=== PATIENT | female | born 1950 | race Caucasian/White ===

== ENCOUNTER → 2022-12-24 | Outpatient (CLI) | payer MEDICARE, SELFPAY | END | disposition home or self-care (01) | PROVIDERS: Visit Provider Nurse Practitioner | DX: J34.89 Other specified disorders of nose and nasal sinuses (principal) | CPT/HCPCS: 87070; 87077; 87186; 87205; 87252; 87255 ==

== ENCOUNTER → 2025-08-27 | Outpatient (CLI) | payer MEDICARE, SELFPAY ==
--- OUTSIDE RECORDS SUMMARY | 2025-08-27 23:26 | XMS RPT_ITS | CCD ---
Author Organization [facility] Care Team Providers Care Dog Boarder Name Role Phone Javier Ny Primary Care Provider [phone] Nola Velasquez MD, Grant Sterling [facility] Provi sharif Nola Velasquez MD, Grant Sterling [facility] Provi sharif KRISTY MCKNIGHT Attending Unavailable KRISTY MCKNIGHT Referring Unavailable GRANT VACA JR Primary Care Unavail able KRISTY MCKNIGHT Attending Unavailable GRANT VACA JR Referring Unavail able GRANT VACA JR [facility] Unavail able Javier Ny Primary Care Provider [phone] Rich DO, Rex E Unavailable [phone] Chary Gamez MD Unavailable Kristy Mcknight MD Unavailable Nola Velasquez MD, Grant Sterling [facility] Care Provi sharif Delbert Gibson Attending Unavailable Tano Kelly Attending Unavailable Delbert Gibson Attending Unavailable Javier Ny MD Primary Care Provider [phone] LUIS A VICTOR Referring Unavailable GRANT VACA JR Primary Care Unavail able LUIS A VICTOR Referring Unavailable GRANT VACA JR Primary Care Unavail able Rich DO, Rex E Unavailable Chary Gamez MD Unavailable [phone] Unavailable Primary Care Provider Unavailabl e CHARY GAMEZ Attending Unavailable JAVIER [place] Primary Care Unavailable CHARY GAMEZ Attending Unavailable JAVIER [place] Primary Care Unavailable REX VILLANUEVA Attending Unavailable JAVIER [place] Primary Care Unavailable Zara Key MD Primary Care Provider [phone] Elvis Pacheco MD Unavailable Kerwin Tejada Unavailable Zara Key MD Unavailable ZARA KEY Referring Unavailable ZARA KEY Primary Care Unavailable ASHOK LUNDBERG Referring Unavailable KERWIN TEJADA Primary Care Unavailable ZARA KEY Attending Unavailable SHAHID, ZARA Primary Care Unavailable BLAS TRINIDAD Attending Unavailable KERWIN TEJADA Primary Care Unavailable ZARA KEY Attending Unavailable ZARA KEY Primary Care Unavailable Allergies Allergy Classification Reported Allergen(s) Allergy Type Date of Onset Reaction(s) Facility (20 sources) Sulfamethoxazole / Trimethoprim; Translations: [SULFAMETHOXAZOLE-TR IMETHOPRIM] Drug Allergy 3 Rash [facility] (1 source) Sulfamethoxazole Drug Allergy 4 [facility] (1 source) Trimethoprim Drug Allergy 4 [facility] (1 source) sulfADIAZINE Drug Allergy 4 [facility] [place] [facility] Medications Current Medications Medication Drug Class(es) Dates Sig (Normalized) Sig (Original) acetaminophen 325 mg / HYDROcodone bitartrate 5 mg oral tablet (20 sources) Opioid Agonist Start: 08-13-2023 take 1 tablet by mouth every six hours as needed for pain HYDROcodone-acetam inophen (NORCO) 5-325 mg per tablet Indications: Strain of lumbar paraspinous muscle, initial encounter Take 1 tablet by mouth every 6 hours as needed for pain. 30 tablet 08/13/2023 Active Start: 07-15-2018 End: 07-23-2022 take 1 tablet by mouth every six hours Hydrocodone-Acetaminophen Discontinued 1 TABLET PO EVERY 6 HOURS July 15, 2018 1:00am July 23, 2022 7:05pm Comment on above: Take 1 tablet by roselyn th every 6 hours as needed for pain. anastrozole 1 mg oral tablet (1 source) Aromatase Inhibitor Start: 2 End: 3 take 1 tablet by mouth once daily anastrozole (ARIMIDEX) 1 MG tablet Indications: Ductal carcinoma in situ (DCIS) of right breast Take 1 tablet by mouth daily 90 tablet 3 01/20/2022 01/15/2023 Active b complex vitamins capsule (20 sources) take 1 capsule by mouth once daily b complex vitamins capsule Take 1 capsule by mouth daily. Active take 1 capsule by mouth once all ly b complex vitamins capsule Take 1 capsule by mouth daily. 0 Active take 1 capsule by mouth once all ly b complex vitamins capsule Take 1 capsule by mouth daily 0 Active B2/vits A,C,E/lut/zeaxanth/m in (ICAPS ORAL) (20 sources) B2/vits A,C,E/yovanny t/zeaxanth/min (ICAPS ORAL) Take by mouth. Active B2/vits A,C,E/yovanny t/zeaxanth/min (ICAPS ORAL) Take by mouth. 0 Active Comment on above: Take by mouth. bimatoprost 0.1 mg/ml ophthalmic solution (20 sources) Prostaglandin Analog Start: 8 take 0.01 drop(s) into the eye(s) once daily in the evening Bimatoprost (Lumigan) 0.01 % drops Active 1 DRP OPHTHALMIC EVERY EVENING July 15, 2018 1:00am Start: 05-07-2016 take 1 drop(s) into the eye(s) once daily at bedtime LUMIGAN 0.01 % drop ophthalmic drops Use 1 Drop in both eyes daily at bedtime. 05/07/2016 Active Start: 05-07-2016 take 1 drop(s) into the eye(s) once daily in the evening Lumigan 0.01 % ophthalmic solution instill 1 (ONE) DROP IN BOTH EYES EVERY evening 07/14/2022 Active Lumigan 0.01 % e ye drops 1 drop into both eyes every night active Annalee Su [facility] Comment on above: Use 1 Drop in both e yes daily at bedtime. calcium carbonate 1250 mg chewable tablet (1 source) Start: 8 take 1 tablet by mouth twice daily Calcium Carbonate (Calcium 500) 500 mg calcium (1,250 mg) tablet,chewable Active 500 MG PO TWICE A DAY July 15, 2018 1:00am cholecalciferol 0.025 mg oral capsule (20 sources) Vitamin D take 2 capsules by mouth once daily Cholecalciferol, Vitamin D3, 25 mcg (1,000 unit) cap Take 2 capsules by mouth once daily. Vitamin D3 Active take 1 capsule by mouth once all ly Cholecalciferol, Vitamin D3, 25 mcg (1,000 unit) cap Take 1 capsule by mouth once daily. Vitamin D3 Active take 1 tablet by mouth once malu y vitamin D3 (CHOLECALCIFEROL) 10 MCG (400 UNIT) TABS tablet Take 400 Units by mouth daily 0 Active Comment on above: Take 1 capsule by mo ut once daily. Vitamin D3 cyclobenzaprine hydrochloride 5 mg oral tablet (15 sources) Muscle Relaxant Start: 07-23-20 take 1 tablet by mouth three times daily as needed cyclobenzaprine (Flexeril) 5 MG tablet Take 5 mg by mouth 3 times daily as needed. 07/23/2022 Active famotidine 40 mg oral tablet (20 sources) Histamine-2 Receptor Antagonist take 1 tablet by mouth once daily famotidine 40 mg tablet 1 tablet by mouth once a day active Annalee Su [facility] [place] [facility] Comment on above: Take 40 mg by mouth once daily. L.acid/L.casei/B.bif/B. rudolph/FOS (PROBIOTIC BLEND ORAL) (20 sources) L.acid/L.casei/B .bif/B .rudolph/FOS (PROBIOTIC BLEND ORAL) Take by mouth. Active L.acid/L.casei/B .bif/B.rudolph/FOS (PROBIOTIC BLEND ORAL) Take by mouth. 0 Active Comment on above: Take by mouth. lecithin 1200 mg oral capsule (20 sources) Start: 07-15-2018 take 1200 mg by mouth once daily Lecithin Active 1200 MG PO DAILY July 15, 2018 1:00am take 2 capsules by mouth once da shoaib LECITHIN ORAL Take 2 capsules by mouth once daily. Active take 2 capsules by mouth once da shoaib LECITHIN ORAL Take 2 capsules by mouth once daily. 0 Active Comment on above: Take 2 capsules by m out once daily. letrozole 2.5 mg oral tablet (20 sources) Aromatase Inhibitor Start: 04-05-2022 End: 07-19-2025 take 1 tablet by mouth once daily letrozole (FEMARA) 2.5 mg tablet Take 2.5 mg by mouth once daily. 04/05/2022 Active Comment on above: Take 2.5 mg by mouth once daily. losartan potassium 100 mg oral tablet (20 sources) Angiotensin 2 Receptor Charlie Start: 07-26-2022 take 100 mg by mouth once daily Losartan Active 100 MG PO DAILY July 26, 2022 12:06pm Start: 11-13-2021 End: 06-22-2024 take 1 tablet by mouth once daily losartan (COZAAR) 100 mg tablet Indications: Essential hypertension Take 1 tablet by mouth once daily. 90 tablet 3 06/22/2024 Active Start: 09-26-2021 End: 11-13-2021 take 1.5 tablets by mouth once daily losartan (COZAAR) 50 mg tablet Indications: Essential hypertension Take 1.5 tablets by mouth once daily. 135 tablet 3 09/26/2021 11/13/2021 Discontinued Start: 09-26-2021 losartan (COZA AR) 50 MG tablet 100 mg 0 09/26/2021 Active Start: 07-15-2018 End: 07-26-2022 take 1 tablet by mouth once daily losartan (COZAAR) 50 MG tablet TAKE 1 & 1/2 (ONE AND ONE-HALF) TABLETS BY MOUTH ONCE DAILY 0 09/26/2021 Active Comment on above: Take 1 tablet by roselyn once daily. MEDICATION, NON-DATABASE (20 sources) take 2 tablets by mouth once daily MEDICATION, NON-DATABASE Take 2 tablets by mouth once daily. ambrotose AO Active take 2 tablets by mouth once all ly MEDICATION, NON-DATABASE Take 2 tablets by mouth once daily. ambrotose AO 0 Active Comment on above: Take 2 tablets by mo [facility] once daily. ambrotose AO metoprolol tartrate 25 mg oral tablet (20 sources) beta-Adrenergic Charlie Start: 11-27-2022 End: 06-22-2024 take 1 tablet by mouth twice daily metoprolol tartrate, short acting, (LOPRESSOR) 25 mg tablet Take 1 tablet by mouth two times a day. 180 tablet 3 06/22/2024 Active Comment on above: Take 1 tablet by roselyn twice daily. Milk Thistle (20 sources) Start: 07-15-2018 take 150 mg by mouth twice daily Milk Thistle Active 150 MG PO TWICE A DAY July 15, 2018 1:00am take 2 capsules by mouth once da shoaib MILK THISTLE ORAL Take 2 capsules by mouth once daily. Active take 2 capsules by mouth once da shoaib MILK THISTLE ORAL Take 2 capsules by mouth once daily. 0 Active Comment on above: Take 2 capsules by m outh once daily. Multiple Vitamin (Multi-Vitamin) tablet (8 sources) take 1 tablet by mouth in the morning Multiple Vitamin (Multi-Vitamin) tablet Take 1 tablet by mouth in the morning. Active take 1 tablet by mouth in the mo rning Multiple Vitamin (Multi-Vitamin) tablet Take 1 tablet by mouth in the morning. 0 Active Multiple Vitamin (MULTIVITAM IN ADULT PO) (20 sources) Multiple Vitamin (MULTIVITAMIN ADULT PO) Take by mouth 0 Active Multiple Vitamins-Minerals (ICAPS AREDS FORMULA PO) (8 sources) Start: 08-09-2019 Multiple Vitam ins-Minerals (ICAPS AREDS FORMULA PO) twice a day. 08/09/2019 Active Start: 08-09-2019 Multiple Vitam ins-Minerals (ICAPS AREDS FORMULA PO) twice a day. 0 08/09/2019 Active multivitamin tablet (20 sources) take 1 tablet by roselyn th once daily multivitamin tablet Take 1 tablet by mouth once daily. Active take 1 tablet by mouth once malu y multivitamin tablet Take 1 tablet by mouth once daily. 0 Active Comment on above: Take 1 tablet by roselyn th once daily. Mupirocin (2 sources) RNA Synthetase Inhibitor Antibacterial Start: 12-24-2022 Mupirocin Active 1 APPLIC TOPICAL THREE TIMES A DAY December 24, 2022 12:00am Start: 11-10-2018 End: 07-23-2022 Mupirocin Discontinued 1 CAL LIC TOPICAL DAILY November 10, 2018 1:00am July 23, 2022 7:06pm Nutritional Supplements (NUTRITIONAL SUPPLEMENT PO) (20 sources) Nutritional Supp lements (NUTRITIONAL SUPPLEMENT PO) Take by mouth Vitamin A,C, E, Zinc, Copper, 0 Active OTC NUTRITIONAL SUPPLEMENT (12 sources) take 2 tablets by mo uth once daily OTC NUTRITIONAL SUPPLEMENT Take 2 tablets by mouth once daily. Ambrotose AO Active take 1 capsule by mouth once all ly OTC NUTRITIONAL SUPPLEMENT Take 1 capsule by mouth once daily. Floragen Active perflutren lipid microspheres 1.3 mL in NaCl (PF) 0.9% 10 mL injection (DEFINITY) (11 sources) Start: 03-18-2023 End: 06-16-2024 perflutren lipid microspheres 1.3 mL in NaCl (PF) 0.9% 10 mL injection (cooala - your brands) pimecrolimus 10 mg/ml topical cream (15 sources) Calcineurin Inhibitor Immunosuppressant Start: 05-15-2021 End: 11-23-2022 pimecrolimus (Elidel) 1 % cream as needed. 05/15/2021 Active predniSONE 20 mg oral tablet (1 source) Start: 07-23-2022 take 40 mg by mouth once daily Prednisone Active 40 MG PO DAILY July 23, 2022 1:00am Probiotic Product (PROBIOTIC BLEND PO) (20 sources) take 1 capsule by mouth once daily Probiotic Product (PROBIOTIC BLEND PO) Take 1 capsule by mouth daily. Active take 1 capsule by mouth once all ly Probiotic Product (PROBIOTIC BLEND PO) Take 1 capsule by mouth daily. 0 Active Probiotic Produc t (PROBIOTIC BLEND PO) Take by mouth 0 Active Riboflavin (20 sources) take 2 capsules by m outh once daily RIBOFLAVIN PO Take 2 capsules by mouth daily. Active take 2 capsules by mouth once da shoaib RIBOFLAVIN PO Take 2 capsules by mouth daily. 0 Active Riboflavin (B-2 PO) Take by mouth 0 Active silver sulfADIAZINE 10 mg/ml topical cream (1 source) Sulfonamide Antibacterial Start: 01-12-2022 silver sulfADIAZINE (SILVADENE) 1 % cream Apply topically thin layer 2-3 times a day to skin, do not have on for radiation. 400 g 0 01/12/2022 Active 125 ml sodium chloride 9 mg/ml prefilled syringe (11 sources) Start: 03-18-2023 End: 06-16-2024 sodium chloride 0.9 % (flush) 10 mL (BD POSIFLUSH) sulfamethoxazole 800 mg / trimethoprim 160 mg oral tablet (1 source) Dihydrofolate Reductase Inhibitor Antibacterial, Sulfonamide Antimicrobial Start: 12-25-2022 take 1 tablet by mouth twice daily Sulfamethoxazole-T rimethoprim Active 1 TABLET PO TWICE A DAY December 25, 2022 12:00am triamcinolone acetonide 0.001 mg/mg topical ointment (20 sources) Corticosteroid Start: 07-16-2022 End: 06-22-2024 triamcinolone (Kenalog) 0.1 % ointment Apply topically twice a day. 07/16/2022 Active Comment on above: Apply to affected ar ea twice daily. APPLY TO AFFECTED AREA. UNABLE TO FIND (8 sources) take 2 tablets by mouth once daily UNABLE TO FIND Take 2 tablets by mouth daily. Med Name: Collatrim Active take 2 tablets by mouth once all ly UNABLE TO FIND Take 2 tablets by mouth daily. Med Name: Collatrim 0 Active Vitamin B Complex (1 source) Start: 07-15-2018 take 1 tablet by roselyn once daily Vitamin B Complex Active 1 TABLET PO DAILY July 15, 2018 1:00am vitamin b complex capsule (20 sources) take 2 capsules by mouth once daily vitamin b complex capsule Take 2 capsules by mouth once daily. Active take 2 capsules by mouth once da shoaib vitamin b complex capsule Take 2 capsules by mouth once daily. 0 Active Comment on above: Take 2 capsules by m outh once daily. Completed/Discontinued Medications Medication Drug Class(es) Dates Sig (Normalized) Sig (Original) amoxicillin 875 mg / clavulanate 125 mg oral tablet (1 source) Penicillin-class Antibacterial Start: 07-15-2018 End: 07-23-2022 take 1 tablet by mouth twice daily Amoxicillin-Pot Clavulanate Discontinued 1 TABLET PO TWICE A DAY July 15, 2018 1:00am July 23, 2022 7:05pm B Complex Vitamins (VITAMINS B COMPLEX) capsule (2 sources) take 2 capsules by mouth once daily B Complex Vitamins (VITAMINS B COMPLEX) capsule Take 2 capsules by mouth once daily. 0 Active Comment on above: Take 2 capsules by m outh once daily. esomeprazole 20 mg delayed release oral capsule (20 sources) Proton Pump Inhibitor End: 08-25-2024 take 1 capsule by mouth once daily esomeprazole magnesium 22.3 mg cpDR Take 1 capsule by mouth once daily. 08/25/2024 Discontinued End: 07-21-2023 take 20 mg by mouth once daily esomeprazole (NexIUM) 2 0 MG packet Take 20 mg by mouth daily. 0 07/21/2023 Discontinued Comment on above: Take 1 capsule by mo gah once daily. 10 ml lidocaine hydrochloride 20 mg/ml injection (1 source) Antiarrhythmic, Amide Local Anesthetic Start: 2 End: 2 SUBCUTANEOUS, NEEDED, Starting on Makenna 10/02/21 at 1539, Until Makenna 10/02/21 at 1539 lisinopril 20 mg oral tablet (1 source) Angiotensin Converting Enzyme Inhibitor Start: 8 End: 8 take 20 mg by mouth once daily Lisinopril Discontinued 20 MG PO DAILY July 15, 2018 1:00am July 15, 2018 9:33pm naproxen 375 mg oral tablet (7 sources) Nonsteroidal Anti-inflammatory Drug Start: 3 End: 4 naproxen (NAPROSYN) 375 mg tablet Indications: Strain of lumbar paraspinous muscle, initial encounter 1 - 1.5 tabs twice daily with food 75 tablet 1 08/13/2023 06/22/2024 Discontinued Comment on above: 1 - 1.5 tabs twice d aily with food 12 hr orphenadrine citrate 100 mg extended release oral tablet (1 source) Muscle Relaxant Start: 8 End: 8 take 100 mg by mouth once Orphenadrine Citrate Discontinued 100 MG PO ONCE July 15, 2018 1:00am July 15, 2018 9:34pm regadenoson 0.4 mg injection (LEXISCAN) (2 sources) Start: 4 End: 4 regadenoson 0.4 mg injection (LEXISCAN) Start: 07-03-2024 End: 07-03-2024 0.4 mg, INTRAVENOUS, ONCE, 1 dose, On 07/03/24 at 1430, Give 0.4 mg (5 mL) over ~10 seconds, followed immediately by a 5 mL saline flush. Wait 10-20 seconds, then administer the radionuclide myocardial perfusion imaging agent. valACYclovir 1000 mg oral tablet (1 source) Herpesvirus Nucleoside Analog DNA Polymerase Inhibitor, Herpes Simplex Virus Nucleoside Analog DNA Polymerase Inhibitor, Herpes Zoster Virus Nucleoside Analog DNA Polymerase Inhibitor Start: 11-10-2018 End: 11-23-2018 take 2000 mg by mouth twice daily Valacyclovir Discontinued 2000 MG PO TWICE A DAY 4 November 10, 2018 1:00am November 23, 2018 12:07am vit A/vit C/vit E/zinc/copper (ICAPS AREDS ORAL) (7 sources) Start: 08-09-2019 End: 11-23-2022 vit A/vit C/vit E/zinc/copper (ICAPS AREDS ORAL) twice daily. 08/09/2019 11/23/2022 Discontinued (Course of therapy completed) Start: 08-09-2019 vit A/vit C/vi t E/zinc/copper (ICAPS AREDS ORAL) twice daily. 0 08/09/2019 Active Comment on above: twice daily. Problems Active Problems Problem Classification Problem Date Documented Date Episodic/Chronic Alcohol-related disorders (20 sources) Alcohol abuse; Translations: [Alcohol abuse, uncomplicated] Onset: 01-20-2019 10-29-2021 Chronic Bacterial infection; unspecified site (1 source) Infection due to Staphylococcus aureus; Translations: [Methicillin susceptible Staphylococcus aureus infection, unspecified site] 12-25-2022 Episodic Cancer of breast (20 sources) Intraductal carcinoma in situ of right breast; Translations: [Intraductal carcinoma in situ of right breast] Onset: 10-09-2021 10-29-2021 Chronic Esophageal disorders (20 sources) Reed's esophagus; Translations: [Reed's esophagus without dysplasia] Onset: 08-18-2016 10-29-2021 Chronic Essential hypertension (20 sources) Hypertensive disorder; Translations: [Essential (primary) hypertension] Onset: 01-30-2014 10-29-2021 Chronic Glaucoma (20 sources) Glaucoma; Translations: [Unspecified glaucoma] Onset: 06-17-2017 10-29-2021 Chronic Heart valve disorders (20 sources) Tricuspid incompetence, non-rheumatic ; Translations: [Nonrheumatic tricuspid (valve) insufficiency] Onset: 03-18-2023 03-18-2023 Chronic Open wounds of extremities (1 source) Open wound of foot except toes with complication; Translations: [Puncture wound without foreign body, unspecified foot, initial encounter] 07-15-2018 Episodic Other aftercare (2 sources) Long-term current use of aromatase inhibitor; Translations: [longterm (current) use of aromatase inhibitors] 07-19-2024 Episodic Other ear and sense organ disorders (20 sources) Bilateral hearing loss; Translations: [Unspecified hearing loss, bilateral] Onset: 01-26-2020 10-29-2021 Chronic Other hereditary and degenerative nervous system conditions (1 source) 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; Translations: [Myelopathy in diseases classified elsewhere] Onset: 06-29-2024 06-29-2024 Chronic Other inflammatory condition of skin (20 sources) Discoid lupus erythematosus; Translations: [Discoid lupus erythematosus] Onset: 08-18-2016 10-29-2021 Chronic Other lower respiratory disease (2 sources) Other forms of dyspnea; Translations: [Other forms of dyspnea] Onset: 06-22-2024 Episodic Other nervous system disorders (1 source) Disease of spinal cord, unspecified; Translations: [Disease of spinal cord, unspecified] Onset: 05-19-2024 Chronic Other nervous system disorders (1 source) Other cord compression Onset: 06-29-2024 06-29-2024 Chronic Other nervous system disorders (1 source) Anosmia; Translations: [Anosmia] Onset: 07-17-2025 Episodic Other non-traumatic joint disorders (1 source) Hip pain; Translations: [Pain in left hip] 07-23-2022 Episodic Other screening for suspected conditions (not mental disorders or infectious disease) (5 sources) Patient encounter status; Translations: [Encounter for screening mammogram for malignant neoplasm of breast] Episodic Other upper respiratory disease (1 source) Congestion of nasal sinus; Translations: [Nasal congestion] 11-10-2018 Episodic Other upper respiratory disease (1 source) Lesion of nose; Translations: [Other specified disorders of nose and nasal sinuses] 12-24-2022 Episodic Retinal detachments; defects; vascular occlusion; and retinopathy (20 sources) 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; Translations: [Unspecified macular degeneration] Onset: 06-18-2021 10-29-2021 Chronic Skin and subcutaneous tissue infections (1 source) Cellulitis of foot; Translations: [Cellulitis of unspecified part of limb] 07-15-2018 Episodic Superficial injury; contusion (1 source) Foreign body of foot; Translations: [Superficial foreign body, unspecified foot, initial encounter] 07-15-2018 Episodic Unclassified (1 source) Low back pain, unspecified; Translations: [Low back pain, unspecified] Onset: 03-17-2024 Viral infection (1 source) Herpes simplex; Translations: [Herpesviral infection, unspecified] 11-10-2018 Episodic Past or Other Problems Problem Classification Problem Date Documented Da te Episodic/Chronic Cancer of breast (20 sources) History of malignant neoplasm of breast; Translations: [Personal history of malignant neoplasm of breast] Onset: 2 Episodic Cardiac dysrhythmias (20 sources) Tachycardia; Translations: [Tachycardia, unspecified] Onset: 4 03-18-2023 Episodic Mood disorders (4 sources) Mood disorders Onset: 4 07-17-2024 Other acquired deformities (1 source) Spondylolysis; Translations: [Spondylolisthesis, site unspecified] Onset: 4 01-03-2024 Episodic Other aftercare (3 sources) longterm (current) use of aromatase inhibitors; Translations: [longterm (current) use of aromatase inhibitors] Onset: 4 Episodic Other gastrointestinal disorders (20 sources) H/O: gastrointestinal disease; Translations: [Personal history of other diseases of the digestive system] Onset: 9 01-20-2019 Episodic Other lower respiratory disease (20 sources) Multiple nodules of lung; Translations: [Other nonspecific abnormal finding of lung field] Onset: 8 10-29-2021 Episodic Other lower respiratory disease (20 sources) Dyspnea on exertion; Translations: [Other forms of dyspnea] Onset: 4 06-22-2024 Episodic Pulmonary heart disease (20 sources) Pulmonary hypertension, unspecified; Translations: [Other chronic pulmonary heart diseases] Onset: 3 Resolved: 3 03-18-2023 Chronic Residual codes; unclassified (20 sources) Electronic cigarette user; Translations: [Other specified health status] Onset: 7 06-17-2017 Episodic Residual codes; unclassified (1 source) Other problems related to lifestyle; Translations: [Current every day vaping] Onset: 4 Episodic Screening and history of mental health and substance abuse codes (2 sources) Encounter for screening for depression; Translations: [Encounter for screening examination for other mental health and behavioral disorders] Onset: 4 Episodic Spondylosis; intervertebral disc disorders; other back problems (7 sources) Low back pain; Translations: [Low back pain] Onset: 4 07-23-2022 Episodic Substance-related disorders (20 sources) Tobacco user; Translations: [Nicotine dependence, unspecified, uncomplicated] Onset: 6 Resolved: 0 06-04-2020 Chronic Results Test Name Value Interpretation Reference Range Facility [facility] 06-13-2025 [facility] Office Visit (CARDAGHWW) RAHEL RALPH ([id number]) 1950 F Date Time Provider Department 06/13/25 10:00 AM BLAS TRINIDAD CARDAGHWW During your visit today, we recorded the following information about you: Pulse Respiration Blood pressure Weight 68/minute 18/minute 132/84 75.7 kg Height 1.676 m Violetta Xavier LPN 06/13/2025 11:13 AM Signed Patient c/o elevated BP for the past 3 months. States she has also had nose bleeds off and on for the past couple months. Patient states she lost her sense of taste and smell 5 months ago. Blas Trinidad APRN.[facility] 06/13/2025 11:13 AM Signed PRIMARY CARE PHYSICIAN: Zara Key [address] [place] [address] Chief Complaint Cardiac Follow Up HISTORY OF PRESENT ILLNESS: Mrs. Ralph is a 74 year old female who has a past medical history of hypertension comes into the office for routine cardiac follow up. Patient is known to Dr. Victor, who first saw the patient 06/01/2019. Patient was initially referred in 2019 for hypertension and regurgitation. She was told in the past that she had pulmonary hypertension. She was ordered to have a repeat echocardiogram done along with an EKG. Her repeat echo showed an EF of 63% with trace regurgitation. Echocardiograms were then recommended to be performed every 2-3 years if she is having symptoms such as chest pain or shortness of breath. She had another echo done in 2022 that resulted the same as the one in 2020. At her 2023 follow up, she was expressing some dyspnea on exertion and was ordered to undergo a nuclear stress test. Her stress test was low risk as there was no evidence for inducible ischemia. She comes in today for her routine follow up. Today she feels well but has reported that she has been having frequent nose bleeds over the past few days. She also reports that her blood pressure has been elevated during these episodes in the 170's. We discussed with her to change her scheduled metoprolol to carvedilol for better blood pressure control. She also explains that she drinks at least 5 glasses of hard liquor every day. She was educated on the risks of bleeding with increased alcohol consumption and recommended that she try to limit drinks to 1-2 per day or no drinks per day. Patient was agreeable to both changing medication and trying to limit alcohol consumption. Pt denies chest pain, leg swelling, shortness of breath, heart palpitations, orthopnea, cough, fever, dizziness, near syncope or syncope, nausea, vomiting, diaphoresis, or falls. Reviewed medications, recent blood work, and testing. Reviewed with patient and adjusted as needed : PMH, PSH, Fam hx, Social hx, Allergies. Medications: Current Outpatient Medications Medication Sig Dispense Refill vit A/vit C/vit E/zinc/copper (ICAPS AREDS PO) OTC NUTRITIONAL SUPPLEMENT Take 2 tablets by mouth once daily. Ambrotose AO OTC NUTRITIONAL SUPPLEMENT Take 1 capsule by mouth once daily. Floragen cyclobenzaprine (FLEXERIL) 5 mg tablet Take 5 mg by mouth three times a day as needed for muscle spasm. losartan (COZAAR) 100 mg tablet Take 1 tablet by mouth once daily. 90 tablet 3 metoprolol tartrate, short acting, (LOPRESSOR) 25 mg tablet Take 1 tablet by mouth two times a day. 180 tablet 3 HYDROcodone-acetaminop hen (NORCO) 5-325 mg per tablet Take 1 tablet by mouth every 6 hours as needed for pain. 30 tablet 0 famotidine (PEPCID) 40 mg tablet Take 40 mg by mouth once daily. letrozole (FEMARA) 2.5 mg tablet Take 2.5 mg by mouth once daily. B2/vits A,C,E/lut/zeaxanth/min (ICAPS ORAL) Take by mouth. Cholecalciferol, Vitamin D3, 25 mcg (1,000 unit) cap Take 2 capsules by mouth once daily. Vitamin D3 L.acid/L.casei/B.bif/B .rudolph/FOS (PROBIOTIC BLEND ORAL) Take by mouth. multivitamin tablet Take 1 tablet by mouth once daily. MEDICATION, NON-DATABASE Take 2 tablets by mouth once daily. ambrotose AO LUMIGAN 0.01 % drop ophthalmic drops Use 1 Drop in both eyes daily at bedtime. vitamin b complex capsule Take 2 capsules by mouth once daily. LECITHIN ORAL Take 2 capsules by mouth once daily. MILK THISTLE ORAL Take 2 capsules by mouth once daily. No current facility-administered medications for this visit. Review of Systems Constitutional: Negative for activity change, appetite change, chills, diaphoresis, fatigue, fever and unexpected weight change. HENT: Negative for facial swelling and trouble swallowing. Eyes: Negative for visual disturbance. Respiratory: Negative for apnea, cough, chest tightness, shortness of breath, wheezing and stridor. Cardiovascular: Negative for chest pain, palpitations and leg swelling. Gastrointestinal: Negative for abdominal distention, abdominal pain, blood in stool, nausea and vomiting. Genitourinary: Negative for hematuria. Musculoskeletal: Negative for arthralgias (more content not included)... Normal [facility] Velma 06-13-2025 FARA Telephone (AGCARDPOB ) RAHEL RALPH ([id number]) 1950 F Date Time Provider Department 06/13/25 BLAS TRINIDAD During your visit today, we recorded the following information about you: Eugenie North LPN 06/13/2025 12:21 PM Signed Patient called [facility] to report she is having an endoscopy/colonoscopy on Wednesday and wants to wait until after procedure to begin carvedilol 6.25 mg BID. Patient seen 06/13/2025, medication changes made at that visit. Eugenie North LPN Allergies As of Date: 06/13/2025 Noted Allergy Reaction SULFAMETHOXAZOLE-TRIME THOPRIM 03/18/2023 2 - Rash Date Reviewed: 06/13/2025 Reviewed by: Blas Trinidad APRN.RESTORATIVE CARE TECHNICIAN - Fully Assessed Reason for Visit: Patient Update [1234] Prescriptions as of 06/13/2025 - carvedilol (COREG) 6.25 mg tablet Take 1 tablet by mouth two times a day with meals. - vit A/vit C/vit E/zinc/copper (ICAPS AREDS PO) - OTC NUTRITIONAL SUPPLEMENT Take 2 tablets by mouth once daily. Ambrotose AO - OTC NUTRITIONAL SUPPLEMENT Take 1 capsule by mouth once daily. Floragen - cyclobenzaprine (FLEXERIL) 5 mg tablet Take 5 mg by mouth three times a day as needed for muscle spasm. - losartan (COZAAR) 100 mg tablet Take 1 tablet by mouth once daily. - HYDROcodone-acetaminop hen (NORCO) 5-325 mg per tablet Take 1 tablet by mouth every 6 hours as needed for pain. - famotidine (PEPCID) 40 mg tablet Take 40 mg by mouth once daily. - letrozole (FEMARA) 2.5 mg tablet Take 2.5 mg by mouth once daily. - B2/vits A,C,E/lut/zeaxanth/min (ICAPS ORAL) Take by mouth. - Cholecalciferol, Vitamin D3, 25 mcg (1,000 unit) cap Take 2 capsules by mouth once daily. Vitamin D3 - L.acid/L.casei/B.bif/B .rudolph/FOS (PROBIOTIC BLEND ORAL) Take by mouth. - multivitamin tablet Take 1 tablet by mouth once daily. - MEDICATION, NON-DATABASE Take 2 tablets by mouth once daily. ambrotose AO - LUMIGAN 0.01 % drop ophthalmic drops Use 1 Drop in both eyes daily at bedtime. - vitamin b complex capsule Take 2 capsules by mouth once daily. - LECITHIN ORAL Take 2 capsules by mouth once daily. - MILK THISTLE ORAL Take 2 capsules by mouth once daily. 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*10/09/2021 Mild pulmonary hypertension (HCC) [I27.20] 03/18/2023 08/11/2023 Tricuspid valve regurgitation, nonrheumatic [I3*03/18/2023 LOPEZ (dyspnea on exertion) [R06.09] 06/22/2024 Tachycardia [R00.0] 06/22/2024 Bronchitis [J40] 06/07/2025 Cellulitis of foot [L03.119] 06/07/2025 Foreign body in foot [S90.859A] 06/07/2025 Congestion of paranasal sinus [R09.81] 06/07/2025 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 Herpes simplex virus (HSV) infection [B00.9] 06/07/2025 Infection due to Staphylococcus aureus [A49.01] 06/07/2025 Lesion of nose [J34.89] 06/07/2025 Low back pain [M54.50] 03/17/2024 Malignant neoplasm of breast (HCC) [C50.919] 08/19/2022 Maxillary sinusitis [J32.0] 06/07/2025 Otitis media [H66.90] 06/07/2025 Encounter Status:Closed by EUGENIE NORTH on 06/13/25 [facility] Relevant diagnostic tests/la boratory data Narrativeon 06-05-2025 Fall risk assessment no [employer] Work Phone: MEDS REVIEW Documentation of current medications (procedure) [employer] Work Phone: MEDS REVIEWD Medications reviewed without changes [employer] Work Phone: CNPLaine 08-29-2024 [facility]AGSAM[facility] JANUARYRAHEL ([id number]) 1950 F Date Time Provider Department 08/29/24 ZARA KEY During your visit today, we recorded the following information about you: Cara Bobo MA 08/29/2024 11:27 AM Signed ----- Message from Lion Garcia sent at 08/25/2024 3:23 PM EST ----- [facility]/ MED[facility]/Zara Key MD / Urgent Matter surgical clearance form needs to be signed Subject Line Format: Medicine / Zara Key MD / [Issue] Select Department Name For [employer] Routing Assistance: MEDEM => [facility]/[employer] APPT [facility] [[id number]] = Patient: Rahel Da Silva January Date of : 1950 Primary Care Provider: Zara Key MD The reason I am contacting the office is: Call Back - Patient is requesting a call back from Dr Key about Tylor from [facility] had called several and left message, the surgical clearance form that was filled out this morning the patient has not been signed and the pat is scheduled for surgery on Wednesday at 0700 this need an urgent matter please contact Tylor. Person calling if other than patient: Ivan garcia [facility] [phone] Best contact number: [phone] Thank you, Lion Trinidad August 25, 2024 3:23 PM Cara Bobo MA 08/29/2024 11:27 AM Signed Forms where faxed spoke to office on Saturday 08/25 Allergies As of Date: 08/29/2024 Noted Allergy Reaction SULFAMETHOXAZOLE-TRIME THOPRIM 03/18/2023 2 - Rash Date Reviewed: 08/25/2024 Reviewed by: Zara Key MD - Fully Assessed Reason for Visit: Patient Question [8637] Prescriptions as of 08/29/2024 - OTC NUTRITIONAL SUPPLEMENT Take 2 tablets by mouth once daily. Ambrotose AO - OTC NUTRITIONAL SUPPLEMENT Take 1 capsule by mouth once daily. Floragen - cyclobenzaprine (FLEXERIL) 5 mg tablet Take 5 mg by mouth three times a day as needed for muscle spasm. - losartan (COZAAR) 100 mg tablet Take 1 tablet by mouth once daily. - metoprolol tartrate, short acting, (LOPRESSOR) 25 mg tablet Take 1 tablet by mouth two times a day. - HYDROcodone-acetaminop hen (NORCO) 5-325 mg per tablet Take 1 tablet by mouth every 6 hours as needed for pain. - famotidine (PEPCID) 40 mg tablet Take 40 mg by mouth once daily. - letrozole (FEMARA) 2.5 mg tablet Take 2.5 mg by mouth once daily. - B2/vits A,C,E/lut/zeaxanth/min (ICAPS ORAL) Take by mouth. - Cholecalciferol, Vitamin D3, 25 mcg (1,000 unit) cap Take 2 capsules by mouth once daily. Vitamin D3 - L.acid/L.casei/B.bif/B .rudolph/FOS (PROBIOTIC BLEND ORAL) Take by mouth. - multivitamin tablet Take 1 tablet by mouth once daily. - MEDICATION, NON-DATABASE Take 2 tablets by mouth once daily. ambrotose AO - LUMIGAN 0.01 % drop ophthalmic drops Use 1 Drop in both eyes daily at bedtime. - vitamin b complex capsule Take 2 capsules by mouth once daily. - LECITHIN ORAL Take 2 capsules by mouth once daily. - MILK THISTLE ORAL Take 2 capsules by mouth once daily. Problem List As Of Date 08/29/2024 Noted Resolved Hypertension [I10] 01/30/2014 Reed's esophagus [K22.70] 08/18/2016 Discoid lupus erythematosus [L93.0] 08/18/2016 Glaucoma [H40.9] 06/17/2017 Electronic cigarette use [Z78.9] 06/17/2017 Tobacco use disorder [F17.200] 03/26/2016 06/04/2020 Pulmonary nodules [R91.8] 01/18/2018 History of gastric polyp [Z87.19] 01/20/2019 Alcohol abuse [F10.10] 01/20/2019 Bilateral hearing loss [H91.93] 01/26/2020 H/O cataract removal with insertion of prosthet*11/07/2019 Macular degeneration of right eye [H35.30] 06/18/2021 History of ductal carcinoma in situ (DCIS) of b*10/09/2021 Mild pulmonary hypertension (HCC) [I27.20] 03/18/2023 08/11/2023 Tricuspid valve regurgitation, nonrheumatic [I3*03/18/2023 LOPEZ (dyspnea on exertion) [R06.09] 06/22/2024 Tachycardia [R00.0] 06/22/2024 Encounter Status:Closed by CARA BOBO on 08/29/24 [facility] CNPN Telephone (AGSAM) RAHEL RALPH Rekha ([id number]) 1950 F Date Time Provider Department 08/29/24 ZARA KEY During your visit today, we recorded the following information about you: Cara Bobo MA 08/29/2024 8:13 AM Signed ----- Message from Zara Key MD sent at 08/26/2024 3:52 PM EST ----- Please update patent that chest x-ray looks fine. Already sent completed clearance form to surgeon so should be good to go for surgery MD Jeramie Lerner Amanda, MA 08/29/2024 8:13 AM Signed RESULTS SENT TO PT Allergies As of Date: 08/29/2024 Noted Allergy Reaction SULFAMETHOXAZOLE-TRIME THOPRIM 03/18/2023 2 - Rash Date Reviewed: 08/25/2024 Reviewed by: Zara Key MD - Fully Assessed Reason for Visit: Results [95] Prescriptions as of 08/29/2024 - OTC NUTRITIONAL SUPPLEMENT Take 2 tablets by mouth once daily. Ambrotose AO - OTC NUTRITIONAL SUPPLEMENT Take 1 capsule by mouth once daily. Floragen - cyclobenzaprine (FLEXERIL) 5 mg tablet Take 5 mg by mouth three times a day as needed for muscle spasm. - losartan (COZAAR) 100 mg tablet Take 1 tablet by mouth once daily. - metoprolol tartrate, short acting, (LOPRESSOR) 25 mg tablet Take 1 tablet by mouth two times a day. - HYDROcodone-acetaminop hen (NORCO) 5-325 mg per tablet Take 1 tablet by mouth every 6 hours as needed for pain. - famotidine (PEPCID) 40 mg tablet Take 40 mg by mouth once daily. - letrozole (FEMARA) 2.5 mg tablet Take 2.5 mg by mouth once daily. - B2/vits A,C,E/lut/zeaxanth/min (ICAPS ORAL) Take by mouth. - Cholecalciferol, Vitamin D3, 25 mcg (1,000 unit) cap Take 2 capsules by mouth once daily. Vitamin D3 - L.acid/L.casei/B.bif/B .rudolph/FOS (PROBIOTIC BLEND ORAL) Take by mouth. - multivitamin tablet Take 1 tablet by mouth once daily. - MEDICATION, NON-DATABASE Take 2 tablets by mouth once daily. ambrotose AO - LUMIGAN 0.01 % drop ophthalmic drops Use 1 Drop in both eyes daily at bedtime. - vitamin b complex capsule Take 2 capsules by mouth once daily. - LECITHIN ORAL Take 2 capsules by mouth once daily. - MILK THISTLE ORAL Take 2 capsules by mouth once daily. Problem List As Of Date 08/29/2024 Noted Resolved Hypertension [I10] 01/30/2014 Reed's esophagus [K22.70] 08/18/2016 Discoid lupus erythematosus [L93.0] 08/18/2016 Glaucoma [H40.9] 06/17/2017 Electronic cigarette use [Z78.9] 06/17/2017 Tobacco use disorder [F17.200] 03/26/2016 06/04/2020 Pulmonary nodules [R91.8] 01/18/2018 History of gastric polyp [Z87.19] 01/20/2019 Alcohol abuse [F10.10] 01/20/2019 Bilateral hearing loss [H91.93] 01/26/2020 H/O cataract removal with insertion of prosthet*11/07/2019 Macular degeneration of right eye [H35.30] 06/18/2021 History of ductal carcinoma in situ (DCIS) of b*10/09/2021 Mild pulmonary hypertension (HCC) [I27.20] 03/18/2023 08/11/2023 Tricuspid valve regurgitation, nonrheumatic [I3*03/18/2023 LOPEZ (dyspnea on exertion) [R06.09] 06/22/2024 Tachycardia [R00.0] 06/22/2024 Encounter Status:Closed by CARA BOBO on 08/29/24 [facility] CNOVon 08-25-2024 CNOV Office Visit (AGSAM) RAHEL RALPH ([id number]) 1950 F Date Time Provider Department 08/25/24 10:40 AM ZARA KEY AGSAM During your visit today, we recorded the following information about you: Pulse Respiration Blood pressure Weight 95/minute 12/minute 128/76 76.6 kg Height 1.702 m Zara Key MD 08/25/2024 12:48 PM Addendum [facility] [address] [place] [address] Date of Evaluation: 08/25/2024 Patient Name: Rahel Ralph : 1950 Chief Complaint: Patient presents with: Establish Care Subjective Ms. Ralph is a 73 year old female with PMH significant for HTN, hx of R breast cancer s/p lumpectomy and radiation therapy, glaucoma, dry macular degeneration, osteoporosis, discoid lupus who presents for preoperative evaluation as well as establishing care with me. She sees GI (Dr Contreras) regularly and will see them every 5 years for colonoscopy and EGD. She sees Dr. Caal (ophthalmology) every 4 months. She sees radiation oncologist and oncology annually. She is on femara and will be on it for 5 years. She drinks alcohol daily and never had DT's when stopping alcohol. She usually drinks vodka and seltzer and will have 4-5 drinks a day. She has been drinking daily for last 20 years. She notes that surgeon is aware. HPI Referring surgeon: Dr. Sagar Valladares Date of surgery: 08/28/2024 Planned surgery/procedure: C6-C7 anterior cervical discectomy fusion Indication for planned surgery/procedure: neck pain Anticoagulant use: No Any heart related conditions: Yes, HTN Any history of arrhythmias: No Any lung conditions: No Diagnosis: Any history of DVT/PE: No Diabetes: No Any kidney disease or anemia: No Smoker: vaping, Do you get short of breath when you lie flat? No Are you currently on oxygen? No Any complications with previous surgeries? No If yes, what complication: Any previous adverse reactions to anesthesia? No Do you see any specialists? Cardiology, GI, ophthalmology, living coach (wears hearing aids) Any chest pain, shortness of breath, syncope, near syncope within the last 4 weeks? No Any shortness of breath or chest pain with light activity? No Is patient able to walk 4 blocks or 2 flight of stairs without significant chest pain, shortness of breath, or fatigue? Yes Any other recent surgeries: Yes Presurgical testing was completed on: 08/15/2024 Patient is able to perform the following physical activity: Walk indoors, such as around the house (1.75 METs) Do light work around the house, such as dusting or washing dishes (2.70 METs) Take care of self; that is eating, dressing, bathing, using the toilet (2.75 METs) Walk a block or two on level ground (2.75 METs) Do moderate work around the house such as vacuuming, sweeping floors, or carrying in groceries (3.50 METs) Do yardwork, such as raking leaves, weeding,or pushing a power mower (4.50 METs) Climb a flight of stairs or walk up a hill (5.50 METs) Significant anesthesia considerations: None. Review of Systems Constitutional: Negative for appetite change and unexpected weight change. HENT: Positive for hearing loss (has hearing aids). Negative for trouble swallowing. Eyes: Positive for visual disturbance (glaucoma, macular degeneration). Respiratory: Negative for shortness of breath and wheezing. Cardiovascular: Negative for chest pain and leg swelling. Gastrointestinal: Negative for abdominal pain, constipation and diarrhea. Genitourinary: Negative for difficulty urinating and dysuria. Musculoskeletal: Positive for arthralgias and neck pain. Skin: Negative for rash. Neurological: Negative for dizziness, syncope, weakness and light-headedness. Hematological: Does not bruise/bleed easily. Psychiatric/Behavioral : Negative for confusion and hallucinations. 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 pressure is elevated Hypertension Macular degeneration Osteoporosis Plaque psoriasis PAST SURGICAL HISTORY Procedure Laterality Date APPENDECTOMY BREAST LUMPECTOMY HX Right 10/09/2021 BUNIONECTOMY, LAPIDUS-TYPE Bilateral 1970 BX OF BREAST; INCISIONAL Right 09/23/2021 CATARACT EXTRACTION HX Right 11/07/2019 COLONOSCOPY FLX DX W/COLLJ SPEC WHEN PFRMD 2012 Colonoscopy COLONOSCOPY SCREENING 11/01/2020 DERM PATH BIOPSY PC 2017 chest TONSILLECTOMY PRIMARY/SECONDARY Tonsillectomy TUBAL LIGATION, 1968 FAMILY HISTORY Problem Relation Age of Onset Lung Cancer Mother Ischemic Heart Disease Father 60 Diabetes Father other (Gallbladder CA) Father other (Liver) Father cholangiocarcinoma Heart Attack Father 60 Cancer Brother Agent orange, (more content not included)... Normal [facility] XR CHEST 2V FRONTAL/LATon XR CHEST 2V FRONTAL/LAT * * *Final Report* * * DATE OF EXAM: Aug 25 2024 12:20PM LDX 5291 - XR CHEST 2V FRONTAL/LAT / PROCEDURE REASON: multiple diagnoses * * * * Physician Interpretation * * * * EXAMINATION: CHEST RADIOGRAPH (2 VIEW FRONTAL and LATERAL) CLINICAL HISTORY: Current every day vaping Pre-op evaluation MQ: [id number] EXAM DATE/TIME: 08/25/2024 12:20 PM COMPARISON: No relevant prior studies available. RESULT: Lines, tubes, and devices: None. Lungs and pleura: There is a small linear band of fibrosis/atelectasis in the right lung base. No consolidation. No lung mass. No pleural effusion. No pneumothorax. Cardiomediastinal silhouette: Unremarkable cardiomediastinal silhouette. Bones and soft tissues: Unremarkable. IMPRESSION: Unremarkable exam with no evidence of acute disease. 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 Postmenopausal. RISK FACTORS FOR OSTEOPOROSIS AND ASSOCIATED FRACTURES REPORTED BY THIS PATIENT: Please refer to Bone Health Questionnaire in the EMR CURRENT THERAPY: Please refer to Bone Health Questionnaire in the EMR TECHNICAL LIMITATIONS: Degenerative disease of the spine RESULTS: Lumbar spine (L2, L3, L4): 2.308 g/cm2, T-score 9.2, Z-score 10.6 Lumbar spine: 2021: 2.252 g/cm2 Statistically significant increase Right Femoral Neck: 1.271 g/cm2, T-score 1.7, Z-score 3.3 Right Total Hip: 1.299 g/cm2, T-score 2.3, Z-score 3.7 Right Total Hip: 2021: 1.292 g/cm2 No statistically significant change Left Femoral Neck: 1.280 g/cm2, T-score 1.7, Z-score 3.4 Left Total Hip: 1.266 g/cm2, T-score 2.1, Z-score 3.4 Left Total Hip: 2021: 1.294 g/cm2 No statistically significant change CHANGE IS STATISTICALLY SIGNIFICANT IN THE SPINE OR HIP IF GREATER THAN OR EQUAL TO 0.04 g/cm2 VERTEBRAL FRACTURE ASSESSMENT Not performed. TRABECULAR BONE ASSESSMENT TBS not performed: not ordered IMPRESSION: THE LOWEST T-SCORE IS 1.7 IN THE RIGHT AND LEFT HIPS 1) DIAGNOSIS (based on BMD alone): NORMAL BONE DENSITY - Caution: Medical conditions other than osteoporosis may cause low bone density, such as osteomalacia or renal osteodystrophy. Clinical correlation is necessary. 2) FRACTURE RISK (based on BMD alone) - NOT INCREASED - Caution: Fracture risk may be increased independent of BMD in patients with corticosteroid use, age greater than 65 years, or a history of prior fragility fracture. - FRAX was not calculated: normal bone density RECOMMENDATIONS: Follow-up in 2 years or as clinically indicated. Patients that are taking corticosteroids, are transplant recipients or have hyperparathyroidism should have annual follow-up. Follow-up scans should always be done on the same machine for accurate comparison. FOR MORE INFORMATION ABOUT DIAGNOSIS AND TREATMENT: [facility]:? www.ccf.org/arthritis/ osteo National Osteoporosis Foundation:? www.nof.org International Society of Clinical Densitometry www.iscd.org Freight Breaker: FORREST Transcribe Date/Time: Aug 27 2024 10:22P Dictated by : CHARLI AGOSTO MD This examination was interpreted and the report reviewed and electronically signed by: CHARLI AGOSTO MD on Aug 27 2024 10:24PM EST [id number] 1.7 Normal [facility] KITA SCREENING W TOMOon 08-23 KITA SCREENING W BARTOLO * * *Final Report* * * DATE OF EXAM: Aug 23 2024 4:40PM LDW 0582 - KITA SCREENING W BARTOLO / PROCEDURE REASON: D05.11 Ductal carcinoma in situ (DCIS) of right breast * * * * Physician Interpretation * * * * [address] [address] #[id number] - KITA SCREENING W BARTOLO HISTORY: Patient is 73 years old and is seen for screening. No current complaints. The patient has a history of right breast cancer at age 71. COMPARISON STUDIES: The present examination has been compared to prior imaging studies dated 07/24/2020 (mammogram), 07/29/2021 (mammogram), 09/16/2021 (mammogram), 09/23/2021 (mammogram), 10/02/2021 (mammogram), 08/03/2022 (mammogram) and 08/19/2023 (mammogram). MAMMOGRAM TECHNIQUE: The study was acquired using full field digital technology and interpreted from soft copy. Digital Breast Tomosynthesis (DBT) images were obtained and used to assist in the interpretation of this examination. Computer-aided detection was utilized by the radiologist in the interpretation of this examination. MAMMOGRAM FINDINGS: The breasts are heterogeneously dense, which may obscure small masses. There are post-operative changes in the right breast. No suspicious masses, calcifications or other abnormalities are seen in either breast. IMPRESSION: There is no mammographic evidence of malignancy. Routine screening mammogram is recommended. Annual mammogram will be due in 1 year. BI-RADS Category 2: Benign Interpreting Radiologist: Lindasy Mtz M.D. Electronically signed on: 08/24/2024 Freight Breaker: GILMA Transcribe Date/Time: Aug 23 2024 3:58P Dictated by : LINDSAY MTZ MD This examination was interpreted and the report reviewed and electronically signed by: LINDSAY MTZ MD on Aug 24 2024 3:05PM EST [id number] Normal [facility] 29on 08-22-2024 29 Encounter addended b y: Nadira Lindsey RN on: 08/22/2024 2:34 PM Actions taken: Charge Capture section accepted Normal [facility] Hospital Encounteron 024 Hospital Encounter [id number] January,Jose Da Silva 1950 F Date Provider Department Center 08/22/2024 [id number] RAD ON None Family History Problem Relation Age of Onset Cancer Mother Comments: Lung cancer Other Father Heart failure Father Diabetes Father Liver cancer Father Cancer Father Bladder Cancer Brother Cancer Brother Other Maternal Grandmother Diabetes Maternal Grandmother Diabetes Paternal Grandmother Cancer Paternal Grandmother Family Status - Relation Status Age at Mother Father Brother Alive Maternal Grandmother Paternal Grandmother Level of Service:64797 PA OFFICE/OUTPATIENT ESTABLISHED LOW MDM 20 MIN Reason for Visit and Comments: Follow-up [[id number]] [facility] Nursing Noteon 08-22-2024 Nursing Note Patient here today f or a follow up, she presents alone. She denies any pain currently. Patient reports skin at the breast is without issue or concern. Patient reports a good appetite and decreased energy level. Patient states she is going to have neck surgery this coming Wednesday and reports some inactivity due to the condition. Patient also reports some stress related to upcoming surgery. Patient still follows with Dr. Villanueva, Patient reports she is getting mammogram and DEXA scan on 08.23.24. Patient is still taking Letrozole. [facility] Progress Noteon 08-22-2024 Progress Note RADIATION ONCOLOGY FOLLOW UP PATIENT: Rahel Ralph DATE OF SERVICE: 08/22/2024 : 1950 AGE: 73 y.o. 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 STAGE: cTis N0 M0, 0; pTis(DCIS) NX M0, 0 HISTORY OF PRESENT ILLNESS: Ms. Ralph is a 73-year-old female who was noted to have an abnormal screening mammogram on 07/29/21. Biopsy was recommended. Biopsy on 09/25/21 noted at least DCIS, grade 2 with papillary architecture. They noted findings were concerning for an encapsulated papillary carcinoma or a papillary type of 005. It was ER positive at greater than 95%. On 10/09/21 at [facility], Ms. Ralph underwent a right breast lumpectomy with AILEEN meat trimmer. She presented for postoperative radiation which completed 01/16/2022. She started Arimidex on 01/20/2022. This was changed to letrozole in March 2022 due to side effects. INTERVAL SINCE RADIATION: 2 1/2 years ? 12/10/21 - 01/16/22: 50.40/50.40 Gy to the R Breast in 28 fractions of 1.80 Gy using the 3D/Daily IGRT technique with 6 &10 MV over 37 days. INTERVAL HISTORY: Patient presents for follow-up today. From the breast standpoint, she is doing well. No new concerns. She is scheduled for her mammogram along with a bone density test tomorrow in [place]. She continues to use a moisturizing soap in the region. She is dealing with disc issues in her back. She is scheduled to have C-spine surgery next week at [facility]. She notes that later next year she will have a lower back surgery. She had to retire this year due to the symptoms. No respiratory or cardiac complaints. No swelling in extremities. No bladder issues. She notes some constipation but she is not as active as what she used to be which she feels contributes. She continues on the letrozole daily. She continues to follow with her other physicians. PAST MEDICAL HISTORY: Past Medical History: Diagnosis Date Reed esophagus Breast cancer (HCC) Discoid lupus Glaucoma Hypertension Macular degeneration PAST SURGICAL HISTORY: Past Surgical History: Procedure Laterality Date APPENDECTOMY N/A 1969 BREAST LUMPECTOMY Right BUNIONECTOMY Bilateral 09/23/2021 COLONOSCOPY 2012 INTRACAPSULAR CATARACT EXTRACTION Right 11/07/2019 TONSILLECTOMY (HISTORICAL) 1956 TUBAL LIGATION 1967 ALLERGIES: Allergies as of 08/22/2024 - Reviewed 08/22/2024 Allergen Reaction Noted Bactrim [sulfamethoxazole-trim ethoprim] Rash 09/03/2023 MEDICATIONS: Current Outpatient Medications Medication Sig Dispense Refill b complex vitamins capsule Take 1 capsule by mouth daily. cholecalciferol (Vitamin D-3) 25 MCG (1000 UT) capsule Take 1 capsule by mouth in the morning. cyclobenzaprine (Flexeril) 5 MG tablet Take 5 mg by mouth 3 times daily as needed. famotidine (Pepcid) 40 MG tablet Take 40 mg by mouth in the morning. letrozole (Femara) 2.5 MG tablet Take 1 tablet (2.5 mg total) by mouth daily. Take with or without food. 90 tablet 3 losartan (Cozaar) 100 MG tablet Take 100 mg by mouth in the morning. Lumigan 0.01 % ophthalmic solution instill 1 (ONE) DROP IN BOTH EYES EVERY evening metoprolol tartrate (Lopressor) 25 MG tablet Take 25 mg by mouth 2 times daily. Multiple Vitamin (Multi-Vitamin) tablet Take 1 tablet by mouth in the morning. Multiple Vitamins-Minerals (ICAPS AREDS FORMULA PO) twice a day. pimecrolimus (Elidel) 1 % cream as needed. Probiotic Product (PROBIOTIC BLEND PO) Take 1 capsule by mouth daily. RIBOFLAVIN PO Take 2 capsules by mouth daily. triamcinolone (Kenalog) 0.1 % ointment Apply topically twice a day. UNABLE TO FIND Take 2 tablets by mouth daily. Med Name: Collatrim No current facility-administered medications for this encounter. REVIEW OF SYSTEMS: As above. Pain score- 0. KPS: 90 SUMMARY OF SIGNIFICANT X-RAY/LABORATORY FINDINGS: Mammogram on 08/19/2023 noted treatment changes on the right. Annual followup recommended. BMP on 06/24/2024 was within normal limits except for a sodium low at 134, chloride low at 93. Anion gap was borderline high at 16. eGFR was normal at 64. PHYSICAL EXAM: BP (!) 158/97 Pulse 84 Temp 98 ?F (36.7 ?C) Resp 20 Ht 5' 7 (1.702 m) Wt 168 lb 9.6 oz (76.5 kg) SpO2 98% BMI 26.41 kg/m? /Pain Score: 0 - No pain /Fatigue Assessment: Able to perform daily activities with rest periods GENERAL: Awake, alert, oriented x3, no anxiety, dressed appropriately, appears of stated age. Ambulates without assistance. Speech pattern fluent. NECK: Symmetric. NODES: No supraclavicular, infraclavicular, or axillary adenopathy bilaterally. BREAST: Asymmetric. Right breast with the postsurgery changes. No suspicious mass in either breast. No nipple discharge. Mild hyperpigmented changes are noted in the treatment region. Otherwise the area is in very good condition. LUNGS: Clear to auscultation bila (more content not included)... Normal [facility] Office Visiton 07-19-2024 Follow-up visit [id number] JanuaryJose 1950 F Date Provider Department Center 07/19/2024 [id number] VILLANUEVA ONC None Family History Problem Relation Age of Onset Cancer Mother Comments: Lung cancer Other Father Heart failure Father Diabetes Father Liver cancer Father Bladder Cancer Brother Other Maternal Grandmother Diabetes Maternal Grandmother Diabetes Paternal Grandmother Family Status - Relation Status Age at Mother Father Brother Alive Maternal Grandmother Paternal Grandmother Level of Service:94612 PA OFFICE/OUTPATIENT ESTABLISHED MOD [facility] 30 MIN Reason for Visit and Comments: Breast Cancer [302] - Patient thinks she's due for a Bone Density exam. States that she will be getting neck surgery within the coming weeks. Sees Surgeon tomorrow regarding this. Needs medication refill. Normal [facility] Progress Noteon 07-19-2024 Progress Note Hematology/Oncology Follow up Visit Diagnosis/Treatment Summary: 1) right breast DCIS grade II with an encapsulated papillary carcinoma (without definite invasion) s/p right lumpectomy on 10/09/21 at [facility]. DCIS spanning 18mm. [place] nodes were omitted. Margins negative. pTis cN0. ER+ >95% - post lumpectomy radiation therapy completed 01/16/22 - AI for 5 years recommended. Arimidex started 01/20/22 but changed to Letrozole in March 2022, which she is tolerating better. Interval History: Rahel Ralph is a 73 y.o. female who comes in today for routine follow up. She has no new breast concerns today and is tolerating Letrozole well, however reports that she is having neck surgery performed at [facility] in the near future. She is due for her mammogram and DEXA scans soon. She has no other complaints today and denies any fatigue, fevers, chills, recent infections, bleeding, blood in stools, headaches, vision changes, chest pain, shortness of breath, nausea, vomiting, diarrhea, constipation, abdominal pain, bone pain, weight loss, weakness, numbness, or tingling or changes in coordination or gait. Review of Systems Constitutional: Negative for appetite change, chills, diaphoresis, fatigue, fever and unexpected weight change. HENT: Negative for dental problem, mouth sores, nosebleeds, sneezing, sore throat, tinnitus, trouble swallowing and voice change. Eyes: Negative for photophobia, pain and visual disturbance. Respiratory: Negative for cough, shortness of breath and wheezing. Cardiovascular: Negative for chest pain, palpitations and leg swelling. Gastrointestinal: Negative for abdominal distention, abdominal pain, blood in stool, constipation, diarrhea, nausea and vomiting. Endocrine: Negative for cold intolerance and heat intolerance. Genitourinary: Negative for difficulty urinating, frequency, hematuria and urgency. Musculoskeletal: Positive for arthralgias and neck pain. Negative for back pain, gait problem and myalgias. Skin: Negative for pallor and rash. Allergic/Immunologic: Negative for immunocompromised state. Neurological: Negative for dizziness, syncope, weakness, light-headedness, numbness and headaches. Hematological: Negative for adenopathy. Does not bruise/bleed easily. Psychiatric/Behavioral : Negative for confusion and sleep disturbance. The patient is not nervous/anxious. All other systems reviewed and are negative. 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 Family History Problem Relation Name Age of Onset Cancer Mother Lung cancer Other ([id number]) Father Heart failure Father Diabetes Father Liver cancer Father Bladder Cancer Brother Other ([id number]) Maternal Grandmother Diabetes Maternal Grandmother Diabetes Paternal Grandmother Social History Tobacco Use Smoking status: Former Current packs/day: 0.00 Types: Cigarettes Quit date: 09/06/2011 Years since quittin.8 Smokeless tobacco: Never Substance Use Topics Alcohol use: Yes Alcohol/week: 14.0 standard drinks of alcohol Types: 14 Shots of liquor per week Allergies Allergen Reactions Bactrim [Sulfamethoxazole-Trim ethoprim] Rash Current Outpatient Medications Medication Sig Dispense Refill b complex vitamins capsule Take 1 capsule by mouth daily. cholecalciferol (Vitamin D-3) 25 MCG (1000 UT) capsule Take 1 capsule by mouth in the morning. cyclobenzaprine (Flexeril) 5 MG tablet Take 5 mg by mouth 3 times daily as needed. famotidine (Pepcid) 40 MG tablet Take 40 mg by mouth in the morning. letrozole (Femara) 2.5 MG tablet Take 1 tablet (2.5 mg total) by mouth daily. Take with or without food. 90 tablet 3 losartan (Cozaar) 100 MG tablet Take 100 mg by mouth in the morning. Lumigan 0.01 % ophthalmic solution instill 1 (ONE) DROP IN BOTH EYES EVERY evening metoprolol tartrate (Lopressor) 25 MG tablet Take 25 mg by mouth 2 times daily. Multiple Vitamin (Multi-Vitamin) tablet Take 1 tablet by mouth in the morning. Multiple Vitamins-Minerals (ICAPS AREDS FORMULA PO) twice a day. pimecrolimus (Elidel) 1 % cream as needed. Probiotic Product (PROBIOTIC BLEND PO) Take 1 capsule by mouth daily. RIBOFLAVIN PO Take 2 capsules by mouth daily. triamcinolone (Kenalog) 0.1 % ointment Apply topically twice a day. UNABLE TO FIND Take 2 tablets by mouth daily. Med Name: DataEmail Group No current facility-administered medications for this visit. Blood pressure (!) 142/91, pulse 85, temperature (more content not included)... Normal [facility] NM CARDIAC PERF STRESS/PHARM on 07-03-2024 NM CARDIAC PERF STRESS/PHARM * * *Final Report* * * DATE OF EXAM: Jul 03 2024 3:13PM SAMY 0006 - NM CARDIAC PERF STRESS/PHARM / PROCEDURE REASON: R06.09-LOPEZ (dyspnea on exertion) * * * * Physician Interpretation * * * * PATIENT: Name: MRS. RAHEL RALPH Age: 73 years Gender: F CONCLUSIONS: 1. SPECT Perfusion Study: Normal. 2. There is no scintigraphic evidence for inducible ischemia. 3. No evidence of scarred myocardium. 4. Left ventricle is normal in size. The left ventricle systolic function is normal. 5. Right ventricle is normal in size. 6. This is a low risk scan. Gated Stress IR:3D LVEF % 73 Prior Study Comparison No prior nuclear cardiology exam available for comparison. Nuclear Med Report:1-Day Gated SPECT Myocardial Perfusion with Regadenoson Stress: Myocardial perfusion imaging was performed at rest 30 minutes following the IV injection of the radiotracer. The patient received 0.4 mg of regadenoson, via rapid IV push, immediately followed by radiotracer IV. Gated post stress tomographic imaging was performed 30 to 60 minutes later. See administered radiotracer and doses below. [facility] Date of service: 07/03/2024 1:24:16 PM Ordering Physician: LUIS A VICTOR. Requesting Physician: Indication: Dyspnea Interpreting physician: Juarez Aleman MD Height: 23.37 cm BSA: 0.29 m? Weight: 13.06 kg BMI: 239.2 kg/m? CT Dose Reduction Employed: No. Exam Type: Rest Stress Radiopharm: Tc-99m Tetrofosmin Tc-99m Tetrofosmin Dosage(mCi): 9.2 28.8 Atten Correction: not performed not performed Stress Agent: Regadenoson 0.4mg Supply provided from [facility] Resting Blood Press: 168/98 mmHg Image Quality The overall study imaging quality was deemed to be good. FINDINGS: Left Ventricle Wall Motion: Stress IR:3D - All segments are normal. Rest IR:3D - Gated Stress IR:3D - Reversibility - Stress IR:3D Stress IR:3D Gated Stress IR:3D LVEF: 73 % ED Volume: 33 ml ES Volume: 9 ml TID: 1.07 Perfusion Findings Stress IR:3D - Summed Score=0 All segments demonstrate normal perfusion. Rest IR:3D - Summed Score=0 All segments demonstrate normal perfusion. Stress IR:3D Rest IR:3D Summed Score=0 Summed Score=0 LEFT VENTRICLE The left ventricle is normal in size. Left ventricular systolic function is normal. Right Ventricle The right ventricle is normal in size. Stress Test Findings: There is no scintigraphic evidence for inducible ischemia. There is no evidence of scarring. * * * Final * * * ------ Stress ECG Report: [facility] Date of service: 07/03/2024 1:24:16 PM Ordering physician: LUIS A VICTOR framing specialist: Ira Doll Security Compliance Specialist: Pooja Bell Interpreting physician: Jeevan San MD Patient name: MRS. RAHEL RALPH Age: 73 years Gender: F Height: 23.37 cm BSA: 0.29 m? Weight: 13.06 kg BMI: 239.2 kg/m? Indication: Dyspnea on exertion Stress ECG Conclusion: Conclusion: Normal Stress ECG Summary: The patient's resting heart rate was 107 bpm and blood pressure was 168/98 mmHg. The test was terminated due to end of protocol. Other symptoms during the test included SOB. The maximum heart rate was 126 bpm, which is 86% of the predicted heart rate for age. Peak blood pressure was 180/104 mmHg. The double product achieved was [address]. Medications: Last Used COZAAR METOPROLOL PEPCID Resting ECG: Sinus Tachycardia Symptoms at rest: No symptoms Pharamcologic Protocol: Regadenoson Stress Exercise Table: +-----+---+---+---+ Stage HR SYS WILFRED +-----+---+---+---+ 1 125 180 104 +-----+---+---+---+ 2 126 165 88 +-----+---+---+---+ 3 121 166 98 +-----+---+---+---+ 4 117 148 101 +-----+---+---+---+ 5 120 155 93 +-----+---+---+---+ 6 115 160 93 +-----+---+---+---+ +-----+---+---+---+ HR SYS WILFRED +-----+---+---+---+ Final 126 180 104 +-----+---+---+---+ Stress Observations: Resting HR: 107 bpm Peak HR: 126 bpm (86% MPHR) Resting BP: 168 / 98 mmHg Peak BP: 180 / 104 mmHg Rate Pressure Product (RPP): 51191 Stress Exercise Observations: Reason for test termination: end of protocol, Symptoms during test: Other symptoms during the test included SOB, ST segment and T wave changes: No ST changes and Arrhythmias: No arrhythmias Metabolic Exercise Data Variable: Observed value [Expected Range] HGI: 0.3 [>1.06 bpm/mmHg] * * * Final * * * ------ Stress Senior Commercial Loan Officer Report: [facility] Date of service: 07/03/2024 1:24:16 PM Supervising physician: Jeevan San MD PATIENT: N (more content not included)... Normal [facility] Heart Perfusion W stress and W radionuclide Tori 07-03-2024 * * *Final Report* * * DATE OF EXAM: Jul 03 2024 3:13PM [facility]Y 0006 - NM CARDIAC PERF STRESS/PHARM / PROCEDURE REASON: R06.09-LOPEZ (dyspnea on exertion) * * * * Physician Interpretation * * * * PATIENT: Name: MRS. RAHEL RALPH Age: 73 years Gender: F CONCLUSIONS: 1. SPECT Perfusion Study: Normal. 2. There is no scintigraphic evidence for inducible ischemia. 3. No evidence of scarred myocardium. 4. Left ventricle is normal in size. The left ventricle systolic function is normal. 5. Right ventricle is normal in size. 6. This is a low risk scan. Gated Stress IR:3D LVEF % 73 Prior Study Comparison No prior nuclear cardiology exam available for comparison. Nuclear Med Report:1-Day Gated SPECT Myocardial Perfusion with Regadenoson Stress: Myocardial perfusion imaging was performed at rest 30 minutes following the IV injection of the radiotracer. The patient received 0.4 mg of regadenoson, via rapid IV push, immediately followed by radiotracer IV. Gated post stress tomographic imaging was performed 30 to 60 minutes later. See administered radiotracer and doses below. [facility] Date of service: 07/03/2024 1:24:16 PM Ordering Physician: LUIS A VICTOR. Requesting Physician: Indication: Dyspnea Interpreting physician: Juarez Aleman MD Height: 23.37 cm BSA: 0.29 m Weight: 13.06 kg BMI: 239.2 kg/m CT Dose Reduction Employed: No. Exam Type: Rest Stress Radiopharm: Tc-99m Tetrofosmin Tc-99m Tetrofosmin Dosage(mCi): 9.2 28.8 Atten Correction: not performed not performed Stress Agent: Regadenoson 0.4mg Supply provided from [facility] Resting Blood Press: 168/98 mmHg Image Quality The overall study imaging quality was deemed to be good. FINDINGS: Left Ventricle Wall Motion: Stress IR:3D - All segments are normal. Rest IR:3D - Gated Stress IR:3D - Reversibility - Stress IR:3D Stress IR:3D Gated Stress IR:3D LVEF: 73 % ED Volume: 33 ml ES Volume: 9 ml TID: 1.07 Perfusion Findings Stress IR:3D - Summed Score=0 All segments demonstrate normal perfusion. Rest IR:3D - Summed Score=0 All segments demonstrate normal perfusion. Stress IR:3D Rest IR:3D Summed Score=0 Summed Score=0 LEFT VENTRICLE The left ventricle is normal in size. Left ventricular systolic function is normal. Right Ventricle The right ventricle is normal in size. Stress Test Findings: There is no scintigraphic evidence for inducible ischemia. There is no evidence of scarring. * * * Final * * * ------ Stress ECG Report: [facility] Date of service: 07/03/2024 1:24:16 PM Ordering physician: LUIS A VICTOR framing specialist: Ira Doll Security Compliance Specialist: Pooja Bell Interpreting physician: Jeevan San MD Patient name: MRS. RAHEL RALPH Age: 73 years Gender: F Height: 23.37 cm BSA: 0.29 m Weight: 13.06 kg BMI: 239.2 kg/m Indication: Dyspnea on exertion Stress ECG Conclusion: Conclusion: Normal Stress ECG Summary: The patient's resting heart rate was 107 bpm and blood pressure was 168/98 mmHg. The test was terminated due to end of protocol. Other symptoms during the test included SOB. The maximum heart rate was 126 bpm, which is 86% of the predicted heart rate for age. Peak blood pressure was 180/104 mmHg. The double product achieved was [id number]. Medications: Last Used COZAAR METOPROLOL PEPCID Resting ECG: Sinus Tachycardia Symptoms at rest: No symptoms Pharamcologic Protocol: Regadenoson Stress Exercise Table: +-----+---+---+---+ Stage HR SYS WILFRED +-----+---+---+---+ 1 125 180 104 +-----+---+---+---+ 2 126 165 88 +-----+---+---+---+ 3 121 166 98 +-----+---+---+---+ 4 117 148 101 +-----+---+---+---+ 5 120 155 93 +-----+---+---+---+ 6 115 160 93 +-----+---+---+---+ +-----+---+---+---+ HR SYS WILFRED +-----+---+---+---+ Final 126 180 104 +-----+---+---+---+ Stress Observations: Resting HR: 107 bpm Peak HR: 126 bpm (86% MPHR) Resting BP: 168 / 98 mmHg Peak BP: 180 / 104 mmHg Rate Pressure Product (RPP): 62828 Stress Exercise Observations: Reason for test termination: end of protocol, Symptoms during test: Other symptoms during the test included SOB, ST segment and T wave changes: No ST changes and Arrhythmias: No (more content not included)... [facility] Provider, [facility] - 07/03/2024 * * *Final Report* * * DATE OF EXAM: Jul 03 2024 3:13PM [facility]Y 0006 - NM CARDIAC PERF STRESS/PHARM / PROCEDURE REASON: R06.09-LOPEZ (dyspnea on exertion) * * * * Physician Interpretation * * * * PATIENT: Name: MRS. RAHEL RALPH Age: 73 years Gender: F CONCLUSIONS: 1. SPECT Perfusion Study: Normal. 2. There is no scintigraphic evidence for inducible ischemia. 3. No evidence of scarred myocardium. 4. Left ventricle is normal in size. The left ventricle systolic function is normal. 5. Right ventricle is normal in size. 6. This is a low risk scan. Gated Stress IR:3D LVEF % 73 Prior Study Comparison No prior nuclear cardiology exam available for comparison. Nuclear Med Report:1-Day Gated SPECT Myocardial Perfusion with Regadenoson Stress: Myocardial perfusion imaging was performed at rest 30 minutes following the IV injection of the radiotracer. The patient received 0.4 mg of regadenoson, via rapid IV push, immediately followed by radiotracer IV. Gated post stress tomographic imaging was performed 30 to 60 minutes later. See administered radiotracer and doses below. [facility] Date of service: 07/03/2024 1:24:16 PM Ordering Physician: LUIS A VICTOR. Requesting Physician: Indication: Dyspnea Interpreting physician: Juarez Aleman MD Height: 23.37 cm BSA: 0.29 m Weight: 13.06 kg BMI: 239.2 kg/m CT Dose Reduction Employed: No. Exam Type: Rest Stress Radiopharm: Tc-99m Tetrofosmin Tc-99m Tetrofosmin Dosage(mCi): 9.2 28.8 Atten Correction: not performed not performed Stress Agent: Regadenoson 0.4mg Supply provided from [facility] Resting Blood Press: 168/98 mmHg Image Quality The overall study imaging quality was deemed to be good. FINDINGS: Left Ventricle Wall Motion: Stress IR:3D - All segments are normal. Rest IR:3D - Gated Stress IR:3D - Reversibility - Stress IR:3D Stress IR:3D Gated Stress IR:3D LVEF: 73 % ED Volume: 33 ml ES Volume: 9 ml TID: 1.07 Perfusion Findings Stress IR:3D - Summed Score=0 All segments demonstrate normal perfusion. Rest IR:3D - Summed Score=0 All segments demonstrate normal perfusion. Stress IR:3D Rest IR:3D Summed Score=0 Summed Score=0 LEFT VENTRICLE The left ventricle is normal in size. Left ventricular systolic function is normal. Right Ventricle The right ventricle is normal in size. Stress Test Findings: There is no scintigraphic evidence for inducible ischemia. There is no evidence of scarring. * * * Final * * * ------ Stress ECG Report: [facility] Date of service: 07/03/2024 1:24:16 PM Ordering physician: LUIS A VICTOR framing specialist: Ira Doll Security Compliance Specialist: Pooja Bell Interpreting physician: Jeevan San MD Patient name: MRS. RAHEL RALPH Age: 73 years Gender: F Height: 23.37 cm BSA: 0.29 m Weight: 13.06 kg BMI: 239.2 kg/m Indication: Dyspnea on exertion Stress ECG Conclusion: Conclusion: Normal Stress ECG Summary: The patient's resting heart rate was 107 bpm and blood pressure was 168/98 mmHg. The test was terminated due to end of protocol. Other symptoms during the test included SOB. The maximum heart rate was 126 bpm, which is 86% of the predicted heart rate for age. Peak blood pressure was 180/104 mmHg. The double product achieved was 83[address]. Medications: Last Used COZAAR METOPROLOL PEPCID Resting ECG: Sinus Tachycardia Symptoms at rest: No symptoms Pharamcologic Protocol: Regadenoson Stress Exercise Table: +-----+---+---+---+ Stage HR SYS WILFRED +-----+---+---+---+ 1 125 180 104 +-----+---+---+---+ 2 126 165 88 +-----+---+---+---+ 3 121 166 98 +-----+---+---+---+ 4 117 148 101 +-----+---+---+---+ 5 120 155 93 +-----+---+---+---+ 6 115 160 93 +-----+---+---+---+ +-----+---+---+---+ HR SYS WILFRED +-----+---+---+---+ Final 126 180 104 +-----+---+---+---+ Stress Observations: Resting HR: 107 bpm Peak HR: 126 bpm (86% MPHR) Resting BP: 168 / 98 mmHg Peak BP: 180 / 104 mmHg Rate Pressure Product (RPP): 53478 Stress Exercise Observations: Reason for test termination: end of protocol, Symptoms during test: Other symptoms during the test included SOB, ST segment and T wave changes: No ST changes and Arrhythmias: No arrhythmias Metabolic Exercise Data Variable: Observed value [Expected Range] HGI: 0.3 [>1.06 bpm/mmHg] * * * Final * * * ------ (more content not included)... [facility] Radiology Study observation (narrative) [facility] NM Heart Perfusion W stress and W radionuclide IVOrdered By: [facility] Provider on 07-03-2024 [facility] Velma 06-30-2024 VAN Telephone (CDLBME) RAHEL RALPH ([id number]) 1950 F Date Time Provider Department 06/30/24 POOJA BELL During your visit today, we recorded the following information about you: Pooja Bell RN 06/30/2024 12:52 PM Signed Left message regarding reminder and instructions for stress test on Wednesday. This included where to check in, length of test and no caffeine for 12 hours prior to test. Allergies As of Date: 06/30/2024 Noted Allergy Reaction SULFAMETHOXAZOLE-TRIME THOPRIM 03/18/2023 2 - Rash Date Reviewed: 06/22/2024 Reviewed by: Kelly Rodriguez MA - Fully Assessed Reason for Visit: Reminder Call [[id number]] Prescriptions as of 06/30/2024 - losartan (COZAAR) 100 mg tablet Take 1 tablet by mouth once daily. - metoprolol tartrate, short acting, (LOPRESSOR) 25 mg tablet Take 1 tablet by mouth two times a day. - HYDROcodone-acetaminop hen (NORCO) 5-325 mg per tablet Take 1 tablet by mouth every 6 hours as needed for pain. - famotidine (PEPCID) 40 mg tablet Take 40 mg by mouth once daily. - letrozole (FEMARA) 2.5 mg tablet Take 2.5 mg by mouth once daily. - B2/vits A,C,E/lut/zeaxanth/min (ICAPS ORAL) Take by mouth. - Cholecalciferol, Vitamin D3, 25 mcg (1,000 unit) cap Take 1 capsule by mouth once daily. Vitamin D3 - L.acid/L.casei/B.bif/B .rudolph/FOS (PROBIOTIC BLEND ORAL) Take by mouth. - multivitamin tablet Take 1 tablet by mouth once daily. - MEDICATION, NON-DATABASE Take 2 tablets by mouth once daily. ambrotose AO - LUMIGAN 0.01 % drop ophthalmic drops Use 1 Drop in both eyes daily at bedtime. - vitamin b complex capsule Take 2 capsules by mouth once daily. - esomeprazole magnesium 22.3 mg cpDR Take 1 capsule by mouth once daily. - LECITHIN ORAL Take 2 capsules by mouth once daily. - MILK THISTLE ORAL Take 2 capsules by mouth once daily. 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 No acute osseous abnormality of cervical spine. 2. Multilevel degenerative changes, with up to severe canal stenosis at C6-C7. Moderate canal stenosis at C4-C5, C5-C6, mild canal stenosis at C3-C4, unchanged. Multilevel neural foraminal stenosis as detailed above unchanged. Anatomic Variant: None. Assume 7 cervical vertebrae with counting from the craniocervical junction. Freight Breaker: PSCB Transcribe Date/Time: Jun 08 2024 4:50P Dictated by : ERASTO LUCERO MD This examination was interpreted and the report reviewed and electronically signed by: ERASTO LUCERO MD on Jun 08 2024 4:54PM [facility] RADIOLOGY SYNGO * * *Final Report* * * DATE OF EXAM: Jun 07 2024 4:48PM [facility] 0297 - MRI CERVICAL SPINE WO IVCON / PROCEDURE REASON: G95.9 Disease of spinal cord, unspecified * * * * Physician Interpretation * * * * EXAMINATION: MRI CERVICAL SPINE WO IVCON CLINICAL HISTORY: Spinal canal stenosis. TECHNIQUE: Routine cervical spine MR protocol without gadolinium. MQ: [id number] COMPARISON: CT cervical spine dated 10/10/22 RESULT: Counting reference: Craniocervical junction. Anatomic Variants: None. Localizer images: No additional findings. Alignment: Straightening of cervical lordosis could be positional or due to muscle spasm. Craniocervical junction: Craniocervical junction is normal. Cord: The visualized cord is within normal limits of signal intensity and morphology. Bone marrow signal/fracture: No evidence of pathologic marrow infiltration. No evidence of prior fracture. Moderate to severe multilevel disc height loss. Cervical soft tissues: The paraspinal soft tissues are within normal limits. C2-C3: Small disc osteophyte complex, no canal or neural foraminal stenosis. Moderate RIGHT, mild LEFT facet arthropathy, unchanged. C3-C4: Small disc osteophyte complex, mild canal stenosis. Uncovertebral and facet arthropathy with severe RIGHT, moderate LEFT neural foraminal stenosis, unchanged. C4-C5: Small disc osteophyte complex, ligamentum flavum thickening, moderate canal stenosis, unchanged. Uncovertebral and facet arthropathy with severe RIGHT, moderate to severe LEFT neural foraminal stenosis, unchanged. C5-C6: Small disc osteophyte complex, ligamentum flavum thickening, mild to moderate canal stenosis, unchanged. Uncovertebral and facet arthropathy with moderate RIGHT, severe LEFT neural foraminal stenosis, unchanged. C6-C7: Disc osteophyte complex, severe canal stenosis. Uncovertebral and facet arthropathy with severe bilateral neural foraminal stenosis. C7-T1: Disc osteophyte complex, no canal stenosis, no neural foraminal stenosis. [facility] RADIOLOGY SYNGO Provider, [facility] - 06/08/2024 * * *Final Report* * * DATE OF EXAM: Jun 07 2024 4:48PM [facility] 0297 - MRI CERVICAL SPINE WO IVCON / PROCEDURE REASON: G95.9 Disease of spinal cord, unspecified * * * * Physician Interpretation * * * * EXAMINATION: MRI CERVICAL SPINE WO IVCON CLINICAL HISTORY: Spinal canal stenosis. TECHNIQUE: Routine cervical spine MR protocol without gadolinium. MQ: [id number] COMPARISON: CT cervical spine dated 10/10/22 RESULT: Counting reference: Craniocervical junction. Anatomic Variants: None. Localizer images: No additional findings. Alignment: Straightening of cervical lordosis could be positional or due to muscle spasm. Craniocervical junction: Craniocervical junction is normal. Cord: The visualized cord is within normal limits of signal intensity and morphology. Bone marrow signal/fracture: No evidence of pathologic marrow infiltration. No evidence of prior fracture. Moderate to severe multilevel disc height loss. Cervical soft tissues: The paraspinal soft tissues are within normal limits. C2-C3: Small disc osteophyte complex, no canal or neural foraminal stenosis. Moderate RIGHT, mild LEFT facet arthropathy, unchanged. C3-C4: Small disc osteophyte complex, mild canal stenosis. Uncovertebral and facet arthropathy with severe RIGHT, moderate LEFT neural foraminal stenosis, unchanged. C4-C5: Small disc osteophyte complex, ligamentum flavum thickening, moderate canal stenosis, unchanged. Uncovertebral and facet arthropathy with severe RIGHT, moderate to severe LEFT neural foraminal stenosis, unchanged. C5-C6: Small disc osteophyte complex, ligamentum flavum thickening, mild to moderate canal stenosis, unchanged. Uncovertebral and facet arthropathy with moderate RIGHT, severe LEFT neural foraminal stenosis, unchanged. C6-C7: Disc osteophyte complex, severe canal stenosis. Uncovertebral and facet arthropathy with severe bilateral neural foraminal stenosis. C7-T1: Disc osteophyte complex, no canal stenosis, no neural foraminal stenosis. IMPRESSION IMPRESSION: 1. No acute osseous abnormality of cervical spine. 2. Multilevel degenerative changes, with up to severe canal stenosis at C6-C7. Moderate canal stenosis at C4-C5, C5-C6, mild canal stenosis at C3-C4, unchanged. Multilevel neural foraminal stenosis as detailed above unchanged. Anatomic Variant: None. Assume 7 cervical vertebrae with counting from the craniocervical junction. Freight Breaker: FORREST Transcribe Date/Time: Jun 08 2024 4:50P Dictated by : ERASTO LUCERO MD This examination was interpreted and the report reviewed and electronically signed by: ERASTO LUCERO MD on Jun 08 2024 4:54PM EST [facility] MR Cervical spine WO contras tOrdered By: Ccf Provider on 06-08-2024 [facility] MR Cervical spine WO contras ton 06-07-2024 Radiology Study observation (narrative) [facility] Orthopedic Visit Reporton Orthopedic Visit Report [facility] [address] [place] [id number] OFFICE VISIT Date of Service: 05/19/24 MR#: [id number] Acct: [id number] Name: LOREERAHEL K Rep #: [id number] : 1950 Provider: Dr. Delbert Gibson MD Age/Sex: 73/F Location: [facility] Status: Signed Intake Vital Signs 03/17/24 12:11 Height 5 ft 8 in Weight: 163 lb 6 oz BMI 24.8 Intake Visit Reasons: THORACIC SPINE Accompanied by: Self Is patient in pain?: No Allergies sulfamethoxazole (From Bactrim) Allergy (Severe, Verified 05/19/24 12:23) Rash trimethoprim (From Bactrim) Allergy (Severe, Verified 05/19/24 12:23) Rash Medications ???Medication ???Instructions ???Recorded ???Confirmed ???Type bimatoprost 0.01 % eye drops 1 drp ophthalmic (eye) QPM 07/15/18 05/19/24 History (Lumigan) calcium carbonate (Calcium 500) 500 mg PO BID 07/15/18 05/19/24 History lecithin 1,200 mg capsule 1,200 mg PO DAILY 07/15/18 05/19/24 History milk thistle 150 mg capsule 150 mg PO BID 07/15/18 05/19/24 History vitamin B complex 1 tab PO DAILY 07/15/18 05/19/24 History losartan 50 mg tablet 100 mg PO DAILY 07/26/22 05/19/24 History cyclobenzaprine 5 mg tablet 5 mg PO TID PRN muscle spasm #60 12/28/23 05/19/24 Rx tabs prednisone 20 mg tablet 40 mg (2 x 20 mg) PO DAILY #20 tabs 12/28/23 05/19/24 Rx tramadol 50 mg tablet 50 mg PO BID PRN pain #60 tabs 12/28/23 05/19/24 Rx mupirocin 2 % topical ointment 1 applic topical TID #15 grams 02/16/24 05/19/24 Rx famotidine 40 mg tablet 40 mg PO QDAY 03/17/24 05/19/24 History letrozole 2.5 mg tablet 2.5 mg PO QDAY 03/17/24 05/19/24 History metoprolol tartrate 25 mg tablet 25 mg PO BID 03/17/24 05/19/24 History Have you fallen in the past year?: Yes [facility] Medical History Methicillin resistant Staphylococcus aureus infection, unspecified site History of radiation therapy Lump of right breast oral gum surgery Pneumonia received the pneumovac 23 Discoid lupus Hypertension Spinal stenosis Surgical History H/O lumpectomy gum surgery S/P tubal ligation History of appendectomy History of bunionectomy Social History Smoking Status: Former smoker alcohol intake: current HPI THORACIC SPINE Details: This documentation accurately reflects the service provided and the decisions made by me, Dr. Delbert Gibson MD 05/19/24 1222. Part of today???s visit was documented by Paula LIMON , acting as scribe. RAHEL RALPH is a 73 year old F here today for 2 month follow up. Patient did start her physical therapy and yoga after her appt and says that it has been beneficial. Patient states the only issue going on is she can't walk up stairs with out a railing. Patient states her balance is getting a little bit better. Patient states the pain in her back is getting better, she hasn't had to take much ibuprofen. She has only taken 2 tramadol since December. Patient hasn't done any epidural back injections. Says that she will have some dexterity issues periodically. HPI from 03/17/24: RAHEL RALPH is a 73 year old F here today NEW patient for low back pain. 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 She was the in the [facility] where they did a CT scan. She did bring 2 disc today with an MRI of her thoracic spine and lumbar spine. She states that most of her pain is left sided. She states that she has numbness in her bilateral thighs along with pain. Patient notes that due to the pain she had to stop working which has relieved her pain some because she isn't standing all the time. She states that going up and down steps and prolonged walking increases her pain. Denies previous surgery or injury to her back. She denies injections and physical therapy. She states that at the beginning of the year her chiropractor and a physical therapist worked together with her on her back but her pain wasn't nearly as bad then as it is now. When she was seeing physical therapist they mainly work on strength. She does take Flexeril which does help some and has taken Ibuprofen too but not very often. Rahel has low back pain and also has difficulty walking distances and standing for long peers of time. She also noticed difficulty with balance which seems to be worsening over the last few months. She had a bout of weakness in lower extremities around December which improved after she retired. She feels apprehensive when she is trying to walk over certain steps to reach her garden as she feels a risk for fall. 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 Normal [facility] L/S Spine Min 4 Viewson 03-06 L/S Spine Min 4 Views [facility] Radiology [address] [place] [address] L/S Spine Min 4 Views MR#: [id number] Acct: [id number] Name: RAHEL RALPH Rep #: [id number] : 1950 F 73 From: Andrew Jiang MD PCP: Status: DEP AMB Study: L/S Spine Min 4 Views Date of Exam: 03/17/24 Exam# [id number] Ordering Dr: Delbert Gibson MD [id number] STUDY: X-RAY - LUMBAR SPINE REASON FOR EXAM: Female, 73 years old. lbp -- Please do upright AP lateral flexion-extension TECHNIQUE: 4 view(s) of the lumbar spine were obtained. COMPARISON: None FINDINGS: Normal lumbar lordosis. Mild dextroscoliosis centered at L1. 2 mm retrolisthesis of L2 on L3 and L3 on L4. 15 mm of anterolisthesis of L5 on S1 may be secondary to spondylolisthesis. There is multilevel endplate spondylosis of the lumbar vertebrae. There is multi-level degenerative disc disease with multi-level disc space narrowing. There is multilevel facet hypertrophy. The soft tissue structures are unremarkable. RAD/L/S Spine Min 4 Views IMPRESSION: 1. Suspect L5 spondylolysis with grade 2 spondylolisthesis. 2. Mild dextroscoliosis with diffuse degenerative disc disease. MRI may be useful. Electronically Signed: Andrew Jiang MD at 13:07 EDT , CC: Dr. Delbert Gibson MD Freight Breaker: Signed Normal [facility] Orthopedic Visit Reporton Orthopedic Visit Report [facility] [address] [place] [address] OFFICE VISIT Date of Service: 03/17/24 MR#: [id number] Acct: [id number] Name: RAHEL RALPH Rep #: [id number] : 1950 Provider: Dr. Delbert Gibson MD Age/Sex: 73/F Location: [facility] Status: Signed Intake Vital Signs 02/16/24 17:15 03/17/24 12:11 Height 5 ft 8 in 5 ft 8 in Weight: 163 lb 6 oz BMI 24.8 Intake Visit Reasons: THORACIC SPINE Allergies sulfamethoxazole (From Bactrim) Allergy (Severe, Verified 03/17/24 12:27) Rash trimethoprim (From Bactrim) Allergy (Severe, Verified 03/17/24 12:27) Rash Medications ???Medication ???Instructions ???Recorded ???Confirmed ???Type bimatoprost 0.01 % eye drops 1 drp ophthalmic (eye) QPM 07/15/18 03/17/24 History (Lumigan) calcium carbonate (Calcium 500) 500 mg PO BID 07/15/18 03/17/24 History lecithin 1,200 mg capsule 1,200 mg PO DAILY 07/15/18 03/17/24 History milk thistle 150 mg capsule 150 mg PO BID 07/15/18 03/17/24 History vitamin B complex 1 tab PO DAILY 07/15/18 03/17/24 History losartan 50 mg tablet 100 mg PO DAILY 07/26/22 03/17/24 History cyclobenzaprine 5 mg tablet 5 mg PO TID PRN muscle spasm #60 12/28/23 03/17/24 Rx tabs prednisone 20 mg tablet 40 mg (2 x 20 mg) PO DAILY #20 tabs 12/28/23 03/17/24 Rx tramadol 50 mg tablet 50 mg PO BID PRN pain #60 tabs 12/28/23 03/17/24 Rx mupirocin 2 % topical ointment 1 applic topical TID #15 grams 02/16/24 03/17/24 Rx famotidine 40 mg tablet 40 mg PO QDAY 03/17/24 03/17/24 History letrozole 2.5 mg tablet 2.5 mg PO QDAY 03/17/24 03/17/24 History metoprolol tartrate 25 mg tablet 25 mg PO BID 03/17/24 03/17/24 History Have you fallen in the past year?: Yes [facility] Medical History Discoid lupus History of radiation therapy Hypertension Lump of right breast Methicillin resistant Staphylococcus aureus infection, unspecified site oral gum surgery Pneumonia received the pneumovac 23 Spinal stenosis Surgical History gum surgery H/O lumpectomy History of appendectomy History of bunionectomy S/P tubal ligation Social History Smoking Status: Former smoker alcohol intake: current HPI THORACIC SPINE Details: This documentation accurately reflects the service provided and the decisions made by me, Dr. Delbert Gibson MD 03/17/24 0389. Part of today???s visit was documented by Delma ISLAS, acting as scribe. RAHEL RALPH is a 73 year old F here today NEW patient for low back pain. 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 She was the in the [facility] ER where they did a CT scan. She did bring 2 disc today with an MRI of her thoracic spine and lumbar spine. She states that most of her pain is left sided. She states that she has numbness in her bilateral thighs along with pain. Patient notes that due to the pain she had to stop working which has relieved her pain some because she isn't standing all the time. She states that going up and down steps and prolonged walking increases her pain. Denies previous surgery or injury to her back. She denies injections and physical therapy. She states that at the beginning of the year her chiropractor and a physical therapist worked together with her on her back but her pain wasn't nearly as bad then as it is now. When she was seeing physical therapist they mainly work on strength. She does take Flexeril which does help some and has taken Ibuprofen too but not very often. Rahel has low back pain and also has difficulty walking distances and standing for long peers of time. She also noticed difficulty with balance which seems to be worsening over the last few months. She had a bout of weakness in lower extremities around December which improved after she retired. She feels apprehensive when she is trying to walk over certain steps to reach her garden as she feels a risk for fall. She is a breast cancer survivor and has received radiation and chemotherapy in the past and is on hormonal therapy now. Ortho Exam General General: Yes no acute distress Neurologic: Yes alert and Yes oriented x3 Spine SPINE TESTING CERVICAL THORACIC LUMBAR Musculoskeletal Strength 0=absent - 5=normal Details: Examination the back shows midline and paraspinal tenderness. Neurologic evaluation of upper and lower extremity shows 5 x 5 power normal shows normal sensations in all dermatomes. Demond's is negative. Romberg's is positive. Tandem gait shows imbalance. There is no hyperreflexia in (more content not included)... Normal [facility] Thoracic Spine 3 Viewson Thoracic Spine 3 Views [facility] Radiology [address] [place] [address] Thoracic Spine 3 Views MR#: [id number] Acct: [id number] Name: RAHEL RALPH Rep #: [id number] : 1950 F 73 From: Andrew Jiang MD PCP: Status: DEP AMB Study: Thoracic Spine 3 Views Date of Exam: 03/17/24 Exam# [id number] Ordering Dr: Delbert Gibson MD [id number] STUDY: X-RAY - THORACIC SPINE REASON FOR EXAM: Female, 73 years old. thoracic ddd -- Please do upright AP lateral TECHNIQUE: 3 view(s) of the thoracic spine were obtained. COMPARISON: None. FINDINGS: Normal kyphosis of the thoracic spine. There is no substantial scoliosis. There is multilevel endplate spondylosis of the thoracic vertebrae. There is multilevel disc space narrowing of the thoracic spine. The soft tissue structures are unremarkable. RAD/Thoracic Spine 3 Views IMPRESSION: Degenerative disc disease of the midthoracic spine. Electronically Signed: Andrew Jiang MD at 13:08 EDT , CC: Dr. Delbert Gibson MD Freight Breaker: Signed Normal [facility] Encounteron 023 Hospital Encounter [id number] JanuaryJose 1950 F Date Provider Department Center 09/03/2023 [id number] RAD ON None Family History Problem Relation Age of Onset Cancer Mother Comments: Lung cancer Other Father Heart failure Father Diabetes Father Liver cancer Father Bladder Cancer Brother Other Maternal Grandmother Diabetes Maternal Grandmother Diabetes Paternal Grandmother Family Status - Relation Status Age at Mother Father Brother Alive Maternal Grandmother Paternal Grandmother Level of Service:92682 PA OFFICE/OUTPATIENT ESTABLISHED LOW MDM 20 MIN Reason for Visit and Comments: Follow-up [945482] - Follow up [facility] Nursing Noteon 09-03-2023 Nursing Note Pt here alone for follow up appoint with Dr Gamez Appetite and energy level WNL Denies pain in right breast Up to date with mammogram. She continues to take femara 2.5 mg daily. [facility] Progress Noteon 09-03-2023 Progress Note RADIATION ONCOLOGY FOLLOW UP PATIENT: Rahel Ralph DATE OF SERVICE: 09/03/2023 : 1950 AGE: 72 y.o. 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 STAGE: cTis N0 M0, 0; pTis(DCIS) NX M0, 0 HISTORY OF PRESENT ILLNESS: Ms. Ralph is a 72-year-old female who was noted to have an abnormal screening mammogram on 07/29/21. Biopsy was recommended. Biopsy on 09/25/21 noted at least DCIS, grade 2 with papillary architecture. They noted findings were concerning for an encapsulated papillary carcinoma or a papillary type of 005. It was ER positive at greater than 95%. On 10/09/21 at [facility], Ms. Ralph underwent a right breast lumpectomy with AILEEN meat trimmer. She presented for postoperative radiation which completed 01/16/2022. She started Arimidex on 01/20/2022. This was changed to letrozole in March 2022 due to side effects. INTERVAL SINCE RADIATION: 1 1/2 years ? 12/10/21 - 01/16/22: 50.40/50.40 Gy to the R Breast in 28 fractions of 1.80 Gy using the 3D/Daily IGRT technique with 6 &10 MV over 37 days. INTERVAL HISTORY: The patient returns for follow-up today. She is doing well. She is starting to semiretirement today noting that she will be able working 2 days a week. Appetite and energy level are good. No problems with the breast area. She is on the letrozole daily. No respiratory or cardiac complaints. No swelling in the extremities. She continues her follow-up with her surgeon and medical oncologist. She is following with her workforce management analyst. She is up-to-date with mammography. PAST MEDICAL HISTORY: Past Medical History: Diagnosis Date Reed esophagus Breast cancer (HCC) Discoid lupus Glaucoma Hypertension Macular degeneration PAST SURGICAL HISTORY: Past Surgical History: Procedure Laterality Date APPENDECTOMY N/A 1970 BREAST LUMPECTOMY Right BUNIONECTOMY Bilateral 09/23/2021 COLONOSCOPY 2012 INTRACAPSULAR CATARACT EXTRACTION Right 11/07/2019 TONSILLECTOMY (HISTORICAL) 195 TUBAL LIGATION 1967 ALLERGIES: Allergies as of 09/03/2023 - Reviewed 09/03/2023 Allergen Reaction Noted Bactrim [sulfamethoxazole-trim ethoprim] Rash 09/03/2023 MEDICATIONS: Current Outpatient Medications Medication Sig Dispense Refill b complex vitamins capsule Take 1 capsule by mouth daily. cholecalciferol (Vitamin D-3) 25 MCG (1000 UT) capsule Take 1 capsule by mouth in the morning. cyclobenzaprine (Flexeril) 5 MG tablet Take 5 mg by mouth 3 times daily as needed. famotidine (Pepcid) 40 MG tablet Take 40 mg by mouth in the morning. letrozole (Femara) 2.5 MG tablet Take 1 tablet (2.5 mg total) by mouth daily. Take with or without food. 90 tablet 3 losartan (Cozaar) 100 MG tablet Take 100 mg by mouth in the morning. Lumigan 0.01 % ophthalmic solution instill 1 (ONE) DROP IN BOTH EYES EVERY evening metoprolol tartrate (Lopressor) 25 MG tablet Take 25 mg by mouth 2 times daily. Multiple Vitamin (Multi-Vitamin) tablet Take 1 tablet by mouth in the morning. Multiple Vitamins-Minerals (ICAPS AREDS FORMULA PO) twice a day. pimecrolimus (Elidel) 1 % cream as needed. Probiotic Product (PROBIOTIC BLEND PO) Take 1 capsule by mouth daily. RIBOFLAVIN PO Take 2 capsules by mouth daily. triamcinolone (Kenalog) 0.1 % ointment Apply topically twice a day. UNABLE TO FIND Take 2 tablets by mouth daily. Med Name: Collatrim No current facility-administered medications for this encounter. REVIEW OF SYSTEMS: As above. Pain score 0. KPS: 100 SUMMARY OF SIGNIFICIANT X-RAY/LABORATORY FINDINGS: CT for planning on 11/27/2021 noted the surgical changes in the right breast measuring 5.3 x 3.9 cm. Arthritic changes noted in the spine region. Mammogram on 08/03/2022 noted treatment related changes. Annual follow-up recommended. Mammogram on 08/19/2023 noted treatment related changes. Annual follow-up recommended. Blood count on 08/06/2023 showed a normal white count of 7.08, hemoglobin of 12.4 and platelet count of 240,000. BMP on the same date showed an elevated glucose of 120, sodium decreased to 126, chloride decreased of 85. Repeat of the electrolytes on 08/14/2023 noted a sodium of 132 and a chloride of 93. PHYSICAL EXAM: BP (!) 140/84 Pulse 88 Temp 97.1 ?F (36.2 ?C) Resp 16 Wt 161 lb 9.6 oz (73.3 kg) BMI 26.08 kg/m? /Pain Score: 0 - No pain /Fatigue Assessment: Able to perform daily activities GENERAL: Awake, alert, oriented x3, no anxiety, dressed appropriately, appears of stated age. Ambulates without assistance. Speech pattern fluent. NECK: Symmetric. NODES: No supraclavicular, infraclavicular, or axillary adenopathy bilaterally. BREAST: Asymmetric. Right breast with the postsurgery changes. The changes continue to subside over time. No suspicious mass in either breast. No nipple discharge. Mild hyperpigmented changes are noted in the t (more content not included)... Normal [facility] CNOVon 05-27-2023 CNOV Office Visit (GENKATTYE ) RAHEL RALPH ([id number]) 1950 F Date Time Provider Department 05/27/23 9:15 AM KRISTY MCKNIGHT During your visit today, we recorded the following information about you: Pulse Blood pressure Weight Height 74/minute 148/90 72.9 kg 1.689 m Kristy Mcknight MD 05/28/2023 1:58 PM Signed PROGRESS NOTES PATIENT NAME: Rahel Ralph Assessment ASSESSMENT/PLAN: (D05.11) Ductal carcinoma in situ (DCIS) of right breast (primary encounter diagnosis) Fadia presents in follow-up of her right breast DCIS diagnosed in 2021. There is no evidence for recurrence. Her next mammogram will be due in July. She will follow-up with Dr. Villanueva for clinical exams. She can return to see me as needed. No orders found for this visit on 05/27/23. SUBJECTIVE CHIEF COMPLAINT: Patient presents with: Follow Up: Clinical Breast Exam INTERVAL HISTORY OF PRESENT ILLNESS: Fadia returns in follow-up of her right breast DCIS diagnosed in 2021. She is without complaint. She is tolerating letrozole. She presents for clinical breast exam. HISTORIES: PAST MEDICAL HISTORY Diagnosis Date DCIS (ductal carcinoma in situ) 09/23/2021 right breast Discoid lupus erythematosus Glaucoma meds for prevention. pressure is elevated Hypertension Osteoporosis Plaque psoriasis PAST SURGICAL HISTORY Procedure Laterality Date APPENDECTOMY BREAST LUMPECTOMY HX Right 10/09/2021 BUNIONECTOMY, LAPIDUS-TYPE Bilateral 1970 BX OF BREAST; INCISIONAL Right 09/23/2021 CATARACT EXTRACTION HX Right 11/07/2019 COLONOSCOPY FLX DX W/COLLJ SPEC WHEN PFRMD 2011 Colonoscopy COLONOSCOPY SCREENING 11/01/2020 DERM PATH BIOPSY PC 2017 chest TONSILLECTOMY PRIMARY/SECONDARY Tonsillectomy TUBAL LIGATION, 1967 ALLERGIES: Sulfamethoxazole-Trime thoprim MEDICATIONS: Current Outpatient Medications Medication Sig metoprolol tartrate, short acting, (LOPRESSOR) 25 mg tablet Take 1 tablet by mouth twice daily. famotidine (PEPCID) 40 mg tablet Take 40 mg by mouth once daily. losartan (COZAAR) 100 mg tablet Take 1 tablet by mouth once daily. triamcinolone acetonide (KENALOG) 0.1 % ointment Apply to affected area twice daily. APPLY TO AFFECTED AREA. letrozole (FEMARA) 2.5 mg tablet Take 2.5 mg by mouth once daily. B2/vits A,C,E/lut/zeaxanth/min (ICAPS ORAL) Take by mouth. Cholecalciferol, Vitamin D3, 25 mcg (1,000 unit) cap Take 1 capsule by mouth once daily. Vitamin D3 L.acid/L.casei/B.bif/B .rudolph/FOS (PROBIOTIC BLEND ORAL) Take by mouth. multivitamin tablet Take 1 tablet by mouth once daily. MEDICATION, NON-DATABASE Take 2 tablets by mouth once daily. ambrotose AO LUMIGAN 0.01 % drop ophthalmic drops Use 1 Drop in both eyes daily at bedtime. vitamin b complex capsule Take 2 capsules by mouth once daily. esomeprazole magnesium 22.3 mg cpDR Take 1 capsule by mouth once daily. LECITHIN ORAL Take 2 capsules by mouth once daily. MILK THISTLE ORAL Take 2 capsules by mouth once daily. Current Facility-Administered Medications Medication Dose Route Frequency perflutren lipid microspheres 1.3 mL in NaCl (PF) 0.9% 10 mL injection (DEFINITY) INTRAVENOUS DIRECTED PRN sodium chloride 0.9 % (flush) 10 mL (BD POSIFLUSH) 10 mL INTRAVENOUS DIRECTED PRN FAMILY HISTORY Problem Relation Age of Onset other (Lung CA) Mother Ischemic Heart Disease Father 60 other (DM) Father other (Gallbladder CA) Father other (Liver) Father other (M.I.) Father Cancer Brother bladder - orange enduced Diabetes Maternal Grandmother Coronary Artery Disease Maternal Grandmother other (no colon cancer) Maternal Grandmother other (Diabetes Mellitus) Maternal Grandmother other (DM) Paternal Grandmother Social History Tobacco Use Smoking status: Former Years: 50 Types: Cigarettes Start date: 09/06/1962 Quit date: 12/26/2013 Years since quittin.4 Smokeless tobacco: Never Tobacco comments: date: 1962; Stop date: 2013 e-cigarettes Vapes now (06/01/2019) Vaping Use Vaping Use: current everyday user Substances: Flavoring Substance Use Topics Alcohol use: Yes Alcohol/week: 1.0 standard drink of alcohol Types: 1 Glasses of wine per week Comment: Social - Type: hard liquor; Has 5 drink/day Drug use: No OBJECTIVE PHYSICAL EXAM: BP 148/90 Pulse 74 Ht 5' 6.5 (1.69m) Wt 160 lb 11.2 oz (72.9kg) SpO2 97% BMI 25.55 kg/(m2). General: Well developed, well-nourished, female in no distress HEENT: Normocephalic, atraumatic. Extraocular movements intact. Sclera are nonicteric. Breasts: No dominant masses, no discharge, no skin or nipple change, no palpable axillary adenopathy bilaterally. Postsurgical changes upper inner right breast. Heart: Regular rate and rhythm, no murmur Lungs: Clear to auscultation without wheezes Extremities: No edema Neurologic: Aler (more content not included)... Normal [facility] ECHOon 03-23-2023 [facility] No Panel InformationOrdered By: Kerwin Tejada on 12-26-2022 Nasopharyngeal Culture Staphylococcus aureus [facility] Gram stain for investigation of transfusion reactionOrdered By: Kerwin Tejada on 12-25-2022 Microscopic observation Gram stain Nom (Unsp spec) [facility] Herpes simplex virus (HSV) c ulture with typingOrdered By: Kerwin Tejada on 12-24-2022 HSV identified Org specific cx Nom (Unsp spec) Comment . [facility] Comment on above: NegativeNo Herpes si mplex virus isolated.Performed at: [facility] [id number] Director: David Rabago PhD, Phone: [phone] Christin 11-23-2022 CNRUPERTO Office Visit (TONY ) RAHEL RALPH ([id number]) 1950 F Date Time Provider Department 11/23/22 8:15 AM KRISTY MCKNIGHT During your visit today, we recorded the following information about you: Pulse Blood pressure Weight Height 89/minute 164/100 72.6 kg 1.676 m Kristy Mcknight MD 11/24/2022 12:41 PM Signed PROGRESS NOTES PATIENT NAME: Rahel Ralph Assessment ASSESSMENT/PLAN: (D05.11) Ductal carcinoma in situ (DCIS) of right breast (primary encounter diagnosis) (Z12.31) Screening mammogram for breast cancer Fadia returns in follow-up of her right breast DCIS diagnosed last year. There is no clinical or radiographic evidence for recurrence. She will obtain her next mammogram in July. I will see her in 6 months for a clinical breast exam. She will continue letrozole and follow-up with oncology as scheduled. Office Visit on 11/23/22 KITA SCREENING W BARTOLO SUBJECTIVE CHIEF COMPLAINT: Patient presents with: Follow Up: 6 mo breast exam INTERVAL HISTORY OF PRESENT ILLNESS: Fadia is a 71-year-old female who presents in follow-up of her right breast DCIS diagnosed in early 2021. She was treated with lumpectomy and radiation. She is currently on letrozole. She is without complaint today. HISTORIES: PAST MEDICAL HISTORY Diagnosis Date DCIS (ductal carcinoma in situ) 09/23/2021 right breast Discoid lupus erythematosus Glaucoma meds for prevention. pressure is elevated Hypertension Osteoporosis Plaque psoriasis PAST SURGICAL HISTORY Procedure Laterality Date APPENDECTOMY BREAST LUMPECTOMY HX Right 10/09/2021 BUNIONECTOMY, LAPIDUS-TYPE Bilateral 1970 BX OF BREAST; INCISIONAL Right 09/23/2021 CATARACT EXTRACTION HX Right 11/07/2019 COLONOSCOPY FLX DX W/COLLJ SPEC WHEN PFRMD 2012 Colonoscopy COLONOSCOPY SCREENING 11/01/2020 DERM PATH BIOPSY PC 2017 chest TONSILLECTOMY PRIMARY/SECONDARY Tonsillectomy TUBAL LIGATION, 1967 ALLERGIES: Patient has no known allergies. MEDICATIONS: Current Outpatient Medications Medication Sig triamcinolone acetonide (KENALOG) 0.1 % ointment Apply to affected area twice daily. APPLY TO AFFECTED AREA. losartan (COZAAR) 100 mg tablet Take 1 tablet by mouth once daily. letrozole (FEMARA) 2.5 mg tablet Take 2.5 mg by mouth once daily. B2/vits A,C,E/lut/zeaxanth/min (ICAPS ORAL) Take by mouth. Cholecalciferol, Vitamin D3, 25 mcg (1,000 unit) cap Take 1 capsule by mouth once daily. Vitamin D3 L.acid/L.casei/B.bif/B .rudolph/FOS (PROBIOTIC BLEND ORAL) Take by mouth. multivitamin tablet Take 1 tablet by mouth once daily. MEDICATION, NON-DATABASE Take 2 tablets by mouth once daily. ambrotose AO LUMIGAN 0.01 % drop ophthalmic drops Use 1 Drop in both eyes daily at bedtime. vitamin b complex capsule Take 2 capsules by mouth once daily. esomeprazole magnesium 22.3 mg cpDR Take 1 capsule by mouth once daily. LECITHIN ORAL Take 2 capsules by mouth once daily. MILK THISTLE ORAL Take 2 capsules by mouth once daily. No current facility-administered medications for this visit. FAMILY HISTORY Problem Relation Age of Onset other (Lung CA) Mother Ischemic Heart Disease Father 60 other (DM) Father other (Gallbladder CA) Father other (Liver) Father other (M.I.) Father Cancer Brother bladder - orange enduced Diabetes Maternal Grandmother Coronary Artery Disease Maternal Grandmother other (no colon cancer) Maternal Grandmother other (Diabetes Mellitus) Maternal Grandmother other (DM) Paternal Grandmother Social History Tobacco Use Smoking status: Former Years: 50.00 Types: Cigarettes Start date: 09/06/1962 Quit date: 12/26/2013 Years since quittin.9 Smokeless tobacco: Never Tobacco comments: date: 1962; Stop date: 2013 e-cigarettes Vapes now (06/01/2019) Vaping Use Vaping Use: current everyday user Substances: Flavoring Substance Use Topics Alcohol use: Yes Alcohol/week: 1.0 standard drink Types: 1 Glasses of wine per week Comment: Social - Type: hard liquor; Has 5 drink/day Drug use: No OBJECTIVE PHYSICAL EXAM: BP 164/100 Pulse 89 Ht 5' 6 (1.68m) Wt 160 lb (72.6kg) BMI 25.84 kg/(m2). General: Well developed, well-nourished, female in no distress HEENT: Normocephalic, atraumatic. Extraocular movements intact. Sclera are nonicteric. Breasts: Right upper inner quadrant incision well-healed, small palpable hematoma remaining. No palpable masses of concern. No axillary lymphadenopathy bilaterally. Heart: Regular rate and rhythm, no murmur Lungs: Clear to auscultation without wheezes Rectal: Not evaluated Extremities: No lymphedema Neurologic: Alert, oriented, and appropriate. Neurologic exam is symmetric and nonfocal. DATA: Diagnostic tests reviewed for today's visit: Mammogram 07/28 reviewed: IMPRESSION: BENIGN FINDING There is no mammograph (more content not included)... Normal [facility] KITA DIAG W BARTOLO BILATon - [facility] No Panel Informationon 07-24 [facility] DXA-AXIAL SKELETONon 022 [facility] Radiation Onc F/U Noteon Radiation Onc F/U Note 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 STAGE: cTis N0 M0, 0; pTis(DCIS) NX M0, 0 HISTORY OF PRESENT ILLNESS: Ms. Ralph is a 71-year-old female who was noted to have an abnormal screening mammogram on 07/29/21. Biopsy was recommended. Biopsy on 09/25/21 noted at least DCIS, grade 2 with papillary architecture. They noted findings were concerning for an encapsulated papillary carcinoma or a papillary type of 005. It was ER positive at greater than 95%. On 10/09/21 at [facility], Ms. Ralph underwent a right breast lumpectomy with AILEEN meat trimmer. She presented for postoperative radiation which completed 01/16/2022. She started Arimidex on 01/20/2022. INTERVAL SINCE RADIATION: 5 weeks 12/10/21 - 01/16/22: 50.40/50.40 Gy to the R Breast in 28 fractions of 1.80 Gy using the 3D/Daily IGRT technique with 6 T 10 MV over 37 days. INTERVAL HISTORY: Patient presents today for follow-up. She started Arimidex about 3 to 4 weeks ago and is noting the joint discomfort with it. She denies any symptoms in the breast region. She recently saw Dr. Villanueva and is scheduled to see the surgeon back in the next couple of months. Appetite and energy level are stable. No respiratory or cardiac complaints. She is working. She shaved her head for the [employer]. PAST MEDICAL HISTORY: Macular degeneration and glaucoma. Bilateral hearing loss. She has bilateral hearing aids. Alcohol use. Pulmonary nodules. Reed's esophagus, she notes that endoscopy 1 to 2 years ago did not show further evidence. Discoid lupus. She notes the last skin lesions were at least 10 years ago when she stopped using hair dye. Hypertension. Herniated disc in the lumbosacral region. PAST SURGICAL HISTORY: Left breast biopsy a few years ago that she notes was negative. Appendectomy 1969. Bilateral bunionectomy on 09/23/21. Colonoscopy in 2011. Right cataract removal on 11/07/19. Tonsillectomy in 1956. Tubal ligation 1967. Upper endoscopy 1 to 2 years ago. Right breast biopsy 09/23/21. Right breast lumpectomy on 10/09/21. ALLERGIES: No Known Drug Allergies MEDICATIONS: 1. Arimidex - Tablet Oral Daily 2. B Complex - Capsule Oral Daily 3. calcium - 500 mg PO Daily 4. losartan - 1 Tablet Oral Daily 5. Lumigan - Ophthalmic Every day before sleep 6. Multiple Vitamin - Tablet Oral Daily 7. multivitamin - PO 8. Nexium - Capsule Oral Daily 9. riboflavin (vitamin B2) (bulk) - Other/Miscellaneous Daily 10. Vitamin D3 - 200 mcg PO Daily Medications Last Reconciled by Maddy Lepe RN on 02/19/2022 SUMMARY OF SIGNIFICIANT X-RAY/LABORATORY FINDINGS: CT for planning on 11/27/2021 noted the surgical changes in the right breast measuring 5.3 x 3.9 cm. Arthritic changes noted in the spine region. REVIEW OF SYSTEMS: Pain: 0. - No pain No change. As above. KPS: 100 - Normal; no complaints; no evidence of disease PHYSICAL EXAMINATION: VITALS: Temperature 97 F (02/19/22), Pulse 95 (02/19/22), Respirations 20 (02/19/22), Blood Pressure 132/86 (02/19/22), Oxygen Saturation 96% (02/19/22), Weight 158.8 pounds 02/19/22 GENERAL: Awake, alert, oriented x3, no anxiety, dressed appropriately, appears of stated age. Ambulates without assistance. Speech pattern fluent. NECK: Symmetric. NODES: No supraclavicular, infraclavicular, or right axillary adenopathy. BREAST: Asymmetric. Right breast has protrusion where the prior surgical changes are noted. The postsurgical lumpiness is mobile. The area is smaller than prior. SKIN: In the treatment region is in good condition with mild hyperpigmented changes. LUNGS: Clear to auscultation bilaterally. HEART: Regular in rhythm and rate, S1-S2 noted. MUSCULOSKELETAL: No spine or posterior chest wall tenderness. Good range of motion in the shoulders. IMPRESSION: Ms. Ralph is a 71-year-old lady who presented with an encapsulated papillary carcinoma, without definite invasion, with conventional DCIS of the right breast status post conservative surgery. She has completed surgery and radiation. The area is healing well. She is on the endocrine therapy. She continues to follow with her other physicians. We spoke about the importance of hydration, healthy nutrition and exercise including the arm exercises. We discussed the skin care. PLAN: Return to office in 6 months. Chary Gamez MD, FACRO Electronically signed by: Chary Gamez MD , T: 3:49 PM CC: Javier Ny MD, Rex Villanueva DO, Kristy Mcknight MD [facility] Department of Radiation Oncology is an Accredited Facility of the [employer] ([employer]). This docume (more content not included)... 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 STAGE: cTis N0 M0, 0; pTis(DCIS) NX M0, 0 HISTORY OF PRESENT ILLNESS: Ms. Ralph is a 71-year-old female who was noted to have an abnormal screening mammogram on 07/29/21. Biopsy was recommended. Biopsy on 09/25/21 noted at least DCIS, grade 2 with papillary architecture. They noted findings were concerning for an encapsulated papillary carcinoma or a papillary type of DCIS. It was ER positive at greater than 95%. On 10/09/21 at [facility], Ms. Ralph underwent a right breast lumpectomy with AILEEN meat trimmer. She presented for postoperative radiation. Patient is scheduled to have endocrine therapy following radiation. SUMMARY OF SIGNIFICIANT X-RAY/LABORATORY FINDINGS: CT for planning and on 11/27/2021 noted the right breast surgical changes measuring 5.3 x 3.9 cm. No adenopathy. TREATMENT PLAN: Conventional fractionated daily radiation to the right breast. INTERVAL SINCE RADIATION: 12/10/2021 - 01/16/2022 (37 days) 12/10/21 - 01/16/22: 50.40/50.40 Gy to the R Breast in 28 fractions of 1.80 Gy using the 3D/Daily IGRT technique with 6 T 10 MV. STATUS OF PATIENT AT THE FINISH OF THE TREATMENT: At the finish of therapy, fatigue was minimal. Appetite was stable. She had mild pain in the region. Brisk erythema was noted in the treatment region without moist breakdown. Silvadene was prescribed. She was to use hydrocortisone cream if needed for pruritus. The postsurgical changes were starting to decrease. She continued to have an ecchymotic area in that region but it was starting to improve. DISPOSITION: Discharge instructions on skin care and activity were given. She was instructed to follow-up with her other physicians to her care she is being discharged back to. A 1 month follow-up appointment was made. Chary Gamez MD, FACRO Electronically signed by: Chary Gamez MD , T: 1:18 PM CC: Javier Ny MD, Rex Villanueva DO, Kristy Mcknight MD [facility] Department of Radiation Oncology is an Accredited Facility of the [employer] ([employer]). This document was completed utilizing speech recognition software. Grammatical errors, random word insertions, pronoun errors, and incomplete sentences are an occasional consequence of this system due to software limitations, ambient noise, and hardware issues. Any formal questions or concerns about the content, text or information contained within the body of this dictation should be directly addressed to the provider for clarification. PATIENT: Rahel Ralph : 1950 cc: Kristy Mcknight MD [facility] Phys[facility] [address] [facility] [id number] Rex Villanueva DO [address] [id number] Javier Ny MD [address] [id number] Normal [facility] CT Guidance Radiology Therap yon 11-28-2021 Patient Name: RAHEL RALPH Computed Tomography ACCESSION EXAM DATE/TIME PROCEDURE ORDERING PROVIDER [id number] 11/27/2021 11:[address] Nonbill Guide Baljit GAMEZ M.D., CHARY Tejeda Therapy Reason For Exam (CT Nonbill Guide Rad Therapy) TPCT - RT BREAST CA Report CT guide for radiation therapy: INDICATION: Right breast cancer. TECHNIQUE: Multiple contiguous axial images of the chest and abdomen were obtained with the patient prone. FINDINGS: There is an ovoid 5.3 x 3.9 cm well-circumscribed medial right breast mass. To the extent of visualization the pulmonary parenchyma is satisfactory. There is no mediastinal lymphadenopathy. The liver and spleen are unremarkable. The osseous structures are grossly intact although arthritic changes are seen involving the spine. IMPRESSION: A right breast mass is present as mentioned above. No obvious metastatic lesions are identified on this noncontrast CT. Report Dictated on --- Final --- Dictated: 11/28/2021 3:20 pm Dictating Physician: DO AGUIRRE ALFRED Signed Date and Time: 11/28/2021 3:31 pm Signed by: DO AGUIRRE ALFRED Transcribed Date and Time: 11/28/2021 3:20 [facility] Work Phone: Enzo Aguirre DO - 11/28/2021 Patient Name: RAHEL RALPH Computed Tomography ACCESSION EXAM DATE/TIME PROCEDURE ORDERING PROVIDER [id number] 11/27/2021 11:[address] Nonbill Guide Baljit GAMEZ M.D., CHARY E Therapy Reason For Exam (CT Nonbill Guide Rad Therapy) TPCT - RT BREAST CA Report CT guide for radiation therapy: INDICATION: Right breast cancer. TECHNIQUE: Multiple contiguous axial images of the chest and abdomen were obtained with the patient prone. FINDINGS: There is an ovoid 5.3 x 3.9 cm well-circumscribed medial right breast mass. To the extent of visualization the pulmonary parenchyma is satisfactory. There is no mediastinal lymphadenopathy. The liver and spleen are unremarkable. The osseous structures are grossly intact although arthritic changes are seen involving the spine. IMPRESSION: A right breast mass is present as mentioned above. No obvious metastatic lesions are identified on this noncontrast CT. Report Dictated on --- Final --- Dictated: 11/28/2021 3:20 pm Dictating Physician: DO AGUIRRE ALFRED Signed Date and Time: 11/28/2021 3:31 pm Signed by: DO AGUIRRE ALFRED Transcribed Date and Time: 11/28/2021 3:20 [facility] Work Phone: CT Guidance Radiology Therap yOrdered By: Enzo Aguirre on 11-28-2021 [facility] Work Phone: CT Guidance Radiology Therap yon 11-27-2021 Radiology Study observation (narrative) [facility] Work Phone: CT Nonbill Guide Rad Therapy on 11-27-2021 CT Nonbill Guide Rad Therapy Patient Name: RAHEL RALPH Computed Tomography ACCESSION EXAM DATE/TIME PROCEDURE ORDERING PROVIDER [id number] 11/27/2021 11:[address] Nonbill Guide Rad Ashanti GAMEZ, CHARY E Therapy Reason For Exam (CT Nonbill Guide Rad Therapy) TPCT - RT BREAST CA Report CT guide for radiation therapy: INDICATION: Right breast cancer. TECHNIQUE: Multiple contiguous axial images of the chest and abdomen were obtained with the patient prone. FINDINGS: There is an ovoid 5.3 x 3.9 cm well-circumscribed medial right breast mass. To the extent of visualization the pulmonary parenchyma is satisfactory. There is no mediastinal lymphadenopathy. The liver and spleen are unremarkable. The osseous structures are grossly intact although arthritic changes are seen involving the spine. IMPRESSION: A right breast mass is present as mentioned above. No obvious metastatic lesions are identified on this noncontrast CT. Report Dictated on Final Dictated: 11/28/2021 3:20 pm Dictating Physician: DO AGUIRRE ALFRED Signed Date and Time: 11/28/2021 3:31 pm Signed by: DO AGUIRRE ALFRED Transcribed Date and Time: 11/28/2021 3:20 Normal [facility] Radiation Onc F/U Noteon Radiation Onc F/U Note 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 STAGE: cTis N0 M0, 0; pTis(DCIS) NX M0, 0 HISTORY OF PRESENT ILLNESS: Ms. Ralph is a 70-year-old female who was noted to have an abnormal screening mammogram on 07/29/21. Biopsy was recommended. Biopsy on 09/25/21 noted at least DCIS, grade 2 with papillary architecture. They noted findings were concerning for an encapsulated papillary carcinoma or a papillary type of DCIS. It was ER positive at greater than 95%. On 10/09/21 at [facility], Ms. Ralph underwent a right breast lumpectomy with AILEEN meat trimmer. 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 The DCIS was less than 0.1 mm from the posterior margin and widely negative at the other margins. The specimen marked extended anterior superior margin was negative. The specimen marked extended posterior margin showed atypical ductal hyperplasia. The conventional DCIS was a papillary, micropapillary and cribriform architecture as well as a central focus of encapsulated papillary carcinoma measuring approximately 5 mm. She presents for postoperative radiation. Patient is scheduled to have endocrine therapy following radiation. INTERVAL HISTORY: Patient presents today to check on healing. She notes that the lump is still present but smaller. Skin over top of the area has not changed much. The area is tender. No new health issues otherwise. PAST MEDICAL HISTORY: Macular degeneration and glaucoma. Bilateral hearing loss. She has bilateral hearing aids. Alcohol use. Pulmonary nodules. Reed's esophagus, she notes that endoscopy 1 to 2 years ago did not show further evidence. Discoid lupus. She notes the last skin lesions were at least 10 years ago when she stopped using hair dye. Hypertension. Herniated disc in the lumbosacral region. PAST SURGICAL HISTORY: Left breast biopsy a few years ago that she notes was negative. Appendectomy 1969. Bilateral bunionectomy on 09/23/21. Colonoscopy in 2011. Right cataract removal on 11/07/19. Tonsillectomy in 1956. Tubal ligation 1967. Upper endoscopy 1 to 2 years ago. Right breast biopsy 09/23/21. Right breast lumpectomy on 10/09/21. ALLERGIES: No Known Drug Allergies MEDICATIONS: 1. B Complex - Capsule Oral Daily 2. losartan - 1 Tablet Oral Daily 3. Lumigan - Ophthalmic Every day before sleep 4. Multiple Vitamin - Tablet Oral Daily 5. multivitamin - PO 6. Nexium - Capsule Oral Daily 7. riboflavin (vitamin B2) (bulk) - Other/Miscellaneous Daily Medications Last Reconciled by Gail Waggoner RN on 11/19/2021 SUMMARY OF SIGNIFICIANT X-RAY/LABORATORY FINDINGS: Pathology slides have been reviewed at [facility]. DCIS of grade 1-2 of papillary, micropapillary and cribriform pattern identified. It spanned at least 1.8 cm. On the lumpectomy specimen it focally abutted the inked posterior margin. Further tissue was removed from the posterior margin region and only showed atypical ductal hyperplasia. They noted that the new margin is approximately 10 mm in thickness. REVIEW OF SYSTEMS: Pain: 1. - Between no and mild pain No change. As above. KPS: 90 - Able to carry on normal activity; minor s/s of disease PHYSICAL EXAMINATION: VITALS: Temperature 97.5 F (11/19/21), Pulse 102 (11/19/21), Respirations 18 (11/19/21), Blood Pressure 122/78 (11/19/21) Weight 162 pounds 11/19/21 (Change since 10/31/21: -4.6 pounds) GENERAL: Awake, alert, oriented x3, no anxiety, dressed appropriately, appears of stated age. Ambulates without assistance. Speech pattern fluent. NECK: Symmetric. NODES: No supraclavicular, infraclavicular, or right axillary adenopathy. BREAST: Asymmetric. Right breast has protrusion where the prior surgical changes are noted. The postsurgical lumpiness is mobile and minimally tender. Overall the breast is softer and smaller than on prior exam. There is no sign of infection. Ecchymosis noted over the surgical site. SKIN: At surgical site still has ecchymotic area. The skin is intact. Scar is well-healed. IMPRESSION: Ms. 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 The area has improved since last examined. She wishes to pursue the radiation treatment. Information on skin care and activity are being given. She is being set up for an appointment for the planning session. Pathology has been reviewed at [facility]. It is noted that the margins are negative with the least 1 cm distance. Discussed with (more content not included)... Normal [facility] Surgical Pathologyon 022 Surgical Pathology [id number] [facility] PATHOLOGY AND LABORATORY MEDICINE [address] [place] [id number] FINAL CONSULTATION REPORT NAME: RAHEL RALPH : 1950 70 Y F BILLING NO.: [id number] LOCATION: 1SPO PROCEDURE 11/11/2021 DATE: SURGEON: KRISTY MCKNIGHT M.D. RECEIVED 11/11/2021 DATE: ATTENDING DOC NON-CREDENTIALED REPORT DATE: 11/18/2021 : COPIES TO: DIAGNOSIS: A. BREAST, RIGHT, LUMPECTOMY ([id number], A1 - A24 H&E AND 4 IHC SLIDES; 10/09/21) - DUCTAL CARCINOMA IN SITU, NUCLEAR GRADE I - II, PAPILLARY, MICROPAPILLARY AND CRIBRIFORM PATTERNS WITH ASSOCIATED MICROCALCIFICATIONS SPANNING AT LEAST 18 MM (SEE SYNOPTIC REPORT). -PREVIOUS BIOPSY SITE CHANGES IDENTIFIED. -DUCTAL CARCINOMA IN SITU FOCALLY ABUTS THE INKED POSTERIOR MARGIN (SEE PART C FOR NEW POSTERIOR MARGIN STATUS). B. BREAST, RIGHT, EXTENDED ANTERIOR SUPERIOR MARGIN, EXCISION ([id number], B1- B5; 10/09/21) - BENIGN BREAST TISSUE. C. BREAST, RIGHT, NEW POSTERIOR MARGIN, EXCISION ([id number], C1- C3 H&E AND 3 IHC SLIDES; 10/09/21) - ATYPICAL DUCTAL HYPERPLASIA. Comment: Immunohistochemical stains for ER and CK5/6 performed at the outside institution are available for our review. DCIS shows strong ER expression and absent CK5/6, supporting the diagnosis. They focally abut the cauterized and inked posterior margin. Scant neoplastic foci clinging to the previous biopsy site suggestive but not definitive of residual encapsulated lesion is noted with predominatly conventional DCIS in the background (previous biopsy slides are not available for review). There are multiple irregular nests adjacent to and within the previous biopsy site on blocks A8, A10 and A11, concerning for invasive carcinoma. However, as they are mostly associated with the biopsy scar tissue, these irregular nests are favored to represent entrapped/displaced tissue from the previous biopsy procedure. With regards to margins, in the excision specimen DCIS is present at the cauterized inked posterior margin. However, in the separately received new posterior margin (part C), only focal ADH is present <1 mm from the ink. The new margin is approximately 10mm in thickness (per gross description). Therefore, the true and final margin is considered negative for DCIS. Dr. Izaguirre has reviewed this case and concurs with the above interpretation. SPECIMEN Procedure: Excision (less than total mastectomy) Specimen Laterality: Right TUMOR Histologic Type: Ductal carcinoma in situ Size (Extent) of DCIS: Estimated size (extent) of DCIS is at least (Millimeters) - 18 mm (per outside report) Architectural Patterns: Cribriform, Micropapillary, Papillary Nuclear Grade: Grade II (intermediate) Necrosis: Not identified Microcalcifications: Present in DCIS MARGINS Margin Status: All margins negative for DCIS Distance from DCIS to Closest Margin: At least - 10 mm (per gross measurement of part C) Closest Margin(s) to DCIS: Posterior (new margin, part C) REGIONAL LYMPH NODES Regional Lymph Node Status: Not applicable (no regional lymph nodes submitted or found) PATHOLOGIC STAGE CLASSIFICATION (pTNM, AJCC 8th Edition) Reporting of pT, pN, and (when applicable) pM categories is based on information available to the pathologist at the time the report is issued. As per the AJCC (Chapter 1, 8th Ed.) it is the managing physician's responsibility to establish the final pathologic stage based upon all pertinent information, including but potentially not limited to this pathology report. pT Category: pTis (DCIS) pN Category: pN not assigned (no nodes submitted or found) Breast Biomarker Testing Performed on Previous Biopsy: Estrogen Receptor (ER) Status: Positive Percentage of Cells with Nuclear Positivity: 91-100% PROJECT MANAGER RETAIL TUMOR BLOCK(S): A11 ENID/SNEHAK Signature> Rosey DUONG, PhD Printed November 18, 2021 at 5:53:18 PM CLINICAL INFORMATION: 44 slides labeled [id number]; A) Right breast lumpectomy. B) Right breast, extended anterior superior margin. C) Right breast, extended posterior margin. SPECIMEN: SLIDE(S) GROSS DESCRIPTION: Received are 44 glass slides labeled [id number] and accompanying pathology reports from [facility] for consult at the request of Chary Gamez M.D. ENID/KMS1 Disclaimer: The following statement applies to all immunohistochemistry, in situ hybridization, molecular studies, and immunofluorescence testing. The use of one or more reagents in the above tests is regulated as an analyte spe (more content not included)... 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 STAGE: cTis N0 M0, 0; pTis(DCIS) NX M0, 0 HISTORY OF PRESENT ILLNESS: Ms. Ralph is a 70-year-old female who was noted to have an abnormal screening mammogram on 07/29/21. A 0.6 cm oval asymmetry was seen in the right lower inner aspect of the breast. There were no significant other masses or calcifications. Ultrasound of the right breast on 09/16/21. A 0.7 cm lesion was seen in the right breast at the 2 o'clock position corresponding to the mammography findings. Biopsy was recommended. Biopsy on 09/25/21 noted at least DCIS, grade 2 with papillary architecture. They noted findings were concerning for an encapsulated papillary carcinoma or a papillary type of DCIS. It was ER positive at greater than 95%. On 10/09/21 at [facility], Ms. Ralph underwent a right breast lumpectomy with AILEEN meat trimmer. 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 The DCIS was less than 0.1 mm from the posterior margin and widely negative at the other margins. The specimen marked extended anterior superior margin was negative. The specimen marked extended posterior margin showed atypical ductal hyperplasia. The conventional DCIS was a papillary, micropapillary and cribriform architecture as well as a central focus of encapsulated papillary carcinoma measuring approximately 5 mm. Ms. Ralph notes that things continue to heal. She has ecchymosis and hematoma/seroma in the region. Mild tenderness. 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 She met with Dr. Villanueva and they discussed endocrine therapy following radiation. She is here today to discuss the radiation therapy. PAST MEDICAL HISTORY: Macular degeneration and glaucoma. Bilateral hearing loss. She has bilateral hearing aids. Alcohol use. Pulmonary nodules. Reed's esophagus, she notes that endoscopy 1 to 2 years ago did not show further evidence. Discoid lupus. She notes the last skin lesions were at least 10 years ago when she stopped using hair dye. Hypertension. Herniated disc in the lumbosacral region. PAST SURGICAL HISTORY: Left breast biopsy a few years ago that she notes was negative. Appendectomy 1969. Bilateral bunionectomy on 09/23/21. Colonoscopy in 2011. Right cataract removal on 11/07/19. Tonsillectomy in 1956. Tubal ligation 1967. Upper endoscopy 1 to 2 years ago. Right breast biopsy 09/23/21. Right breast lumpectomy on 10/09/21. GYNECOLOGICAL HISTORY: G1 Ab1. Menstrual cycle stopped at age 37. Hormone replacement about 10 years. SOCIAL HISTORY: . 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 She quit smoking 2011 and prior to that smoked about a pack per day for 38 years. She notes daily use of vodka with seltzer. She utilizes vape liquid without nicotine for the past 5 years. FAMILY HISTORY: Paternal grandmother breast cancer treated with bilateral mastectomy. Father heart disease and gallbladder/liver cancer. Mother lung cancer. Paternal grandfather throat cancer. Brother bladder cancer, agent orange exposure. ALLERGIES: No Known Drug Allergies MEDICATIONS: 1. B Complex - Capsule Oral Daily 2. losartan - 0.5 Tablet Oral Daily 3. Lumigan - Ophthalmic Every day before sleep 4. Multiple Vitamin - Tablet Oral Daily 5. multivitamin - PO 6. Nexium - Capsule Oral Daily 7. riboflavin (vitamin B2) (bulk) - Other/Miscellaneous Daily Medications Last Reconciled by Gail Waggoner RN on 10/31/2021 SUMMARY OF SIGNIFICIANT X-RAY/LABORATORY FINDINGS: Radiology as per history. Blood work on 10/04/21 shows a normal white count of 4.1, hemoglobin of 12 and platelet count 209,000. CMP he on the same date was within normal limits including the liver enzyme elements. Vitamin D level was normal at 54.7 on 10/04/21. REVIEW OF SYSTEMS: Pain: 1. - Between no and mild pain Constitutional: Good appetite. Good energy level. No fever, chills, sweats, or headaches. Vision: Stable. Wears glasses. Followed for right macular degeneration and glaucoma. Ears Nose Throat and Mouth: Has hearing loss. Wears bilateral hearing aids. No mouth, throat, or swallowing issues. Respiratory: No shortness of breath at rest. No dyspnea on exertion. No cough. No paroxysmal nocturnal dyspnea or orthopnea. Not on oxygen. Cardiovascular: No chest pain. No heart racing. No palpitations. Gastrointestinal: No nausea, vomiting, diarrhea, or constipation. Reflux stable with medication. Genitourinary: No dysur (more content not included)... Normal [facility] MG Breast - right Diagnostic for implanton 10-02-2021 * * *Final Report* * * DATE OF EXAM: Oct 02 2021 3:49PM [facility] 0626 - [facility] DIAGNOSTIC RT / PROCEDURE REASON: Ductal carcinoma in situ (DCIS) of right breast * * * * Physician Interpretation * * * * RESULT: #[id number] - [facility] US LOC BREAST RT #[id number] - [facility] DIAGNOSTIC RT ULTRASOUND GUIDED INFRARED ACTIVATED ELECTROMAGNETIC REFLECTOR DEVICE PLACEMENT RIGHT BREAST WITH POST DIGITAL MAMMOGRAPHIC AND ULTRASOUND IMAGIN10/02/2021 HISTORY: The patient presents for right ultrasound guided reflector placement as recommended from recent imaging study dated (09/23/21). Pre and post localization hard copy sonographic images were obtained. The patient presents for right ultrasound guided reflector placement as recommended from recent imaging study dated (09/23/21). Pre and post localization hard copy sonographic images were obtained. PATIENT CONSENT: A time out was performed immediately prior to procedure start with the radiology team, correctly identifying the patient name, date of , procedure, anatomy (including marking of site and side), patient position, relevant diagnostic and radiology test results, safety precautions, and procedure-specific equipment needs. The procedure was explained to the patient including the risks, benefits and alternatives. Medications and allergies were also reviewed. The risks, including but not limited to infection and bleeding, were reviewed by the performing physician and the patient agreed to undergo the procedure. The radiologist and technologist were present throughout the entire procedure. Audible Time Out Time:1529 Procedure Start Time:1530 Procedure Stop Time:1535 . Correlation is made to exam dated: 09/23/2021 ultrasound [facility]. An infrared activated electromagnetic reflector device placement using ultrasound guidance was performed for the concerning mass located in the right breast at 2 o'clock middle depth 5 cm from the nipple. This was described on the previous ultrasound report. The skin was prepped in the usual manner. Local anesthetic was administered to the access site. A skin sonia was made in the breast. The localization was approached from the caudocranial aspect. A location device was inserted adjacent to the marker through an introducer device under ultrasound guidance. A sterile dressing was applied to the access site. Post placement digital mammographic and ultrasound imaging demonstrates location device traverses adjacent to the marker. Clip placement/activation was verified with Cso Check following the procedure. DIVISION OF RADIOLOGY Provider, [facility] Marguerite [facility] - 10/02/2021 * * *Final Report* * * DATE OF EXAM: Oct 02 2021 3:49PM [facility] 0626 - [facility] DIAGNOSTIC RT / PROCEDURE REASON: Ductal carcinoma in situ (DCIS) of right breast * * * * Physician Interpretation * * * * RESULT: #[id number] - [facility] US LOC BREAST RT #[id number] - [facility] DIAGNOSTIC RT ULTRASOUND GUIDED INFRARED ACTIVATED ELECTROMAGNETIC REFLECTOR DEVICE PLACEMENT RIGHT BREAST WITH POST DIGITAL MAMMOGRAPHIC AND ULTRASOUND IMAGIN10/02/2021 HISTORY: The patient presents for right ultrasound guided reflector placement as recommended from recent imaging study dated (09/23/21). Pre and post localization hard copy sonographic images were obtained. The patient presents for right ultrasound guided reflector placement as recommended from recent imaging study dated (09/23/21). Pre and post localization hard copy sonographic images were obtained. PATIENT CONSENT: A time out was performed immediately prior to procedure start with the radiology team, correctly identifying the patient name, date of , procedure, anatomy (including marking of site and side), patient position, relevant diagnostic and radiology test results, safety precautions, and procedure-specific equipment needs. The procedure was explained to the patient including the risks, benefits and alternatives. Medications and allergies were also reviewed. The risks, including but not limited to infection and bleeding, were reviewed by the performing physician and the patient agreed to undergo the procedure. The radiologist and technologist were present throughout the entire procedure. Audible Time Out Time:1529 Procedure Start Time:1530 Procedure Stop Time:1535 . Correlation is made to exam dated: 09/23/2021 ultrasound biopsy - [facility]. An infrared activated electromagnetic reflector device placement using ultrasound guidance was performed for the concerning mass located in the right breast at 2 o'clock middle depth 5 cm from the nipple. This was described on the previous ultrasound report. The skin was prepped in the usual manner. Local anesthetic was administered to the access site. A skin sonia was made in the breast. The localization was approached from the caudocranial aspect. A location device was inserted adjacent to the marker through an introducer device under ultrasound guidance. A sterile dressing was applied to the access site. Post placement digital mammographic and ultrasound imaging demonstrates location device traverses adjacent to the marker. Clip placement/activation was verified with Cso Check following the procedure. IMPRESSION IMPRESSION: INFRARED ACTIVATED ELECTROMAGNETIC REFLECTOR DEVICE PLACEMENT Infrared activated electromagnetic reflector device placement for the mass in the right breast at 2 o'clock middle depth 5 cm from the nipple was successful with no apparent post procedure complications. A specimen radiograph is recommended. The specimen radiograph should include the Cso reflector and the hydromark open coil shaped clip. Follow-up with ACR/NCCN guidelines. Crissy willis/claire:10/02/2021 17:04:32 Railroad Brakeman(s): RT Addie(R)(M), [facility] Multiple national specialty organizations have released breast cancer screening guidelines for women at average risk for developing breast cancer - guidelines that are based on both evidence and opinion, yet differ on when to start and how often to screen for breast cancer. With representation from Breast Imaging, Internal Medicine, Women's Health, Family Medicine, and Medical/Surgical Oncology, the [facility] has carefully reviewed the data and reached the following consensus: 1) All women should engage in shared decision-making with their providers to decide when to start and how often to screen; 2) All women should have the opportunity to start screening mammography at age 40; 3) For women ages 45-55, we recommend annual screening mammograms; 4) For women ages 55 and over, we support both the transition from an annual to a biennial interval if this aligns more with patient's values and preferences, or continuation with annual screening; 5) All women should discuss with their providers when to stop screening mammograms. Freight Breaker: Claire Transcribe Date/Time: Oct 02 2021 3:37P Dictated by: CRISSY ELDER MD This examination was interpreted and the report reviewed and electronically signed by: CRISSY ELDER MD on Oct 02 2021 5:04PM EST [facility] Radiology Study observation (narrative) [facility] No Panel Informationon 10-02 IMPRESSION: INFRARED ACTIVATED ELECTROMAGNETIC REFLECTOR DEVICE PLACEMENT Infrared activated electromagnetic reflector device placement for the mass in the right breast at 2 o'clock middle depth 5 cm from the nipple was successful with no apparent post procedure complications. A specimen radiograph is recommended. The specimen radiograph should include the Cso reflector and the hydromark open coil shaped clip. Follow-up with ACR/NCCN guidelines. Crissy willis/claire:10/02/2021 17:04:32 Railroad Brakeman(s): Katelyn Somers RT(R)(M), [facility] Multiple national specialty organizations have released breast cancer screening guidelines for women at average risk for developing breast cancer - guidelines that are based on both evidence and opinion, yet differ on when to start and how often to screen for breast cancer. With representation from Breast Imaging, Internal Medicine, Women's Health, Family Medicine, and Medical/Surgical Oncology, the [facility] has carefully reviewed the data and reached the following consensus: 1) All women should engage in shared decision-making with their providers to decide when to start and how often to screen; 2) All women should have the opportunity to start screening mammography at age 40; 3) For women ages 45-55, we recommend annual screening mammograms; 4) For women ages 55 and over, we support both the transition from an annual to a biennial interval if this aligns more with patient's values and preferences, or continuation with annual screening; 5) All women should discuss with their providers when to stop screening mammograms. Freight Breaker: Claire Transcribe Date/Time: Oct 02 2021 3:37P Dictated by: CRISSY ELDER MD This examination was interpreted and the report reviewed and electronically signed by: CRISSY ELDER MD on Oct 02 2021 5:04PM [facility] DIVISION OF RADIOLOGY No Panel InformationOrdered By: [facility] Provider on 10-02-2021 [facility] US Guidance for localization of Breast - righton 10-02-2021 * * *Final Report* * * DATE OF EXAM: Oct 02 2021 3:49PM [facility] 0600 - [facility] US LOC BREAST RT / PROCEDURE REASON: Ductal carcinoma in situ (DCIS) of right breast * * * * Physician Interpretation * * * * RESULT: #[id number] - [facility] US LOC BREAST RT #[id number] - [facility] DIAGNOSTIC RT ULTRASOUND GUIDED INFRARED ACTIVATED ELECTROMAGNETIC REFLECTOR DEVICE PLACEMENT RIGHT BREAST WITH POST DIGITAL MAMMOGRAPHIC AND ULTRASOUND IMAGIN10/02/2021 HISTORY: The patient presents for right ultrasound guided reflector placement as recommended from recent imaging study dated (09/23/21). Pre and post localization hard copy sonographic images were obtained. The patient presents for right ultrasound guided reflector placement as recommended from recent imaging study dated (09/23/21). Pre and post localization hard copy sonographic images were obtained. PATIENT CONSENT: A time out was performed immediately prior to procedure start with the radiology team, correctly identifying the patient name, date of , procedure, anatomy (including marking of site and side), patient position, relevant diagnostic and radiology test results, safety precautions, and procedure-specific equipment needs. The procedure was explained to the patient including the risks, benefits and alternatives. Medications and allergies were also reviewed. The risks, including but not limited to infection and bleeding, were reviewed by the performing physician and the patient agreed to undergo the procedure. The radiologist and technologist were present throughout the entire procedure. Audible Time Out Time:1529 Procedure Start Time:1530 Procedure Stop Time:1535 . Correlation is made to exam dated: 09/23/2021 ultrasound biopsy [facility]. An infrared activated electromagnetic reflector device placement using ultrasound guidance was performed for the concerning mass located in the right breast at 2 o'clock middle depth 5 cm from the nipple. This was described on the previous ultrasound report. The skin was prepped in the usual manner. Local anesthetic was administered to the access site. A skin sonia was made in the breast. The localization was approached from the caudocranial aspect. A location device was inserted adjacent to the marker through an introducer device under ultrasound guidance. A sterile dressing was applied to the access site. Post placement digital mammographic and ultrasound imaging demonstrates location device traverses adjacent to the marker. Clip placement/activation was verified with Cso Check following the procedure. 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 Pre and post localization hard copy sonographic images were obtained. The patient presents for right ultrasound guided reflector placement as recommended from recent imaging study dated (09/23/21). Pre and post localization hard copy sonographic images were obtained. PATIENT CONSENT: A time out was performed immediately prior to procedure start with the radiology team, correctly identifying the patient name, date of , procedure, anatomy (including marking of site and side), patient position, relevant diagnostic and radiology test results, safety precautions, and procedure-specific equipment needs. The procedure was explained to the patient including the risks, benefits and alternatives. Medications and allergies were also reviewed. The risks, including but not limited to infection and bleeding, were reviewed by the performing physician and the patient agreed to undergo the procedure. The radiologist and technologist were present throughout the entire procedure. Audible Time Out Time:1529 Procedure Start Time:1530 Procedure Stop Time:1535 . Correlation is made to exam dated: 09/23/2021 ultrasound biopsy [facility]. An infrared activated electromagnetic reflector device placement using ultrasound guidance was performed for the concerning mass located in the right breast at 2 o'clock middle depth 5 cm from the nipple. This was described on the previous ultrasound report. The skin was prepped in the usual manner. Local anesthetic was administered to the access site. A skin sonia was made in the breast. The localization was approached from the caudocranial aspect. A location device was inserted adjacent to the marker through an introducer device under ultrasound guidance. A sterile dressing was applied to the access site. Post placement digital mammographic and ultrasound imaging demonstrates location device traverses adjacent to the marker. Clip placement/activation was verified with Cso Check following the procedure. IMPRESSION IMPRESSION: INFRARED ACTIVATED ELECTROMAGNETIC REFLECTOR DEVICE PLACEMENT Infrared activated electromagnetic reflector device placement for the mass in the right breast at 2 o'clock middle depth 5 cm from the nipple was successful with no apparent post procedure complications. A specimen radiograph is recommended. The specimen radiograph should include the Cso reflector and the hydromark open coil shaped clip. Follow-up with ACR/NCCN guidelines. Crissy Elder M.D. alba/claire:10/02/2021 17:04:32 Railroad Brakeman(s): RT Addie(R)(M), [facility] Multiple national specialty organizations have released breast cancer screening guidelines for women at average risk for developing breast cancer - guidelines that are based on both evidence and opinion, yet differ on when to start and how often to screen for breast cancer. With representation from Breast Imaging, Internal Medicine, Women's Health, Family Medicine, and Medical/Surgical Oncology, the [facility] has carefully reviewed the data and reached the following consensus: 1) All women should engage in shared decision-making with their providers to decide when to start and how often to screen; 2) All women should have the opportunity to start screening mammography at age 40; 3) For women ages 45-55, we recommend annual screening mammograms; 4) For women ages 55 and over, we support both the transition from an annual to a biennial interval if this aligns more with patient's values and preferences, or continuation with annual screening; 5) All women should discuss with their providers when to stop screening mammograms. Freight Breaker: Claire Transcribe Date/Time: Oct 02 2021 3:37P Dictated by: CRISSY ELDER MD This examination was interpreted and the report reviewed and electronically signed by: CRISSY ELDER MD on Oct 02 2021 5:04PM [facility] Radiology Study observation (narrative) [facility] SCREENINGon 07-24-2020 [facility] SCREENING Final Report DATE OF EXAM: Jul 24 2020 1:10PM [facility] 0581 - [facility] SCREENING / PROCEDURE REASON: Encounter for screening mammogram for malignant neoplasm of breast Physician Interpretation #[id number] - [facility] SCREENING BILATERAL DIGITAL SCREENING MAMMOGRAM WITH CAD: 07/24/2020 HISTORY: / Screening Mammogram-Patient reports NO symptoms. RESULT: TECHNIQUE: The study was acquired using full field digital technology and interpreted from soft copy. Current study was also evaluated with a Computer Aided Detection (CAD). Comparison is made to exams dated: 07/18/2019 mammogram, 07/13/2018 mammogram, 06/22/2017 mammogram, 05/26/2016 mammogram, 04/23/2015 mammogram, and 05/03/2014 [facility]. The tissue of both breasts is extremely dense, which lowers the sensitivity of mammography. No significant masses, calcifications, or other findings are seen in either breast. There has been no significant interval change. IMPRESSION: NEGATIVE There is no mammographic evidence of malignancy. A 1 year screening mammogram is recommended. Adeel iglesias/claire:07/24/2020 14:17:23 Railroad Brakeman(s): Madelaine Gabriel (Radha)(M), [facility] letter sent: Normal over 40 Mammogram BI-RADS: 1 Negative Multiple national specialty organizations have released breast cancer screening guidelines for women at average risk for developing breast cancer - guidelines that are based on both evidence and opinion, yet differ on when to start and how often to screen for breast cancer. With representation from Breast Imaging, Internal Medicine, Women's Health, Family Medicine, and Medical/Surgical Oncology, the [facility] has carefully reviewed the data and reached the following consensus: 1) All women should engage in shared decision-making with their providers to decide when to start and how often to screen; 2) All women should have the opportunity to start screening mammography at age 40; 3) For women ages 45-55, we recommend annual screening mammograms; 4) For women ages 55 and over, we support both the transition from an annual to a biennial interval if this aligns more with patient's values and preferences, or continuation with annual screening; 5) All women should discuss with their providers when to stop screening mammograms. Freight Breaker: Claire Transcribe Date/Time: Jul 24 2020 12:54P Dictated by : ADEEL DESAI MD This examination was interpreted and the report reviewed and electronically signed by: ADEEL DESAI MD on Jul 24 2020 2:17PM EST Normal [facility] SARS CoV 2 RNA(COVID 19), QU ALITATIVE [facility] 07-18-2020 SARS CoV 2 RNA NOT DETECTED Normal NOT DETECTED [facility] Comment on above: Result Comment: A Not Detected (negative) test result for this test means that SARS- CoV-2 RNA was not present in the specimen above the limit of detection. A negative result does not rule out the possibility of COVID-19 and should not be used as the sole basis for treatment or patient management decisions. If COVID-19 is still suspected, based on exposure history together with other clinical findings, re-testing should be considered in consultation with public health authorities. Laboratory test results should always be considered in the context of clinical observations and epidemiological data in making a final diagnosis and patient management decisions. Please review the Fact Sheets and FDA authorized labeling available for health care providers and patients using the following websites: https://www.[employer] [place]/home/Covid-19/HCP/NAAT/fact-sh eet2 https://www.[employer] [place]/home/Covid-19/Patients/NAAT/ fact-sheet2 This test has been authorized by the FDA under an Emergency Use Authorization (EUA) for use by authorized laboratories. Due to the current public health emergency, [employer] is receiving a high volume of samples from a wide variety of swabs and media for COVID-19 testing. In order to serve patients during this public health crisis, samples from appropriate clinical sources are being tested. Negative test results derived from specimens received in non-commercially manufactured viral collection and transport media, or in media and sample collection kits not yet authorized by FDA for COVID-19 testing should be cautiously evaluated and the patient potentially subjected to extra precautions such as additional clinical monitoring, including collection of an additional specimen. Methodology: Nucleic Acid Amplification Test (NAAT) includes RT-PCR or TMA Additional information about COVID-19 can be found at the [employer] website: www.[employer] [place]/Covid19. Performed By: #### [id number] #### [facility] [id number] [address] [address] Input Output Clerk: Jesus Ruiz MD SURGICAL PATHOLOGYon 020 SURGICAL PATHOLOGY Specimen #: [id number] Submitting Physician: ENID PHOENIX M.D. FINAL DIAGNOSIS A. Skin, left lateral abdomen, shave biopsy - Benign lichenoid keratosis. NEENA/RYAN/ronni 05/08/2020 Eugenie Dominique M.D., Ph.D. (Electronic Signature) _ SPECIMEN SUBMITTED A: SKIN, LEFT LATERAL ABDOMEN, SHAVE BIOPSY CLINICAL DATA SPECIMEN LABEL = SHAVE BX SPECIMEN SOURCE = A) LEFT LATERAL ABDOMEN MORPHOLOGY = PSORIASIFORM PATCH PROCEDURE NAME = BIOPSY BY SHAVE METHOD CLINICAL INFO = MORPHOLOGY: PSORIASIFORM PATCH;DDX: BASAL CELL CARCINOMA;LOCATION: LEFT LATERAL ABDOMEN; ABDOMEN; SPECIMEN SITE: SITE A PSORIASIFORM PATCH SPECIMEN: 1 - SHAVE BIOPSY - SKSBX SPECIFIC SITE OR ADDITIONAL DESCRIPTION: LEFT LATERAL ABDOMEN PSORIASIFORM PATCH GROSS DESCRIPTION A. Received in formalin is a 0.8 x 0.5 x 0.2 cm shave of skin. The specimen is bisected. Totally submitted in formalin in one cassette. Gross examination performed at [facility], [address] [place] [address] 05/07/2020 10:44:12 PM Date of Report: 05/08/2020 Date of Procedure: 05/07/2020 Date of Receipt: 05/07/2020 Submitted by: ENID PHOENIX M.D. Location: Diagnostic interpretation performed at [place] [address]. [place] Number: [id number] Normal [facility] Reference Lab Comment on above: Performed By: #### S #### See report for performing lab information. Vital Signs Date Time Vital Sign Value Performing Clinician Facility 06-05-2025 10:01-0400 Body height 170 cm Elvis Pacheco MD Work Phone: [facility] 06-05-2025 10:01-0400 Body height 170.18 cm Elvis Pacheco MD Work Phone: [facility] 06-05-2025 10:01-0400 Body mass index (BMI) [Ratio] 25.94 kg/m2 Elvis Pacheco MD Work Phone: [facility] 06-05-2025 10:01-0400 Body weight 75 kg Elvis Pacheco MD Work Phone: [facility] 06-05-2025 10:01-0400 Body weight 74.84 kg Elvis Pacheco MD Work Phone: [facility] 06-05-2025 10:01-0400 BP SITE #1 Elvis Pacheco MD Work Phone: [facility] 06-05-2025 10:01-0400 BP SITE #2 Elvis Pacheco MD Work Phone: [facility] 06-05-2025 10:01-0400 Diastolic blood pressure 93 mm[Hg] Elvis Pacheco MD Work Phone: [facility] 06-05-2025 10:01-0400 Diastolic blood pressure 92 mm[Hg] Elvis Pacheco MD Work Phone: [facility] 06-05-2025 10:01-0400 Heart rate 71 /min Elvis Pacheco MD Work Phone: [facility] 06-05-2025 10:01-0400 HGHTCHNVIS Elvis Pacheco MD Work Phone: [facility] 06-05-2025 10:01-0400 Systolic blood pressure 161 mm[Hg] Elvis Pacheco MD Work Phone: [facility] 06-05-2025 10:01-0400 Systolic blood pressure 157 mm[Hg] Elvis Pacheco MD Work Phone: [facility] 06-05-2025 10:01-0400 VITALSDONE Elvis Pacheco MD Work Phone: [facility] 08-25-2024 10:31-0500 Body height 170.2 cm Zara Key MD Work Phone: [facility] 08-25-2024 10:31-0500 Body mass index (BMI) [Ratio] 26.44 kg/m2 Zara Key MD Work Phone: [facility] 08-25-2024 10:31-0500 Body weight 76.57 kg Zara Key MD Work Phone: [facility] 08-25-2024 10:31-0500 Diastolic blood pressure 76 mm[Hg] Zara Key MD Work Phone: [facility] 08-25-2024 10:31-0500 Heart rate 95 /min Zara Key MD Work Phone: [facility] 08-25-2024 10:31-0500 Respiratory rate 12 /min Zara Key MD Work Phone: [facility] 08-25-2024 10:31-0500 SaO2% (BldA) [Mass fraction] 98 % Zara Key MD Work Phone: [facility] 08-25-2024 10:31-0500 Systolic blood pressure 128 mm[Hg] aZra Key MD Work Phone: [facility] 08-22-2024 13:29-0500 Body height 170.2 cm Chary Gamez MD Work Phone: [facility] [employer] 08-22-2024 13:29-0500 Body mass index (BMI) [Ratio] 26.41 kg/m2 Chary Gamez MD Work Phone: [facility] [employer] 08-22-2024 13:29-0500 Body temperature 98.01 [degF] Chary Gamez MD Work Phone: [facility] [employer] 08-22-2024 13:29-0500 Body weight 76.48 kg Chary Gamez MD Work Phone: [facility] [employer] 08-22-2024 13:29-0500 Diastolic blood pressure 97 mm[Hg] Chary Gamez MD Work Phone: [facility] [employer] 08-22-2024 13:29-0500 Heart rate 84 /min Chary Gamez MD Work Phone: [facility] 08-22-2024 13:29-0500 Respiratory rate 20 /min Chary Gamez MD Work Phone: [employer] [employer] 08-22-2024 13:29-0500 SaO2% (BldA) [Mass fraction] 98 % Chary Gamez MD Work Phone: [facility] [employer] 08-22-2024 13:29-0500 Systolic blood pressure 158 mm[Hg] Chary Gamez MD Work Phone: [facility] [employer] 07-19-2024 12:54-0500 Body height 167.6 cm Rex Rich DO Work Phone: [employer] 07-19-2024 12:54-0500 Body mass index (BMI) [Ratio] 26.95 kg/m2 Rex Rich DO Work Phone: [facility] [employer] 07-19-2024 12:54-0500 Body temperature 98.4 [degF] Rex Rich DO Work Phone: [facility] 07-19-2024 12:54-0500 Body weight 75.75 kg Rex Rich DO Work Phone: [facility] 07-19-2024 12:54-0500 Diastolic blood pressure 91 mm[Hg] Rex Rich DO Work Phone: [facility] [employer] 07-19-2024 12:54-0500 Heart rate 85 /min Rex Rich DO Work Phone: [facility] 07-19-2024 12:54-0500 SaO2% (BldA) [Mass fraction] 97 % Rex Rich DO Work Phone: [facility] 07-19-2024 12:54-0500 Systolic blood pressure 142 mm[Hg] Rex Rich DO Work Phone: [facility] 06-22-2024 11:01-0400 Body height 170.2 cm Luis A Victor MD Work Phone: [facility] 06-22-2024 11:01-0400 Body mass index (BMI) [Ratio] 25.53 kg/m2 Luis A Victor MD Work Phone: [facility] 06-22-2024 11:01-0400 Body weight 73.94 kg Luis A Victor MD Work Phone: [facility] 06-22-2024 11:01-0400 Diastolic blood pressure 78 mm[Hg] Luis A Victor MD Work Phone: [facility] 06-22-2024 11:01-0400 Heart rate 78 /min Luis A Victor MD Work Phone: [facility] 06-22-2024 11:01-0400 Respiratory rate 18 /min Luis A Victor MD Work Phone: [facility] 06-22-2024 11:01-0400 SaO2% (BldA) [Mass fraction] 100 % Luis A Victor MD Work Phone: [facility] 06-22-2024 11:01-0400 Systolic blood pressure 126 mm[Hg] Luis A Victor MD Work Phone: [facility] 09-03-2023 14:59-0500 Body mass index (BMI) [Ratio] 26.08 kg/m2 Chary Gamez MD Work Phone: [facility] 09-03-2023 14:59-0500 Body temperature 97.11 [degF] Chary Gamez MD Work Phone: [facility] [employer] 09-03-2023 14:59-0500 Body weight 73.3 kg Chary Gamez MD Work Phone: [facility] 09-03-2023 14:59-0500 Diastolic blood pressure 84 mm[Hg] Chary Gamez MD Work Phone: [facility] [employer] 09-03-2023 14:59-0500 Heart rate 88 /min Chary Gamez MD Work Phone: [facility] [employer] 09-03-2023 14:59-0500 Respiratory rate 16 /min Chary Gamez MD Work Phone: [facility] [employer] 09-03-2023 14:59-0500 Systolic blood pressure 140 mm[Hg] Chary Gamez MD Work Phone: [facility] [employer] 07-21-2023 13:42-0500 Body height 167.6 cm Rex Rich DO Work Phone: [facility] [employer] 07-21-2023 13:42-0500 Body mass index (BMI) [Ratio] 26.63 kg/m2 Rex Rich DO Work Phone: [facility] [employer] 07-21-2023 13:42-0500 Body temperature 98.1 [degF] Rex Rich DO Work Phone: [facility] [employer] 07-21-2023 13:42-0500 Body weight 74.84 kg Rex Rich DO Work Phone: [facility] [employer] 07-21-2023 13:42-0500 Diastolic blood pressure 90 mm[Hg] Rex Rich DO Work Phone: [facility] [employer] 07-21-2023 13:42-0500 Heart rate 74 /min Rex Rich DO Work Phone: [facility] [employer] 07-21-2023 13:42-0500 SaO2% (BldA) [Mass fraction] 98 % Rex Rich DO Work Phone: [facility] [employer] 07-21-2023 13:42-0500 Systolic blood pressure 150 mm[Hg] Rex Rich DO Work Phone: [facility] [employer] 05-27-2023 09:05-0400 Diastolic blood pressure 90 mm[Hg] Kristy Mkcnight MD Work Phone: [facility] 05-27-2023 09:05-0400 Systolic blood pressure 148 mm[Hg] Kristy Mcknight MD Work Phone: [facility] 05-27-2023 09:02-0400 Body height 168.9 cm Kristy Mcknight MD Work Phone: [facility] 05-27-2023 09:02-0400 Body weight 72.89 kg Kristy Mcknight MD Work Phone: [facility] [facility] 05-27-2023 09:02-0400 Heart rate 74 /min Kristy Mcknight MD Work Phone: [facility] 05-27-2023 09:02-0400 SaO2% (BldA) [Mass fraction] 97 % Kristy Mcknight MD Work Phone: [facility] 03-18-2023 11:28-0400 Diastolic blood pressure 60 mm[Hg] Luis A Victor MD Work Phone: [facility] 03-18-2023 11:28-0400 Systolic blood pressure 115 mm[Hg] Luis A Victor MD Work Phone: [facility] 03-18-2023 10:59-0400 Body height 168.9 cm Luis A Victor MD Work Phone: [facility] 03-18-2023 10:59-0400 Body weight 72.94 kg Luis A Victor MD Work Phone: [facility] 03-18-2023 10:59-0400 Heart rate 77 /min Luis A Victor MD Work Phone: [facility] 03-18-2023 10:59-0400 Respiratory rate 12 /min Luis A Victor MD Work Phone: [facility] 03-18-2023 10:59-0400 SaO2% (BldA) [Mass fraction] 96 % Luis A Victor MD Work Phone: [facility] 12-25-2022 12:12-0400 [facility] 12-25-2022 12:12-0400 Body mass index (BMI) [Ratio] 23.8 kg/m2 [facility] 12-25-2022 12:12-0400 Body temperature 97.7 [degF] [facility] 12-25-2022 12:12-0400 Body weight 72.12 kg [facility] 12-25-2022 12:12-0400 Diastolic blood pressure 70 mm[Hg] [facility] 12-25-2022 12:12-0400 Heart rate 91 /min [facility] 12-25-2022 12:12-0400 Respiratory rate 18 /min [facility] 12-25-2022 12:12-0400 SaO2% (BldA) [Mass fraction] 97 % [facility] 12-25-2022 12:12-0400 Systolic blood pressure 138 mm[Hg] [facility] 07-20-2022 10:07-0500 Body height 168.9 cm Grant Vaca Jr., MD Work Phone: [facility] 07-20-2022 10:07-0500 Body weight 70.31 kg Grant Vaca Jr., MD Work Phone: [facility] 07-20-2022 10:07-0500 Diastolic blood pressure 80 mm[Hg] Grant Vaca Jr., MD Work Phone: [facility] 07-20-2022 10:07-0500 Heart rate 100 /min Grant Vaca Jr., MD Work Phone: [facility] 07-20-2022 10:07-0500 SaO2% (BldA) [Mass fraction] 98 % Grant Vaca Jr., MD Work Phone: [facility] 07-20-2022 10:07-0500 Systolic blood pressure 138 mm[Hg] Grant Vaca Jr., MD Work Phone: [facility] 04-23-2022 10:15-0400 Diastolic blood pressure 84 mm[Hg] Kristy Mcknight MD Work Phone: [facility] 04-23-2022 10:15-0400 Systolic blood pressure 142 mm[Hg] Kristy Mcknight MD Work Phone: [facility] 04-23-2022 10:08-0400 Body height 175.3 cm Kristy Mcknight MD Work Phone: [facility] 04-23-2022 10:08-0400 Body weight 71.76 kg Kristy Mcknight MD Work Phone: [facility] 04-23-2022 10:08-0400 Heart rate 92 /min Kristy Mcknight MD Work Phone: [facility] 04-23-2022 10:08-0400 SaO2% (BldA) [Mass fraction] 97 % Kristy Mcknight MD Work Phone: [facility] Encounters Encounter Date Encounter Type Care Provider Facility Start: 07-17-2025 ambulatory ASHOK LUNDBERG [facility] lity:[facility] Start: 06-13-2025 End: 06-13-2025 ambulatory [facility] Facility:[facility] Start: 06-05-2025 In-person encounter Elvis martinez MD Work Phone: [facility] Work Phone: Start: 06-05-2025 Visit out of hours Elvis hodgson MD Work Phone: [facility] Work Phone: Start: 01-30-2025 End: 01-31-2025 ambulatory Luis A Victor MD Work Phone: [facility] Comment on above: lethargy, occasional tachycardia, SOB with minimal exertion Start: 12-12-2024 End: 12-12-2024 Refill Luis A Victor MD Work Phone: [facility] Comment on above: Refill Request Start: 08-29-2024 End: 08-29-2024 Telephone encounter Zara Key MD Work Phone: [facility] Comment on above: Results Patient Question Start: 08-25-2024 ambulatory ZARA KEY Facility:[facility] Start: 08-25-2024 Encounter for other preprocedural examination ZARA KEY [facility] Start: 08-25-2024 End: 08-25-2024 Preprocedural examination done [facility] Start: 08-25-2024 End: 08-25-2024 Subsequent hospital visit by physician [facility] Comment on above: Current every day va ping [Z72.89] Start: 08-25-2024 End: 08-25-2024 Office outpatient new 45 minutes Zara Key MD Work Phone: [facility] Comment on above: Pre-op evaluation (P rimary Dx); Screening for depression; Encounter for screening examination for other mental health and behavioral disorders; Current every day vaping; Primary hypertension; History of ductal carcinoma in situ (DCIS) of breast; Glaucoma, unspecified glaucoma type, unspecified laterality; Macular degeneration of right eye, unspecified type; Alcohol abuse Start: 08-25-2024 End: 08-25-2024 Preprocedural examination done Zara Key MD Work Phone: [facility] Work Phone: Start: 08-25-2024 End: 08-25-2024 ambulatory ZARA KEY Facility: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 Start: 07-19-2024 End: 07-19-2024 Office outpatient visit 25 minutes Rex E Rich DO Work Phone: [facility] Oncology [facility] Comment on above: Ductal carcinoma in situ (DCIS) of right breast (Primary Dx); longterm current use of aromatase inhibitor Start: 07-19-2024 End: 07-19-2024 ambulatory REX VILLANUEVA [facility] Start: 07-05-2024 End: 07-05-2024 Patient encounter procedure [facility] Provider [facility] Department Start: 07-04-2024 End: 07-04-2024 Patient encounter procedure [facility] Provider [facility] Department Start: 07-04-2024 End: 07-04-2024 Telephone encounter Luis A Vcitor MD Work Phone: [facility] Comment on above: Results Cardiac Clearance Start: 07-03-2024 ambulatory LUIS A VICTOR Facilit y:[facility] Start: 07-03-2024 End: 07-03-2024 Subsequent hospital visit by physician Stress Lab 1 [facility] Work Phone: Cardiology Lab Comment on above: LOPEZ (dyspnea on exer tion) [R06.09] Start: 07-03-2024 ambulatory LUIS A VICTOR Facilit y:[facility] Start: 07-03-2024 End: 07-03-2024 Subsequent hospital visit by physician [facility] 2 Work Phone: Molecular Imaging Comment on above: LOPEZ (dyspnea on exer tion) [R06.09] Start: 06-30-2024 End: 06-30-2024 Telephone encounter Pooja Bell RN Cardiology Lab Comment on above: Reminder Call Start: 06-26-2024 End: 06-26-2024 Telephone encounter Luis A Victor MD Work Phone: [facility] Card[facility] [place] Comment on above: Results Start: 06-22-2024 End: 06-22-2024 Patient encounter procedure Luis A Victor MD Work Phone: [facility] [place] Comment on above: Mild pulmonary hyper tension (HCC) (Primary Dx); Essential hypertension; Alcohol abuse; Electronic cigarette use; Reed's esophagus with dysplasia; Tachycardia; LOPEZ (dyspnea on exertion) Start: 06-07-2024 End: 06-07-2024 Subsequent hospital visit by physician Mri [facility] (1.5t) [facility] Comment on above: Disease of spinal co rd, unspecified [G95.9] Start: 05-19-2024 End: 05-19-2024 ambulatory [facility] Facility:[facility] Start: 04-06-2024 Get Medical Advice Luis A Victor MD Work Phone: [facility] [place] Comment on above: Metaprolol refill Start: 04-06-2024 Refill Luis A tejeda MD Work Phone: [facility] [place] Comment on above: Refill Request Start: 03-17-2024 End: 03-17-2024 ambulatory [facility] Facility:[facility] Start: 01-12-2024 Admission to [facility] Kristy Mcknight MD Work Phone: General Surgery Comment on above: is there a metal mar ker in my right breast? Start: 01-12-2024 ambulatory Kristy tucker MD Work Phone: General Surgery Start: 12-13-2023 ambulatory Luis A tejeda MD Work Phone: [facility] [place] Comment on above: losartan Start: 12-10-2023 ambulatory Luis A tejeda MD Work Phone: [facility] [place] Comment on above: Losartan renewal Start: 09-03-2023 End: 09-03-2023 Office outpatient visit 15 minutes Chary Gamez MD Work Phone: [facility] Comment on above: Ductal carcinoma in situ (DCIS) of right breast (Primary Dx) Start: 09-03-2023 End: 09-03-2023 [facility] CHARY GAMEZ [facility] Start: 07-21-2023 End: 07-21-2023 Office outpatient visit 25 minutes Rex Villanueva DO Work Phone: [facility] Oncology Comment on above: Ductal carcinoma in situ (DCIS) of right breast (Primary Dx) Start: 05-27-2023 End: 05-27-2023 ambulatory KRISTY MCKNIGHT Facility:[facility] Start: 05-27-2023 End: 05-27-2023 Patient encounter procedure Kristy Mcknight MD Work Phone: General Surgery Comment on above: Ductal carcinoma in situ (DCIS) of right breast (Primary Dx) Start: 04-01-2023 Refill Luis A tejeda MD Work Phone: [facility] [place] Comment on above: Refill Request Start: 03-25-2023 Telephone encounter Luis A Victor MD Work Phone: [facility] General Cardiology Comment on above: Results Start: 03-23-2023 End: 03-23-2023 Subsequent hospital visit by physician Card/Pulm Lab [facility] Comment on above: Mild pulmonary hyper tension (HCC) [I27.20] Start: 03-18-2023 End: 03-18-2023 Patient encounter procedure Luis A Victor MD Work Phone: [facility] [place] Comment on above: Mild pulmonary hyper tension (HCC) (Primary Dx); Tricuspid valve regurgitation, nonrheumatic; Primary hypertension; Alcohol abuse; Electronic cigarette use; Reed's esophagus with dysplasia; Tachycardia Start: 12-24-2022 End: 12-24-2022 ambulatory [facility] Work Phone: Start: 12-24-2022 End: 12-24-2022 Patient encounter procedure [facility]atory, Specimen Start: 12-10-2022 Get Medical Advice Luis A Victor MD Work Phone: [facility] [place] Comment on above: follow up on metopro lol and refill of losartan Start: 11-27-2022 ambulatory Luis A tejeda MD Work Phone: [facility] [place] Comment on above: hypertension Start: 11-23-2022 End: 11-23-2022 ambulatory Kristy Mcknight MD Work Phone: General Surgery Comment on above: mammogram Start: 08-03-2022 End: 08-03-2022 Subsequent hospital visit by physician Screen/Diagnostic Mammo [facility] Work Phone: Mammography Start: 07-24-2022 End: 07-24-2022 Subsequent hospital visit by physician [facility] Comment on above: Pain in left hip [M2 5.552] Start: 07-20-2022 End: 07-20-2022 Patient encounter procedure Grant Vaca MD Work Phone: [facility] Adult [facility] Comment on above: Screening for lipid disorders (Primary Dx); Essential hypertension Start: 04-23-2022 End: 04-23-2022 Patient encounter procedure Kristy Mcknight MD Work Phone: General Surgery Comment on above: Ductal carcinoma in situ (DCIS) of right breast (Primary Dx); Screening mammogram for breast cancer Start: 03-10-2022 End: 03-10-2022 Subsequent hospital visit by physician Mammo/Bone Density [facility] Comment on above: Bone Density Start: 01-21-2022 Telephone encounter Grant Vaca MD Work Phone: [facility] Comment on above: Appointment (Letter Mailed ) Start: 01-20-2022 End: 01-20-2022 Subsequent hospital visit by physician Rex Villanueva DO [facility] Start: 01-15-2022 End: 01-15-2022 Subsequent hospital visit by physician Chary Gamez MD Work Phone: [facility] Start: 01-12-2022 End: 01-12-2022 Subsequent hospital visit by physician Chary Gamez MD Work Phone: [facility] Start: 01-09-2022 End: 01-09-2022 Subsequent hospital visit by physician Chary Gamez MD Work Phone: [facility] Start: 01-07-2022 End: 01-07-2022 Subsequent hospital visit by physician Chary Gamez MD Work Phone: [facility] Start: 01-06-2022 End: 01-06-2022 Subsequent hospital visit by physician Chary Gamez MD Work Phone: [facility] Start: 01-05-2022 End: 01-05-2022 Subsequent hospital visit by physician Chary Gamez MD Work Phone: [facility] Start: 01-02-2022 End: 01-02-2022 Subsequent hospital visit by physician Chary Gamez MD Work Phone: [facility] Start: 01-01-2022 End: 01-01-2022 Subsequent hospital visit by physician Chary Gamez MD Work Phone: [facility] Start: 12-31-2021 End: 12-31-2021 Subsequent hospital visit by physician Chary Gamez MD Work Phone: [facility] Start: 12-30-2021 End: 12-30-2021 Subsequent hospital visit by physician Chary Gamez MD Work Phone: [facility] Start: 12-25-2021 End: 12-25-2021 Subsequent hospital visit by physician Chary Gamez MD Work Phone: [facility] Start: 12-24-2021 End: 12-24-2021 Subsequent hospital visit by physician Chary Gamez MD Work Phone: [facility] Start: 12-18-2021 End: 12-18-2021 Subsequent hospital visit by physician Chary Gamez MD Work Phone: [facility] Start: 12-15-2021 End: 12-15-2021 Subsequent hospital visit by physician Chary Gamez MD Work Phone: [facility] Start: 12-12-2021 End: 12-12-2021 Subsequent hospital visit by physician Chary Gamez MD Work Phone: [facility] Start: 12-10-2021 End: 12-10-2021 Subsequent hospital visit by physician Chary Gamez MD Work Phone: [facility] Start: 12-09-2021 End: 12-09-2021 Subsequent hospital visit by physician Chary Gamez MD Work Phone: [facility] Start: 12-01-2021 End: 12-01-2021 Subsequent hospital visit by physician Chary Gamez MD Work Phone: [facility] Start: 11-27-2021 End: 11-27-2021 Subsequent hospital visit by physician Chary Gamez MD Work Phone: [facility] Start: 11-19-2021 End: 11-19-2021 Subsequent hospital visit by physician Chary Gamez MD Work Phone: [facility] Start: 11-19-2021 End: 11-19-2021 Subsequent hospital visit by physician Chary Gamez MD Work Phone: [facility] Start: 11-11-2021 End: 11-11-2021 Subsequent hospital visit by physician Javier Ny Work Phone: [facility] Laboratory Start: 10-02-2021 End: 10-02-2021 Subsequent hospital visit by physician Procedure Mammo [facility] Mammography Procedures Date Procedure Procedure Detail Performing Clinician Start: 06-05-2025 Blood pressure outside of normal parameters - follow-up not documented Elvis Pacheco MD Work Phone: Start: 06-05-2025 BMI outside of normal parameters - no follow-up plan/reason not given Elvis Pacheco MD Work Phone: Start: 06-05-2025 Documentation of current medications Elvis J Junior MD Work Phone: Start: 06-05-2025 Pain assessment documented as negative - follow-up not required Elvis Pacheco MD Work Phone: Start: 06-05-2025 Tobacco screening or cessation counseling not performed - unknown reason Elvis Pacheco MD Work Phone: Start: 09-14-2024 Aftercare Orthopaedic aftercare Elvis Pacheco MD Work Phone: Start: 09-14-2024 Cervical arthrodesis Cervical fusion Elvis Pacheco MD Work Phone: Start: 08-25-2024 Adult depression screening assessment Zara Key MD Work Phone: Start: 07-17-2024 Adult depression screening assessment Rex Villanueva DO Work Phone: Start: 07-03-2024 Myocardial spect multiple studies Luis A Victor MD Work Phone: Start: 06-24-2024 Lipid 1996 panel - Serum or Plasma Luis A Victor MD Work Phone: Start: 06-07-2024 Mri spinal canal cervical w/o contrast matrl [facility] Provider Start: 07-20-2023 Adult depression screening assessment Rex Villanueva DO Work Phone: Start: 03-23-2023 Echo tthrc r-t 2d w/wom-mode compl spec&colr d Luis A Victor MD Work Phone: Start: 10-23-2022 Lipid 1996 panel - Serum or Plasma Kristy Mcknight MD Work Phone: Start: 08-03-2022 End: 08-03-2022 Digital breast tomosynthesis bilateral Ellen Cruz PA-C Work Phone: Start: 07-24-2022 Radex hip unilateral with pelvis 2-3 views Kerwin Tejada STATE AUDITOR.RESTORATIVE CARE TECHNICIAN Work Phone: Start: 03-10-2022 Dxa bone density study 1/> sites axial skel Javier Ny MD Work Phone: Start: 11-27-2021 [facility] Chary Gamez MD Work Phone: Start: 10-02-2021 Diagnostic mammography computer-aided detcj uni Kristy Mcknight MD Work Phone: Start: 10-02-2021 Perq breast loc device placedc 1st lesio us imag Kristy Mcknight MD Work Phone: Start: 07-29-2021 Mammography Grant Vaca Jr., MD Work Phone: Start: 06-18-2021 Adult depression screening assessment Grant Vaca Jr., MD Work Phone: Start: 11-07-2019 History of cataract extraction H/O cataract removal with insertion of prosthetic lens Grant Vaca Jr., MD Work Phone: Start: 10-04-2017 Colonoscopy Grant Vaca Jr., MD Work Phone: Investigation of transfusion reaction Nasopharyngeal Culture Plan of Treatment Date Care Activity Detail Author Start: 06-24-2029 Lipid panel Lipid Screening [facility] Start: 10-23-2027 Lipid 1996 panel - S rohit or Plasma Lipid Screening [facility] Start: 10-23-2027 Lipid panel Lipid Screening [facility] Start: 10-23-2027 LIPID SCREEN LIPID SCREEN [facility] Start: 06-24-2027 Diabetes Screening Diabetes Screenin g [facility] Start: 12-21-2026 Diabetes Screening Diabetes Screenin g [facility] Start: 10-04-2026 Lipid panel Lipids [facility] Start: 10-04-2026 LIPID SCREEN LIPID SCREEN [facility] Start: 08-06-2026 Diabetes Screening Diabetes Screenin g [facility] Start: 2025 RSV Vaccine (1 - 1-d ose 75+ series) RSV Vaccine (1 - 1-dose 75+ series) [facility] Start: 10-23-2025 DIABETES SCREEN DIABETES SCREEN [facility] Start: 10-23-2025 Diabetes Screening Diabetes Screenin g [facility] Start: 08-27-2025 End: 08-27-2025 Patient encounter procedure 08/27/2025 10:00 AM EST Office Visit [facility] [address] [place] [address] Zara Key MD [address] [place] [address] yearly physical [facility] Comment on above: yearly physical Start: 08-25-2025 Annual PCP Team Retail Account Representative ofelia Disease Visit Annual PCP Team Chronic Disease Visit [facility] Start: 08-25-2025 Anxiety Screening Anxiety Screening [facility] Start: 08-25-2025 BP Controlled (<130/80) BP Controlle d (<130/80) [facility] Start: 08-25-2025 Depression Screening Depression Scre ening [facility] Start: 08-23-2025 Screening for malign ant neoplasm of breast Mammogram Screening [facility] Start: 08-22-2025 End: 08-22-2025 Patient encounter procedure 08/22/2025 2:00 PM EST Appointment [facility] [place] [address] [place] [id number] Chary Gamez MD [address] [facility] [address] [place] [address] [facility] Start: 08-16-2025 Annual PCP Team Retail Account Representative ofelia Disease Visit Annual PCP Team Chronic Disease Visit [facility] Start: 07-19-2025 End: 07-19-2025 Patient encounter procedure 07/19/2025 1:00 PM EST [facility] [address] [place] [address] Rex Villanueva DO [address] [place] [address] [facility] Start: 07-17-2025 Depression Screening Depression Scre ening [facility] Start: 06-22-2025 BP Controlled (<130/80) BP Controlle d (<130/80) [facility] Start: 05-07-2025 Influenza vaccination Influenz a Vaccine (Season Ended) [facility] Start: 10-04-2024 DIABETES SCREEN DIABETES SCREEN [facility] Start: 09-06-2024 Advance Directive Discussion Advance Directive Discussion [facility] Start: 08-25-2024 End: 08-25-2024 Patient encounter procedure 08/25/2024 10:40 AM EST Office Visit [facility] [address] [place], [place] [id number] Zara Key MD [address] [place] [address] [phone] Pre-op appointment, and establish care, per shahid make 60 mins, pt had to reschedule last visit due to cant drive at night back to [place]. [facility] Comment on above: Pre-op appointment, and establish care, per shahid make 60 mins, pt had to reschedule last visit due to cant drive at night back to [place]. Start: 08-20-2024 End: 09-18-2025 DBT Breast - bilateral screening Bilateral screening mammogram with tomosynthesis Imaging Routine Ductal carcinoma in situ (DCIS) of right breast Expected: 08/20/2024, Expires: 09/18/2025 [facility] [employer] Work Phone: Comment on above: Expected: 08/20/2024 , Expires: 09/18/2025 Start: 08-19-2024 Screening for malign ant neoplasm of breast Mammogram Screening [facility] Start: 08-16-2024 End: 08-16-2024 Patient encounter procedure 08/16/2024 3:40 PM EST Office Visit [facility] [address] [place] [address] [phone] Zara Key MD [address] [place] [address] [phone] Yearly follow up [facility] Comment on above: Yearly follow up Start: 08-13-2024 Annual PCP Team Retail Account Representative ofelia Disease Visit Annual PCP Team Chronic Disease Visit [facility] Start: 07-20-2024 Depression Screening Depression Scre reji [facility] [employer] Start: 07-19-2024 End: 07-19-2025 DXA Skeletal system.axial Views for bone density DEXA bone density axial skeleton Imaging Routine longterm current use of aromatase inhibitor Expected: 07/19/2024, Expires: 07/19/2025 [facility] Comment on above: Expected: 07/19/2024 , Expires: 07/19/2025 Start: 07-19-2024 End: 07-19-2024 Patient encounter procedure [facility] Start: 07-03-2024 Subsequent hospital visit by physician Cardiology Lab Comment on above: Other forms of dyspn ea [R06.09] LOPEZ (dyspnea on exer tion) [R06.09] Start: 07-03-2024 End: 07-03-2024 Patient encounter procedure 07/03/2024 12:45 PM EDT Appointment [facility] [address] [place] [address] NM CARDIAC PERF STRESS/PHARM [facility] Comment on above: NM CARDIAC PERF STRE SS/PHARM Start: 06-22-2024 End: 09-21-2024 Basic metabolic 2000 panel - Serum or Plasma BASIC METABOLIC PANEL Lab Routine Mild pulmonary hypertension (HCC) Essential hypertension Expected: 06/22/2024, Expires: 09/21/2024 [facility] Comment on above: Expected: 06/22/2024 , Expires: 09/21/2024 Start: 06-22-2024 End: 09-21-2024 Lipid 1996 panel - Serum or Plasma LIPID PANEL BASIC Lab Routine Essential hypertension Expected: 06/22/2024, Expires: 09/21/2024 [facility] Comment on above: Expected: 06/22/2024 , Expires: 09/21/2024 Start: 06-22-2024 End: 06-22-2024 Patient encounter procedure [facility] Comment on above: overdue annual Mild pulmonary hypertension srs overdue annual Mild pulmonary hypertension [id number] Start: 06-07-2024 End: 06-07-2024 Patient encounter procedure 06/07/2024 3:45 PM EDT Appointment [facility] [address] [place] [id number] G95.9 Disease of spinal cord, unspecified [facility] Comment on above: G95.9 Disease of spi nal cord, unspecified Start: 05-07-2024 Covid-19 Vaccine ( season) Covid-19 Vaccine ( season) [facility] Start: 05-07-[address] [facility] Start: 03-18-2024 BP CONTROLLED (<130/80) BP CONTROLLE D (<130/80) [facility] Start: 03-16-2024 End: 03-16-2024 Patient encounter procedure 03/16/2024 2:20 PM EDT Office Visit [facility] [address] [place] [address] Luis A Victor MD [address] [place] [address] Annual Follow up with Dr. Victor [facility] Comment on above: Annual Follow up wit h Dr. Victor Start: 09-06-2023 Advance Directive Discussion Advance Directive Discussion [facility] Start: 09-06-2023 Behavioral Health Screening Behavioral Health Screening [facility] Start: 09-06-2023 Medicare Advantage A nnual Wellness Visit Medicare Advantage Annual Wellness Visit [facility] Start: 08-06-2023 End: 08-06-2023 Patient encounter procedure 08/06/2023 1:30 PM EST Appointment [facility] [address] [place] [id number] Chary Gamez MD [address] [place], [place] [id number] [facility] Start: 08-03-2023 Mammography [facility] Start: 07-20-2023 ANNUAL PCP TEAM ORNAMENTAL METAL ERECTOR APPRENTICE OFELIA DISEASE VISIT ANNUAL PCP TEAM CHRONIC DISEASE VISIT [facility] Start: 05-07-2023 COVID-19 Vaccine ( season) COVID-19 Vaccine ( season) [facility] Start: 05-07-2023 Covid-19 Vaccine ( season) Covid-19 Vaccine ( season) [facility] Start: 05-07-[address] [facility] Start: 03-18-2023 End: 05-18-2023 Thyrotropin [Units/volume] in Serum or Plasma TSH BLD Lab Routine Tachycardia Expected: 03/18/2023, Expires: 05/18/2023 [facility] Work Phone: Comment on above: Expected: 03/18/2023 , Expires: 05/18/2023 Start: 03-18-2023 End: 05-18-2023 Thyroxine (T4) free [Mass/volume] in Serum or Plasma T4 FREE/FREE THYROX Lab Routine Tachycardia Expected: 03/18/2023, Expires: 05/18/2023 [facility] Work Phone: Comment on above: Expected: 03/18/2023 , Expires: 05/18/2023 Start: 03-18-2023 End: 05-18-2023 Triiodothyronine (T3) Free [Mass/volume] in Serum or Plasma T3 FREE BLD Lab Routine Tachycardia Expected: 03/18/2023, Expires: 05/18/2023 [facility] Work Phone: Comment on above: Expected: 03/18/2023 , Expires: 05/18/2023 Start: 11-14-2022 COVID-19 VACCINE (6 - Pfizer series) COVID-19 VACCINE (6 - Pfizer series) [facility] Start: 10-20-2022 End: 12-20-2022 CBC panel - Blood by Automated count CBC Lab Routine Essential hypertension Expected: 10/20/2022 (Approximate), Expires: 12/20/2022 [facility] Work Phone: Comment on above: Expected: 10/20/2022 (Approximate), Expires: 12/20/2022 Start: 10-20-2022 End: 12-20-2022 Comprehensive metabolic 2000 panel - Serum or Plasma COMP METABOLIC PANEL Lab Routine Essential hypertension Expected: 10/20/2022 (Approximate), Expires: 12/20/2022 [facility] Work Phone: Comment on above: Expected: 10/20/2022 (Approximate), Expires: 12/20/2022 Start: 10-20-2022 End: 12-20-2022 Lipid 1996 panel - Serum or Plasma LIPID PANEL BASIC Lab Routine Screening for lipid disorders Expected: 10/20/2022 (Approximate), Expires: 12/20/2022 [facility] Work Phone: Comment on above: Expected: 10/20/2022 (Approximate), Expires: 12/20/2022 Start: 10-09-2022 Screening for malign ant neoplasm of breast Breast cancer screen [facility] Start: 10-04-2022 Colonoscopy COLONOSCOPY [facility] Start: 10-04-2022 COLORECTAL CANCER SCREENING COLORECTAL CANCER SCREENING [facility] Start: 10-04-2022 Creatinine measurement [facility] Start: 10-04-2022 Potassium [Moles/vol ume] in Serum or Plasma Potassium [facility] Start: 10-04-2022 Screening for malign ant neoplasm of colon [facility] Start: 10-04-2022 ZZPotassium ZZPotassium [facility] Start: 09-06-2022 ADVANCE DIRECTIVE DISCUSSION ADVANCE DIRECTIVE DISCUSSION [facility] Start: 09-06-2022 DEPRESSION ASSESSMENT DEPRESSION ASS ESSMENT [facility] Start: 07-30-2022 End: 05-23-2023 Diagnostic mammography computer-aided detcj bi [facility] Routine Screening mammogram for breast cancer Expected: 07/30/2022, Expires: 05/23/2023 [facility] Work Phone: Comment on above: Expected: 07/30/2022 , Expires: 05/23/2023 Start: 07-29-2022 Mammography MAMMOGRAM [facility] Start: 07-21-2022 End: 07-21-2022 Patient encounter procedure 07/21/2022 Office Visit Hematology and Oncology Rex Villanueva DO [address] [place] [address] [facility] Start: 06-18-2022 Adult depression scr eening assessment DEPRESSION SCREENING [facility] Start: 06-18-2022 ANNUAL PCP TEAM ORNAMENTAL METAL ERECTOR APPRENTICE OFELIA DISEASE VISIT ANNUAL PCP TEAM CHRONIC DISEASE VISIT [facility] Start: 06-15-2022 COVID-19 VACCINE (5 - Booster for Pfizer series) COVID-19 VACCINE (5 - Booster for Pfizer series) [facility] Start: 05-07-2022 Influenza vaccination [facility] Start: 01-20-2022 End: 01-20-2022 Patient encounter procedure 01/20/2022 Office Visit Hematology and Oncology Rex Villanueva DO [address] [place] [address] [facility] [place] Start: 12-30-2021 End: 12-30-2021 Patient encounter procedure 12/30/2021 Office Visit Hematology and Oncology Rex Villanueva DO [address] [place], [place] [id number] [facility] [place] Start: 11-09-2021 COVID-19 Vaccine (4 - Booster for Pfizer series) COVID-19 Vaccine (4 - Booster for Pfizer series) [facility] Start: 10-12-2021 COVID-19 VACCINE (4 - Booster for Pfizer series) COVID-19 VACCINE (4 - Booster for Pfizer series) [facility] Start: 09-11-2021 COVID-19 Vaccine (4 - Booster for Pfizer series) COVID-19 Vaccine (4 - Booster for Pfizer series) [facility] Start: 09-06-2021 ADVANCE DIRECTIVE DISCUSSION ADVANCE DIRECTIVE DISCUSSION [facility] Start: 09-06-2021 DEPRESSION ASSESSMENT DEPRESSION ASS ESSMENT [facility] Start: 09-06-2021 Urine microalbumin profile [facility] Start: 05-07-2021 Influenza vaccination Flu vaccine (# 1) [facility] Start: 12-08-2015 Pneumococcal 65+ yea rs Vaccine (1 of 1 - PPSV23) Pneumococcal 65+ years Vaccine (1 of 1 - PPSV23) [facility] Start: 09-06-2013 Pneumococcal 65+ yea rs Vaccine (2 - PCV) Pneumococcal 65+ years Vaccine (2 - PCV) [facility] Start: 09-06-2013 Pneumococcal Vaccine : 50+ (2 of 2 - PCV) Pneumococcal Vaccine: 50+ (2 of 2 - PCV) [facility] Start: 09-06-2013 Pneumococcal Vaccine : 50+ Years (2 of 2 - PCV) Pneumococcal Vaccine: 50+ Years (2 of 2 - PCV) [facility] Start: 09-06-2013 Pneumococcal Vaccine : 65+ (2 - PCV) Pneumococcal Vaccine: 65+ (2 - PCV) [facility] Start: 09-06-2013 Pneumococcal Vaccine : 65+ (2 of 2 - PCV) Pneumococcal Vaccine: 65+ (2 of 2 - PCV) [facility] Start: 09-06-2013 Pneumococcal Vaccine : 65+ Years (2 - PCV) Pneumococcal Vaccine: 65+ Years (2 - PCV) [facility] Start: 09-06-2013 Pneumococcal Vaccine : 65+ Years (2 of 2 - PCV) Pneumococcal Vaccine: 65+ Years (2 of 2 - PCV) [facility] Start: 09-06-2013 PNEUMOCOCCAL: 65+ (2 - PCV) PNEUMOCOCCAL: 65+ (2 - PCV) [facility] Start: 08-12-2013 Shingles Vaccine (2 of 3) Randhawa gles Vaccine (2 of 3) [facility] Start: 08-12-2013 SHINGRIX VACCINE (1 of 2) RANDHAWA GRIX VACCINE (1 of 2) [facility] Start: 08-12-2013 SHINGRIX VACCINE (2 of 3) RANDHAWA GRIX VACCINE (2 of 3) [facility] Start: 2010 RSV Immunization age d 60 or older (1 - 1-dose 60+ series) RSV Immunization aged 60 or older (1 - 1-dose 60+ series) [facility] Start: 2010 RSV Immunization for Adults (1 - Risk 60-74 years 1-dose series) RSV Immunization for Adults (1 - Risk 60-74 years 1-dose series) [facility] Start: 2010 RSV Vaccine (1 - 1-d ose 60+ series) RSV Vaccine (1 - 1-dose 60+ series) [facility] Start: 2010 RSV Vaccine (1 - Ris k 60-74 years 1-dose series) RSV Vaccine (1 - Risk 60-74 years 1-dose series) [facility] Start: 2005 Screening for osteoporosis DEX A (modify frequency per FRAX score) [facility] Start: 12-08-1995 COLOGUARD (FIT-DNA) COLOGUARD (FIT-D NA) [facility] Start: 12-08-[address] COLONOGRAPHY [facility] Start: 12-08-1995 FECAL OCCULT BLOOD FECAL OCCULT BLOO D [facility] Start: 12-08-1995 Screening for malign ant neoplasm of colon [facility] Start: 12-08-1995 SIGMOIDOSCOPY SIGMOIDOSCOPY [facility] Start: 1990 Lipid panel [facility] Start: 1990 Screening for malign ant neoplasm of breast Mammogram [facility] Start: 1969 DTaP/Tdap/Td vaccine (1 - Tdap) DTaP/Tdap/Td vaccine (1 - Tdap) [facility] Start: 1969 DTaP/Tdap/Td Vaccine s (1 - Tdap) DTaP/Tdap/Td Vaccines (1 - Tdap) [facility] Start: 1969 Hepatitis A Vaccines (1 of 2 - Risk 2-dose series) Hepatitis A Vaccines (1 of 2 - Risk 2-dose series) [facility] Start: 1968 Anxiety Screening Anxiety Screening [facility] Start: 1968 BP CONTROLLED (<130/80) BP CONTROLLE D (<130/80) [facility] Start: 1968 Creatinine measurement Creatinine [facility] Start: 1968 Depression Screening Depression Scre ening [facility] Start: 1968 Diabetes mellitus screening Diabetes Screening [facility] Start: 1968 Hepatitis C screening [facility] Start: 1968 Potassium [Moles/vol ume] in Serum or Plasma Potassium [facility] Start: 1962 Depression Screen Depression Screen [facility] Start: 1956 Pneumococcal 65+ yea rs Vaccine (1 - PCV) Pneumococcal 65+ years Vaccine (1 - PCV) [facility] Start: 1956 Pneumococcal 65+ yea rs Vaccine (1 of 4 - PPSV23) Pneumococcal 65+ years Vaccine (1 of 4 - PPSV23) [facility] Start: 1950 Creatinine measurement [facility] Start: 1950 Hepatitis C screening Hepatitis C sc reen [facility] Start: 1950 Lipid panel Lipid Panel [facility] Start: 1950 Medicare Advantage A nnual Wellness Visit (AWV) Medicare Advantage Annual Wellness Visit (AWV) [facility] Start: 1950 Potassium [Moles/vol ume] in Serum or Plasma Potassium [facility] Start: 04-03-1951 [facility]: [facility] Screening for malign ant neoplasm of colon [facility] End: 11-27-2021 CT Guidance Radiology Therapy [facility] Work Phone: Comment on above: Once for 1 Occurrenc es starting 11/27/2021 until 11/27/2021 End: 03-18-2024 Echocardiography ECHO Cardiology Routine Mild pulmonary hypertension (HCC) Tricuspid valve regurgitation, nonrheumatic 1 Occurrences starting 03/18/2023 until 03/18/2024 [facility] Work Phone: Comment on above: 1 Occurrences starti ng 03/18/2023 until 03/18/2024 End: 07-22-2025 NM Heart Perfusion W stress and W radionuclide IV NM CARDIAC PERF STRESS/PHARM Radiology Routine LOPEZ (dyspnea on exertion) 1 Occurrences starting 06/22/2024 until 07/22/2025 [facility] Work Phone: Comment on above: 1 Occurrences starti ng 06/22/2024 until 07/22/2025 End: 11-11-2021 Surgical Pathology [facility] Work Phone: Comment on above: Once for 1 Occurrenc es starting 11/11/2021 until 11/11/2021 End: 09-24-2025 XR Chest PA and Lateral XR CHEST 2V FRONTAL/LAT Radiology Routine Current every day vaping Pre-op evaluation 1 Occurrences starting 08/25/2024 until 09/24/2025 [facility] Work Phone: Comment on above: 1 Occurrences starti ng 08/25/2024 until 09/24/2025 XR Chest PA and Lateral XR CHEST 2V FRONTAL/LAT Radiology Routine Current every day vaping Pre-op evaluation 08/25/2024 12:21 PM EST [facility] Immunizations Immunization Date Immunization Notes Care Provider Megan spears 08-07-2022 zoster vaccine recombinant Kristy Mcknight MD Work Phone: [facility] 06-05-2022 zoster vaccine recombinant Kirsty Mcknight MD Work Phone: [facility] 06-11-2021 Pfizer SARS-CoV-2 Vaccination Rex Rich DO Work Phone: [facility] 12-02-2020 Pfizer SARS-CoV-2 Vaccination Rex Rich DO Work Phone: [facility] 11-11-2020 Pfizer SARS-CoV-2 Vaccination Rex Rich DO Work Phone: [facility] 06-18-2017 influenza virus vacc ine, unspecified formulation Kristy Mcknight MD Work Phone: [facility] 06-17-2013 zoster vaccine, live Grant Vaca Jr., MD Work Phone: [facility] 09-06-2012 pneumococcal polysaccharide vaccine, 23 valent Grant Vaca Jr., MD Work Phone: [facility] 06-13-2009 influenza, seasonal, injectable Grant Vaca Jr., MD Work Phone: [facility] 06-13-2009 pneumococcal conjuga te vaccine, 7 valent Grant Vaca Jr., MD Work Phone: [facility] 06-13-2009 influenza virus vacc ine, unspecified formulation Rex Rich DO Work Phone: [facility] Payers Date Payer Category Payer Self-pay [id number] 2020 Medicare (Managed Care) BC MED ICARE OOS [id number] 2020 Medicare HMO [facility] MEDICARE ADVANTAGE Member Subscriber Plan / Payer (Effective 2020-Present) Name: Rahel Ralph Relation to Subscriber: Self Name: Rahel Ralph Payer ID: [id number] (IC) Group ID: [id number] Type: Medicare HMO Address: [address] [id number] 2018 Medicare BCBS MEDICARE OO S [facility] MEDICARE PPO OOS [id number] 2018-Present [phone] [address] [place] [address] PPO [id number] 2018 Medicare [id number] 2018 Unknown [id number] 2016 Unknown ATTN PT FINANCIA L S SELF PAY [id number] 2016-Present [id number] [place] [address] Indemnity [id number] Unknown [id number] Unknown [id number] Unknown [id number] Social History Date Type Detail Facility Start: 10-29-2021 End: 08-25-2024 Tobacco smoking status NHIS Ex-smoker [facility] Work Phone: Start: 09-06-1962 End: 12-26-2013 History of tobacco use Current smoker [facility] Work Phone: Start: 09-06-1962 End: 12-26-2013 History of tobacco use Cigarette Smoker [facility] Work Phone: Start: 10-29-2021 End: 08-25-2024 Tobacco use and exposure Smokeless tobacco non-user [facility] Work Phone: Start: 10-29-2021 End: 08-25-2024 Alcohol intake Current drinker of alcohol (finding) [facility] Work Phone: Start: 10-29-2021 History SDOH Alcohol Comment Vodka [facility] Work Phone: Start: 1950 Sex Assigned At Not on file S [facility] Work Phone: Start: 10-22-2021 End: 03-18-2023 Alcohol intake [facility] Start: 01-20-2019 History SDOH Alcohol Comment Social - Type: hard liquor; Has 5 drink/day [facility] Start: 06-01-2019 End: 04-23-2022 Tobacco Comment date: 1962; Stop date: 2013 e-cigarettes Vapes now (06/01/2019) [facility] Start: 1950 Sex Assigned At Female [facility] Start: 09-02-2021 End: 08-03-2022 Exposure to SARS-CoV-2 (event) Not sure [facility] Start: 11-11-2018 Tobacco smoking stat us NHIS Unknown if ever smoked [facility] Start: 03-18-2023 End: 06-05-2025 Tobacco use panel [facility] Adult Depression Screening Assessment 0 [facility] Start: 01-14-2019 Gender identity Identifies as female gender (finding) [facility] Start: 01-14-2019 Sexual orientation Heterosexual (fin ding) [facility] How often to you hav e a drink containing alcohol? 4 or more times a week [facility] How many standard drinks containing alcohol do you have on a typical day? 3 or 4 [facility] How often do you hav e 6 or more drinks on 1 occasion? Never [facility] Start: 04-06-2022 Sex Female (finding) [facility] Start: 08-22-2024 Tobacco use and exposure User of smokeless tobacco [facility] Start: 08-25-2024 Tobacco Comment date: 1962; St op date: 2013 e-cigarettes Vapes now (06/01/2019), smoked about 1 pack a day [facility] Goals Date Patient Goal Desired Activity /State Personal health goal Functional Status Date Assessment Result Facility 03-04-2015 Are you deaf, or do you have serious difficulty hearing No 03/04/2015 8:18 AM EDT Enid Goodman MA No [facility] 03-04-2015 Are you blind, or do you have serious difficulty seeing, even when wearing glasses No 03/04/2015 8:18 AM EDT Enid Goodman MA No [facility] 03-04-2015 Do you have serious difficulty walking or climbing stairs No 03/04/2015 8:18 AM EDT Enid Goodman MA No [facility] 03-04-2015 Do you have difficul ty dressing or bathing No 03/04/2015 8:18 AM EDT Enid Goodman MA No [facility] 03-04-2015 Because of a physica l, mental, or emotional condition, do you have difficulty doing errands alone such as visiting a physician's office or shopping No 03/04/2015 8:18 AM EDT Enid Goodman MA [facility] Mental Status Date Assessment Result Facility 03-04-2015 Because of a physica l, mental, or emotional condition, do you have serious difficulty concentrating, remembering, or making decisions No 03/04/2015 8:18 AM EDT Enid Goodman MA No [facility] Clinical Notes 03-26-2016 to 07-17-2025 Telephone Encounter - RaoMay01/31/2025 7:04 AM EDTTelephone Encounter - Rao May01/31/2025 7:04 AM EDTTelephone Encounter - Cara Bobo MA - 08/29/2024 11:27 AM EST Note Date & Type Note Facility 07-17-2025 Note HNO ID: [id number] Author: KELLY REEDER RT(R) Service: Radiology Author Type: Angular Js Developer Type: Progress Notes Filed: 07/17/2025 11:12 Note Text: Radiology Service Progress Note PATIENT NAME: Rahel Ralph DATE OF SERVICE: July 17, 2025 TIME: 11:11 AM PATIENT IDENTITY VERIFICATION COMPLETED USING TWO (2) IDENTIFIERS: Name and Date of confirmed by patient verbally. FALL SCREENING: Has the patient had 2 falls in the last year or 1 fall with injury or currently using an Ambulatory Assistive Device (Walker, Cane, Wheelchair, Crutches, etc.)? No PATIENT GENDER DATA: Assigned female at . status: : No status: NO. PATIENT RELEVANT IMPLANT DATA REVIEWED: Yes PATIENT PRESENTS WITH AN IMPLANTABLE OR ATTACHED CLINICAL DIRECTOR: No RADIOLOGY DEPARTMENT: CT; Exam(s) Completed: Sinus . Anesthesia: No PERIPHERAL IV DATA: Not applicable SIGNED BY: RT John(R) July 17, 2025 11:11 AM [facility] 06-13-2025 Note HNO ID: [id number] Author: BLAS TRINIDAD APRN.RESTORATIVE CARE TECHNICIAN Service: ? Author Type: Nurse Practitioner Type: Progress Notes Filed: 06/13/2025 11:13 Note Text: PRIMARY CARE PHYSICIAN: Zara [address] [place] [address] Chief Complaint Cardiac Follow Up HISTORY OF PRESENT ILLNESS: Mrs. Ralph is a 74 year old female who has a past medical history of hypertension comes into the office for routine cardiac follow up. Patient is known to Dr. Victor, who first saw the patient 06/01/2019. Patient was initially referred in 2019 for hypertension and regurgitation. She was told in the past that she had pulmonary hypertension. She was ordered to have a repeat echocardiogram done along with an EKG. Her repeat echo showed an EF of 63% with trace regurgitation. Echocardiograms were then recommended to be performed every 2-3 years if she is having symptoms such as chest pain or shortness of breath. She had another echo done in 2022 that resulted the same as the one in 2020. At her 2023 follow up, she was expressing some dyspnea on exertion and was ordered to undergo a nuclear stress test. Her stress test was low risk as there was no evidence for inducible ischemia. She comes in today for her routine follow up. Today she feels well but has reported that she has been having frequent nose bleeds over the past few days. She also reports that her blood pressure has been elevated during these episodes in the 170's. We discussed with her to change her scheduled metoprolol to carvedilol for better blood pressure control. She also explains that she drinks at least 5 glasses of hard liquor every day. She was educated on the risks of bleeding with increased alcohol consumption and recommended that she try to limit drinks to 1-2 per day or no drinks per day. Patient was agreeable to both changing medication and trying to limit alcohol consumption. Pt denies chest pain, leg swelling, shortness of breath, heart palpitations, orthopnea, cough, fever, dizziness, near syncope or syncope, nausea, vomiting, diaphoresis, or falls. Reviewed medications, recent blood work, and testing. Reviewed with patient and adjusted as needed : PMH, PSH, Fam hx, Social hx, Allergies. Medications: Current Outpatient Medications Medication Sig Dispense Refill vit A/vit C/vit E/zinc/copper (ICAPS AREDS PO) OTC NUTRITIONAL SUPPLEMENT Take 2 tablets by mouth once daily. Ambrotose AO OTC NUTRITIONAL SUPPLEMENT Take 1 capsule by mouth once daily. Floragen cyclobenzaprine (FLEXERIL) 5 mg tablet Take 5 mg by mouth three times a day as needed for muscle spasm. losartan (COZAAR) 100 mg tablet Take 1 tablet by mouth once daily. 90 tablet 3 metoprolol tartrate, short acting, (LOPRESSOR) 25 mg tablet Take 1 tablet by mouth two times a day. 180 tablet 3 HYDROcodone-acetaminophen (NORCO) 5-325 mg per tablet Take 1 tablet by mouth every 6 hours as needed for pain. 30 tablet 0 famotidine (PEPCID) 40 mg tablet Take 40 mg by mouth once daily. letrozole (FEMARA) 2.5 mg tablet Take 2.5 mg by mouth once daily. B2/vits A,C,E/lut/zeaxanth/min (ICAPS ORAL) Take by mouth. Cholecalciferol, Vitamin D3, 25 mcg (1,000 unit) cap Take 2 capsules by mouth once daily. Vitamin D3 L.acid/L.casei/B.bif/B.rudolph/FOS (PROBIOTIC BLEND ORAL) Take by mouth. multivitamin tablet Take 1 tablet by mouth once daily. MEDICATION, NON-DATABASE Take 2 tablets by mouth once daily. ambrotose AO LUMIGAN 0.01 % drop ophthalmic drops Use 1 Drop in both eyes daily at bedtime. vitamin b complex capsule Take 2 capsules by mouth once daily. LECITHIN ORAL Take 2 capsules by mouth once daily. MILK THISTLE ORAL Take 2 capsules by mouth once daily. No current facility-administered medications for this visit. Review of Systems Constitutional: Negative for activity change, appetite change, chills, diaphoresis, fatigue, fever and unexpected weight change. HENT: Negative for facial swelling and trouble swallowing. Eyes: Negative for visual disturbance. Respiratory: Negative for apnea, cough, chest tightness, shortness of breath, wheezing and stridor. Cardiovascular: Negative for chest pain, palpitations and leg swelling. Gastrointestinal: Negative for abdominal distention, abdominal pain, blood in stool, nausea and vomiting. Genitourinary: Negative for hematuria. Musculoskeletal: Negative for arthralgias and myalgias. Neurological: Negative for dizziness, syncope, speech difficulty, weakness, light-headedness, numbness and headaches. Psychiatric/Behavioral: Negative for confusion and sleep disturbance. Physical Examination: Vitals:There were no vitals taken for this visit. Last 2 Encounter Wt Readings: Date: Wt: 08/25/2024 168 lb 12.8 oz (76.6 kg) 08/16/2024 171 lb (77.6 kg) Physical Exam Vitals reviewed. Constitutional: Appearance: Normal appearance. HENT: Head: Normocephalic. Nose: Nose normal. E (more content not included)... [facility] 06-13-2025 Note HNO ID: [id number] Author: VIOLETTA XAVIER LPN Service: ? Author Type: Licensed Nurse Type: Progress Notes Filed: 06/13/2025 11:13 Note Text: Patient c/o elevated BP for the past 3 months. States she has also had nose bleeds off and on for the past couple months. Patient states she lost her sense of taste and smell 5 months ago. [facility] 01-31-2025 Telephone encounter Note Good morning Pat, Dr. Victor won't have anything until his scheduled open for next year. I could schedule you with one of his nurse practitioners if you'd like. Please let me know what you would for me to do. Thanks May [facility] 01-31-2025 Miscellaneous Notes Good morning Pat, Dr. Victor won't have anything until his scheduled open for next year. I could schedule you with one of his nurse practitioners if you'd like. Please let me know what you would for me to do. Thanks May documented in this encounter [facility] 12-12-2024 Telephone encounter Note Patient's request for medication is as follows: Requested Prescriptions Refused Prescriptions Disp Refills losartan (COZAAR) 100 mg tablet 90 tablet 3 Sig: Take 1 tablet by mouth once daily. Last confirmed receipt by pharmacy on 06/22/2024 for 90 tabs 3 refills. Prescription(s) as above. Please process accordingly. Keturah Delarosa LPN [facility] 12-12-2024 Miscellaneous Notes Patient's request for medication is as follows: Requested Prescriptions Refused Prescriptions Disp Refills losartan (COZAAR) 100 mg tablet 90 tablet 3 Sig: Take 1 tablet by mouth once daily. Last confirmed receipt by pharmacy on 06/22/2024 for 90 tabs 3 refills. Prescription(s) as above. Please process accordingly. Keturah Delarosa LPN documented in this encounter [facility] 08-29-2024 Telephone encounter Note Forms where faxed spoke to office on Saturday 08/25 [facility] 08-29-2024 Telephone encounter Note ----- Message from Lion Garcia sent at 08/25/2024 3:23 PM EST ----- [facility]/Zara Key MD / Urgent Matter surgical clearance form needs to be signed Subject Line Format: Medicine / Zara Key MD / [Issue] Select Department Name For Pool Routing Assistance: [facility] => [facility] APPT CTR [facility] [[id number]] = Patient: Rahel Ralph Date of : 1950 Primary Care Provider: Zara Key MD The reason I am contacting the office is: Call Back - Patient is requesting a call back from Dr Key about Tylor from [facility] [place] had called several and left message, the surgical clearance form that was filled out this morning the patient has not been signed and the pat is scheduled for surgery on Wednesday at 0700 this need an urgent matter please contact Tylor. Person calling if other than patient: Ivan garcia [facility] [phone] Best contact number: [phone] Thank you, Lion Trinidad August 25, 2024 3:23 PM [facility] 08-29-2024 Miscellaneous Notes Forms where faxed spoke to office on Saturday 08/25 ----- Message from Lion Garcia sent at 08/25/2024 3:23 PM EST ----- [facility]/Zara Key MD / Urgent Matter surgical clearance form needs to be signed Subject Line Format: Rajendra / Zara Key MD / [Issue] Select Department Name For Pool Routing Assistance: [facility] => AG FAMP/[facility] APPT CTR [facility] [[id number]] = Patient: Rahel Ralph Date of : 1950 Primary Care Provider: Zara Key MD The reason I am contacting the office is: Call Back - Patient is requesting a call back from Dr Key about [facility] had called several and left message, the surgical clearance form that was filled out this morning the patient has not been signed and the pat is scheduled for surgery on Wednesday at 0700 this need an urgent matter please contact Tylor. Person calling if other than patient: Ivan garcia [facility] [phone] Best contact number: [phone] Thank you, Lion Trinidad August 25, 2024 3:23 PM documented in this encounter [facility] 08-29-2024 Telephone encounter Note RESULTS SENT TO PT [facility] 08-29-2024 Telephone encounter Note ----- Message from Zara Key MD sent at 08/26/2024 3:52 PM EST ----- Please update patent that chest x-ray looks fine. Already sent completed clearance form to surgeon so should be good to go for surgery Zara Key MD [facility] 08-29-2024 Miscellaneous Notes RESULTS SENT TO PT ----- Message from Zara Key MD sent at 08/26/2024 3:52 PM EST ----- Please update patent that chest x-ray looks fine. Already sent completed clearance form to surgeon so should be good to go for surgery Zara Key MD documented in this encounter [facility] 08-25-2024 History of Present illness Narrative Radiology Service Progress Note PATIENT NAME: Rahel Ralph DATE OF SERVICE: August 25, 2024 TIME: 2:36 PM PATIENT IDENTITY VERIFICATION COMPLETED USING TWO (2) IDENTIFIERS: Name and Date of confirmed by patient verbally. FALL SCREENING: Has the patient had 2 falls in the last year or 1 fall with injury or currently using an Ambulatory Assistive Device (Walker, Cane, Wheelchair, Crutches, etc.)? No PATIENT GENDER DATA: Female. status: : No status: NO. PATIENT RELEVANT IMPLANT DATA REVIEWED: Not Applicable PATIENT PRESENTS WITH AN IMPLANTABLE OR ATTACHED CLINICAL DIRECTOR: No RADIOLOGY DEPARTMENT: General X-ray: Exam(s) Completed: Chest X-Ray PERIPHERAL IV DATA: Not applicable SIGNED BY: KENDALL Dodd August 25, 2024 2:36 PM documented in this encounter [facility] 08-25-2024 Note HNO ID: [id number] Author: GAIL CASE CT Service: ? Author Type: Technologist Type: Progress Notes Filed: 08/25/2024 14:36 Note Text: Radiology Service Progress Note PATIENT NAME: Rahel Ralph DATE OF SERVICE: August 25, 2024 TIME: 2:36 PM PATIENT IDENTITY VERIFICATION COMPLETED USING TWO (2) IDENTIFIERS: Name and Date of confirmed by patient verbally. FALL SCREENING: Has the patient had 2 falls in the last year or 1 fall with injury or currently using an Ambulatory Assistive Device (Walker, Cane, Wheelchair, Crutches, etc.)? No PATIENT GENDER DATA: Female. status: : No status: NO. PATIENT RELEVANT IMPLANT DATA REVIEWED: Not Applicable PATIENT PRESENTS WITH AN IMPLANTABLE OR ATTACHED CLINICAL DIRECTOR: No RADIOLOGY DEPARTMENT: General X-ray: Exam(s) Completed: Chest X-Ray PERIPHERAL IV DATA: Not applicable SIGNED BY: KENDALL Dodd August 25, 2024 2:36 PM [facility] 08-25-2024 Note HNO ID: [id number] Author: ZARA KEY MD Service: ? Author Type: Physician Type: Progress Notes Filed: 08/25/2024 12:48 Note Text: [facility] [address] [place] [address] Date of Evaluation: 08/25/2024 Patient Name: Rahel Ralph : 1950 Chief Complaint: Patient presents with: Establish Care Subjective Ms. Ralph is a 73 year old female with PMH significant for HTN, hx of R breast cancer s/p lumpectomy and radiation therapy, glaucoma, dry macular degeneration, osteoporosis, discoid lupus who presents for preoperative evaluation as well as establishing care with me. She sees GI (Dr Contreras) regularly and will see them every 5 years for colonoscopy and EGD. She sees Dr. Caal (ophthalmology) every 4 months. She sees radiation oncologist and oncology annually. She is on femara and will be on it for 5 years. She drinks alcohol daily and never had DT's when stopping alcohol. She usually drinks vodka and seltzer and will have 4-5 drinks a day. She has been drinking daily for last 20 years. She notes that surgeon is aware. HPI Referring surgeon: Dr. Sagar Valladares Date of surgery: 08/28/2024 Planned surgery/procedure: C6-C7 anterior cervical discectomy fusion Indication for planned surgery/procedure: neck pain Anticoagulant use: No Any heart related conditions: Yes, HTN Any history of arrhythmias: No Any lung conditions: No Diagnosis: Any history of DVT/PE: No Diabetes: No Any kidney disease or anemia: No Smoker: vaping, Do you get short of breath when you lie flat? No Are you currently on oxygen? No Any complications with previous surgeries? No If yes, what complication: Any previous adverse reactions to anesthesia? No Do you see any specialists? Cardiology, GI, ophthalmology, living coach (wears hearing aids) Any chest pain, shortness of breath, syncope, near syncope within the last 4 weeks? No Any shortness of breath or chest pain with light activity? No Is patient able to walk 4 blocks or 2 flight of stairs without significant chest pain, shortness of breath, or fatigue? Yes Any other recent surgeries: Yes Presurgical testing was completed on: 08/15/2024 Patient is able to perform the following physical activity: Walk indoors, such as around the house (1.75 METs) Do light work around the house, such as dusting or washing dishes (2.70 METs) Take care of self; that is eating, dressing, bathing, using the toilet (2.75 METs) Walk a block or two on level ground (2.75 METs) Do moderate work around the house such as vacuuming, sweeping floors, or carrying in groceries (3.50 METs) Do yardwork, such as raking leaves, weeding,or pushing a power mower (4.50 METs) Climb a flight of stairs or walk up a hill (5.50 METs) Significant anesthesia considerations: None. Review of Systems Constitutional: Negative for appetite change and unexpected weight change. HENT: Positive for hearing loss (has hearing aids). Negative for trouble swallowing. Eyes: Positive for visual disturbance (glaucoma, macular degeneration). Respiratory: Negative for shortness of breath and wheezing. Cardiovascular: Negative for chest pain and leg swelling. Gastrointestinal: Negative for abdominal pain, constipation and diarrhea. Genitourinary: Negative for difficulty urinating and dysuria. Musculoskeletal: Positive for arthralgias and neck pain. Skin: Negative for rash. Neurological: Negative for dizziness, syncope, weakness and light-headedness. Hematological: Does not bruise/bleed easily. Psychiatric/Behavioral: Negative for confusion and hallucinations. 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 pressure is elevated Hypertension Macular degeneration Osteoporosis Plaque psoriasis PAST SURGICAL HISTORY Procedure Laterality Date APPENDECTOMY BREAST LUMPECTOMY HX Right 10/09/2021 BUNIONECTOMY, LAPIDUS-TYPE Bilateral 1970 BX OF BREAST; INCISIONAL Right 09/23/2021 CATARACT EXTRACTION HX Right 11/07/2019 COLONOSCOPY FLX DX W/COLLJ SPEC WHEN PFRMD 2012 Colonoscopy COLONOSCOPY SCREENING 11/01/2020 DERM PATH BIOPSY PC 2017 chest TONSILLECTOMY PRIMARY/SECONDARY Tonsillectomy TUBAL LIGATION, 1968 FAMILY HISTORY Problem Relation Age of Onset Lung Cancer Mother Ischemic Heart Disease Father 60 Diabetes Father other (Gallbladder CA) Father other (Liver) Father cholangiocarcinoma Heart Attack Father 60 Cancer Brother Agent orange, bladder cancer COPD Brother Diabetes Maternal Grandmother Coronary Artery Disease Maternal Grandmother Diabetes Paternal Grandmother Breast Cancer Paternal Grandmother Social History Tobacco Use Smoking status: Former Current packs/day: 0.00 Types: Cigarettes Start date (more content not included)... [facility] 08-25-2024 History of Present illness Narrative Images from the original note were not included. [facility] [address] [place] [address] Date of Evaluation: 08/25/2024 Patient Name: Rahel Ralph : 1950 Chief Complaint: Patient presents with: Establish Care Subjective Ms. Ralph is a 73 year old female with PMH significant for HTN, hx of R breast cancer s/p lumpectomy and radiation therapy, glaucoma, dry macular degeneration, osteoporosis, discoid lupus who presents for preoperative evaluation as well as establishing care with me. She sees GI (Dr Contreras) regularly and will see them every 5 years for colonoscopy and EGD. She sees Dr. Caal (ophthalmology) every 4 months. She sees radiation oncologist and oncology annually. She is on femara and will be on it for 5 years. She drinks alcohol daily and never had DT's when stopping alcohol. She usually drinks vodka and seltzer and will have 4-5 drinks a day. She has been drinking daily for last 20 years. She notes that surgeon is aware. HPI Referring surgeon: Dr. Sagar Valladares Date of surgery: 08/28/2024 Planned surgery/procedure: C6-C7 anterior cervical discectomy fusion Indication for planned surgery/procedure: neck pain Anticoagulant use: No Any heart related conditions: Yes, HTN Any history of arrhythmias: No Any lung conditions: No Diagnosis: Any history of DVT/PE: No Diabetes: No Any kidney disease or anemia: No Smoker: vaping, Do you get short of breath when you lie flat? No Are you currently on oxygen? No Any complications with previous surgeries? No If yes, what complication: Any previous adverse reactions to anesthesia? No Do you see any specialists? Cardiology, GI, ophthalmology, living coach (wears hearing aids) Any chest pain, shortness of breath, syncope, near syncope within the last 4 weeks? No Any shortness of breath or chest pain with light activity? No Is patient able to walk 4 blocks or 2 flight of stairs without significant chest pain, shortness of breath, or fatigue? Yes Any other recent surgeries: Yes Presurgical testing was completed on: 08/15/2024 Patient is able to perform the following physical activity: Walk indoors, such as around the house (1.75 METs) Do light work around the house, such as dusting or washing dishes (2.70 METs) Take care of self; that is eating, dressing, bathing, using the toilet (2.75 METs) Walk a block or two on level ground (2.75 METs) Do moderate work around the house such as vacuuming, sweeping floors, or carrying in groceries (3.50 METs) Do yardwork, such as raking leaves, weeding,or pushing a power mower (4.50 METs) Climb a flight of stairs or walk up a hill (5.50 METs) Significant anesthesia considerations: None. Review of Systems Constitutional: Negative for appetite change and unexpected weight change. HENT: Positive for hearing loss (has hearing aids). Negative for trouble swallowing. Eyes: Positive for visual disturbance (glaucoma, macular degeneration). Respiratory: Negative for shortness of breath and wheezing. Cardiovascular: Negative for chest pain and leg swelling. Gastrointestinal: Negative for abdominal pain, constipation and diarrhea. Genitourinary: Negative for difficulty urinating and dysuria. Musculoskeletal: Positive for arthralgias and neck pain. Skin: Negative for rash. Neurological: Negative for dizziness, syncope, weakness and light-headedness. Hematological: Does not bruise/bleed easily. Psychiatric/Behavioral: Negative for confusion and hallucinations. 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 pressure is elevated Hypertension Macular degeneration Osteoporosis Plaque psoriasis PAST SURGICAL HISTORY Procedure Laterality Date APPENDECTOMY BREAST LUMPECTOMY HX Right 10/09/2021 BUNIONECTOMY, LAPIDUS-TYPE Bilateral 1970 BX OF BREAST; INCISIONAL Right 09/23/2021 CATARACT EXTRACTION HX Right 11/07/2019 COLONOSCOPY FLX DX W/COLLJ SPEC WHEN PFRMD 2011 Colonoscopy COLONOSCOPY SCREENING 11/01/2020 DERM PATH BIOPSY PC 2017 chest TONSILLECTOMY PRIMARY/SECONDARY <AGE 12 7 Tonsillectomy TUBAL LIGATION, 1968 FAMILY HISTORY Problem Relation Age of Onset Lung Cancer Mother Ischemic Heart Disease Father 60 Diabetes Father other (Gallbladder CA) Father other (Liver) Father cholangiocarcinoma Heart Attack Father 60 Cancer Brother Agent orange, bladder cancer COPD Brother Diabetes Maternal Grandmother Coronary Artery Disease Maternal Grandmother Diabetes Paternal Grandmother Breast Cancer Paternal Grandmother Social History Tobacco Use Smoking status: Former Current packs/day: 0.00 Types: Cigarettes Start date: 09/06/1962 Quit date: 12/26/2013 Years since quittin.6 Smokeless tobacco: Never Tobacco comments: date: 1962; Stop date: 2013 e-cigarettes Vapes now (06/01/2019), smoked about 1 pack a day Vaping Use Vaping status: current everyday user Substances: Flavoring Substance Use Topics Alcohol use: Yes Alcohol/week: 1.0 standard drink of alcohol Types: 1 Glasses of wine per week Comment: Social - Type: hard liquor; Has 5 drink/day Drug use: Never Current Outpatient Medications Medication Sig losartan (COZAAR) 100 mg tablet Take 1 tablet by mouth once daily. metoprolol tartrate, short acting, (LOPRESSOR) 25 mg tablet Take 1 tablet by mouth two times a day. HYDROcodone-acetaminophen (NORCO) 5-325 mg per tablet Take 1 tablet by mouth every 6 hours as needed for pain. famotidine (PEPCID) 40 mg tablet Take 40 mg by mouth once daily. letrozole (FEMARA) 2.5 mg tablet Take 2.5 mg by mouth once daily. B2/vits A,C,E/lut/zeaxanth/min (ICAPS ORAL) Take by mouth. Cholecalciferol, Vitamin D3, 25 mcg (1,000 unit) cap Take 2 capsules by mouth once daily. Vitamin D3 L.acid/L.casei/B.bif/B.rudolph/FOS (PROBIOTIC BLEND ORAL) Take by mouth. multivitamin tablet Take 1 tablet by mouth once daily. MEDICATION, NON-DATABASE Take 2 tablets by mouth once daily. ambrotose AO LUMIGAN 0.01 % drop ophthalmic drops Use 1 Drop in both eyes daily at bedtime. vitamin b complex capsule Take 2 capsules by mouth once daily. LECITHIN ORAL Take 2 capsules by mouth once daily. MILK THISTLE ORAL Take 2 capsules by mouth once daily. OTC NUTRITIONAL SUPPLEMENT Take 2 tablets by mouth once daily. Ambrotose AO OTC NUTRITIONAL SUPPLEMENT Take 1 capsule by mouth once daily. Floragen cyclobenzaprine (FLEXERIL) 5 mg tablet Take 5 mg by mouth three times a day as needed for muscle spasm. No current facility-administered medications for this visit. I have confirmed and edited as necessary the chief complaint, medications, past medical, family and social histories obtained by others. Objective BP 128/76 Pulse 95 Resp 12 Ht 5' 7 (1.70m) Wt 168 lb 12.8 oz (76.6kg) SpO2 98% BMI 26.43 kg/(m^2). Physical Exam Vitals reviewed. Constitutional: General: She is not in acute distress. Appearance: Normal appearance. She is not ill-appearing, toxic-appearing or diaphoretic. HENT: Head: Normocephalic and atraumatic. Right Ear: Ear canal and external ear normal. There is impacted cerumen. Left Ear: Ear canal and external ear normal. There is impacted cerumen. Nose: Nose normal. Mouth/Throat: Mouth: Mucous membranes are moist. Pharynx: Oropharynx is clear. No oropharyngeal exudate or posterior oropharyngeal erythema. Eyes: General: No scleral icterus. Extraocular Movements: Extraocular movements intact. Conjunctiva/sclera: Conjunctivae normal. Pupils: Pupils are equal, round, and reactive to light. Cardiovascular: Rate and Rhythm: Normal rate and regular rhythm. Heart sounds: No murmur heard. No friction rub. No gallop. Pulmonary: Effort: Pulmonary effort is normal. No respiratory distress. Breath sounds: Normal breath sounds. No wheezing, rhonchi or rales. Abdominal: General: Abdomen is flat. Bowel sounds are normal. There is no distension. Palpations: Abdomen is soft. Tenderness: There is no abdominal tenderness. Musculoskeletal: General: Normal range of motion. Cervical back: Normal range of motion and neck supple. No tenderness. Right lower leg: No edema. Left lower leg: No edema. Lymphadenopathy: Cervical: No cervical adenopathy. Skin: General: Skin is warm and dry. Coloration: Skin is not jaundiced. Neurological: Mental Status: She is alert and oriented to person, place, and time. Gait: Gait normal. Psychiatric: Mood and Affect: Mood normal. Behavior: Behavior normal. Thought Content: Thought content normal. Judgment: Judgment normal. Data Reviewed: Most recent EKG Outside chart from [facility] reviewed. ASSESSMENT/PLAN: 1. Pre-op evaluation - ICD9: V72.84, ICD10: Z01.818 (primary diagnosis) - reviewed recent labs and EKG - XR CHEST 2V FRONTAL/LAT 2. Screening for depression - ICD9: V79.0, ICD10: Z13.31 - DEPRESSION SCREENING 3. Encounter for screening examination for other mental health and behavioral disorders - ICD9: V79.8, ICD10: Z13.39 - ANXIETY SCREENING 4. Current every day vaping - ICD9: V69.8, ICD10: Z72.89 - XR CHEST 2V FRONTAL/LAT 5. Primary hypertension - ICD9: 401.9, ICD10: I10 - Controlled - Continue current medications - Recommend home blood pressure monitoring, to bring results to next visit - Encouraged sodium restriction, DASH or Mediterranean diet - Recommend regular aerobic exercise 6. History of ductal carcinoma in situ (DCIS) of breast - ICD9: V13.89, ICD10: Z86.000 - follows with hem/onc and radiation oncology - on femara 7. Glaucoma, unspecified glaucoma type, unspecified laterality - ICD9: 365.9, ICD10: H40.9 - follows with opthalmology 8. Macular degeneration of right eye, unspecified type - ICD9: 362.50, ICD10: H35.30 - follows with ophthalmology 9. Alcohol abuse - ICD9: 305.00, ICD10: F10.10 - discussed drinking habit and recommended limit for alcohol consumption one drink or less per day - discussed informing surgeon about drinking - will need to monitor closely for withdrawal symptoms following surgery, during post- operative period when admitted Zara Key MD Assessment/Plan Patient has the following medical comorbidities which might affect the perioperative course: - Hypertension, well controlled. - alcohol use disorder Diagnostic tests reviewed for today's visit: Most recent labs Most recent EKG Most recent stress test Medications to adjust: Antihypertensives: no changes Anticoagulants/Antiplatelets: NA Antihyperglycemics: NA NSAIDS: hold for 7 days prior to surgery I have discussed the above recommendations with the patient in detail, in yolanda and lay terms, and provided a verbal summary of instructions. We have discussed that no surgery is without risk, but that the goal of preoperative assessment is to optimize that risk, and that was clearly understood by the patient. I have given ample opportunity for the patient to ask questions, and answered all questions to their stated satisfaction Patient is optimally prepared for surgery pending CXR Return in about 6 months (around 02/23/2025) for follow up. Discussed the above with the patient using shared decision making. The patient is in agreement with the diagnostic and treatment plans. documented in this encounter [facility] 08-23-2024 History of Present illness Narrative Radiology Service Progress Note PATIENT NAME: Rahel Ralph DATE OF SERVICE: August 23, 2024 TIME: 3:49 PM PATIENT IDENTITY VERIFICATION COMPLETED USING TWO (2) IDENTIFIERS: Name and Date of confirmed by patient verbally. FALL SCREENING: Has the patient had 2 falls in the last year or 1 fall with injury or currently using an Ambulatory Assistive Device (Walker, Cane, Wheelchair, Crutches, etc.)? No PATIENT GENDER DATA: Female. status: : No status: N/A PATIENT RELEVANT IMPLANT DATA REVIEWED: Not Applicable PATIENT PRESENTS WITH AN IMPLANTABLE OR ATTACHED CLINICAL DIRECTOR: No RADIOLOGY DEPARTMENT: Bone Density PERIPHERAL IV DATA: Not applicable SIGNED BY: SOLOMON Gabriel) August 23, 2024 3:49 PM documented in this encounter [facility] 08-23-2024 Note HNO ID: [id number] Author: LIBRADO MELÉNDEZ RT (R) Service: Radiology Author Type: Technologist Type: Progress Notes Filed: 08/23/2024 15:50 Note Text: Radiology Service Progress Note PATIENT NAME: Rahel Ralph DATE OF SERVICE: August 23, 2024 TIME: 3:49 PM PATIENT IDENTITY VERIFICATION COMPLETED USING TWO (2) IDENTIFIERS: Name and Date of confirmed by patient verbally. FALL SCREENING: Has the patient had 2 falls in the last year or 1 fall with injury or currently using an Ambulatory Assistive Device (Walker, Cane, Wheelchair, Crutches, etc.)? No PATIENT GENDER DATA: Female. status: : No status: N/A PATIENT RELEVANT IMPLANT DATA REVIEWED: Not Applicable PATIENT PRESENTS WITH AN IMPLANTABLE OR ATTACHED CLINICAL DIRECTOR: No RADIOLOGY DEPARTMENT: Bone Density PERIPHERAL IV DATA: Not applicable SIGNED BY: RT Nery(R) August 23, 2024 3:49 PM [facility] 08-23-2024 History of Present illness Narrative Radiology Service Progress Note PATIENT NAME: Rahel Ralph DATE OF SERVICE: August 23, 2024 TIME: 3:49 PM PATIENT IDENTITY VERIFICATION COMPLETED USING TWO (2) IDENTIFIERS: Name and Date of confirmed by patient verbally. FALL SCREENING: Has the patient had 2 falls in the last year or 1 fall with injury or currently using an Ambulatory Assistive Device (Walker, Cane, Wheelchair, Crutches, etc.)? No PATIENT GENDER DATA: Female. status: : No status: N/A PATIENT RELEVANT IMPLANT DATA REVIEWED: Not Applicable PATIENT PRESENTS WITH AN IMPLANTABLE OR ATTACHED CLINICAL DIRECTOR: No RADIOLOGY DEPARTMENT: Mammography PERIPHERAL IV DATA: Not applicable SIGNED BY: SOLOMON Gabriel) August 23, 2024 3:49 PM documented in this encounter [facility] 08-23-2024 Note HNO ID: [id number] Author: LIBRADO MELÉNDEZ RT (R) Service: Radiology Author Type: Technologist Type: Progress Notes Filed: 08/23/2024 15:49 Note Text: Radiology Service Progress Note PATIENT NAME: Rahel Ralph DATE OF SERVICE: August 23, 2024 TIME: 3:49 PM PATIENT IDENTITY VERIFICATION COMPLETED USING TWO (2) IDENTIFIERS: Name and Date of confirmed by patient verbally. FALL SCREENING: Has the patient had 2 falls in the last year or 1 fall with injury or currently using an Ambulatory Assistive Device (Walker, Cane, Wheelchair, Crutches, etc.)? No PATIENT GENDER DATA: Female. status: : No status: N/A PATIENT RELEVANT IMPLANT DATA REVIEWED: Not Applicable PATIENT PRESENTS WITH AN IMPLANTABLE OR ATTACHED CLINICAL DIRECTOR: No RADIOLOGY DEPARTMENT: Mammography PERIPHERAL IV DATA: Not applicable SIGNED BY: Librado Meléndez RT(R) August 23, 2024 3:49 PM [facility] 08-22-2024 History of Present illness Narrative RADIATION ONCOLOGY FOLLOW UP PATIENT: Rahel Ralph DATE OF SERVICE: 08/22/2024 : 1950 AGE: 73 y.o. 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 STAGE: cTis N0 M0, 0; pTis(DCIS) NX M0, 0 HISTORY OF PRESENT ILLNESS: Ms. Ralph is a 73-year-old female who was noted to have an abnormal screening mammogram on 07/29/21. Biopsy was recommended. Biopsy on 09/25/21 noted at least DCIS, grade 2 with papillary architecture. They noted findings were concerning for an encapsulated papillary carcinoma or a papillary type of 005. It was ER positive at greater than 95%. On 10/09/21 at [facility], Ms. Ralph underwent a right breast lumpectomy with AILEEN meat trimmer. She presented for postoperative radiation which completed 01/16/2022. She started Arimidex on 01/20/2022. This was changed to letrozole in March 2022 due to side effects. INTERVAL SINCE RADIATION: 2 1/2 years ? 12/10/21 - 01/16/22: 50.40/50.40 Gy to the R Breast in 28 fractions of 1.80 Gy using the 3D/Daily IGRT technique with 6 &10 MV over 37 days. INTERVAL HISTORY: Patient presents for follow-up today. From the breast standpoint, she is doing well. No new concerns. She is scheduled for her mammogram along with a bone density test tomorrow in [place]. She continues to use a moisturizing soap in the region. She is dealing with disc issues in her back. She is scheduled to have C-spine surgery next week at [facility]. She notes that later next year she will have a lower back surgery. She had to retire this year due to the symptoms. No respiratory or cardiac complaints. No swelling in extremities. No bladder issues. She notes some constipation but she is not as active as what she used to be which she feels contributes. She continues on the letrozole daily. She continues to follow with her other physicians. PAST MEDICAL HISTORY: Past Medical History: Diagnosis Date Reed esophagus Breast cancer (HCC) Discoid lupus Glaucoma Hypertension Macular degeneration PAST SURGICAL HISTORY: Past Surgical History: Procedure Laterality Date APPENDECTOMY N/A 1969 BREAST LUMPECTOMY Right BUNIONECTOMY Bilateral 09/23/2021 COLONOSCOPY 2012 INTRACAPSULAR CATARACT EXTRACTION Right 11/07/2019 TONSILLECTOMY (HISTORICAL) 1956 TUBAL LIGATION 1967 ALLERGIES: Allergies as of 08/22/2024 - Reviewed 08/22/2024 Allergen Reaction Noted Bactrim [sulfamethoxazole-trimethoprim] Rash 09/03/2023 MEDICATIONS: Current Outpatient Medications Medication Sig Dispense Refill b complex vitamins capsule Take 1 capsule by mouth daily. cholecalciferol (Vitamin D-3) 25 MCG (1000 UT) capsule Take 1 capsule by mouth in the morning. cyclobenzaprine (Flexeril) 5 MG tablet Take 5 mg by mouth 3 times daily as needed. famotidine (Pepcid) 40 MG tablet Take 40 mg by mouth in the morning. letrozole (Femara) 2.5 MG tablet Take 1 tablet (2.5 mg total) by mouth daily. Take with or without food. 90 tablet 3 losartan (Cozaar) 100 MG tablet Take 100 mg by mouth in the morning. Lumigan 0.01 % ophthalmic solution instill 1 (ONE) DROP IN BOTH EYES EVERY evening metoprolol tartrate (Lopressor) 25 MG tablet Take 25 mg by mouth 2 times daily. Multiple Vitamin (Multi-Vitamin) tablet Take 1 tablet by mouth in the morning. Multiple Vitamins-Minerals (ICAPS AREDS FORMULA PO) twice a day. pimecrolimus (Elidel) 1 % cream as needed. Probiotic Product (PROBIOTIC BLEND PO) Take 1 capsule by mouth daily. RIBOFLAVIN PO Take 2 capsules by mouth daily. triamcinolone (Kenalog) 0.1 % ointment Apply topically twice a day. UNABLE TO FIND Take 2 tablets by mouth daily. Med Name: Collatrim No current facility-administered medications for this encounter. REVIEW OF SYSTEMS: As above. Pain score- 0. KPS: 90 SUMMARY OF SIGNIFICANT X-RAY/LABORATORY FINDINGS: Mammogram on 08/19/2023 noted treatment changes on the right. Annual followup recommended. BMP on 06/24/2024 was within normal limits except for a sodium low at 134, chloride low at 93. Anion gap was borderline high at 16. eGFR was normal at 64. PHYSICAL EXAM: BP (!) 158/97 Pulse 84 Temp 98 F (36.7 C) Resp 20 Ht 5' 7 (1.702 m) Wt 168 lb 9.6 oz (76.5 kg) SpO2 98% BMI 26.41 kg/m /Pain Score: 0 - No pain /Fatigue Assessment: Able to perform daily activities with rest periods GENERAL: Awake, alert, oriented x3, no anxiety, dressed appropriately, appears of stated age. Ambulates without assistance. Speech pattern fluent. NECK: Symmetric. NODES: No supraclavicular, infraclavicular, or axillary adenopathy bilaterally. BREAST: Asymmetric. Right breast with the postsurgery changes. No suspicious mass in either breast. No nipple discharge. Mild hyperpigmented changes are noted in the treatment region. Otherwise the area is in very good condition. LUNGS: Clear to auscultation bilaterally. HEART: Regular in rhythm and rate, S1-S2 noted. ABDOMEN: Soft, nontender, no hepatosplenomegaly or suspicious mass. MUSCULOSKELETAL: No spine or posterior chest wall tenderness. Good range of motion in the shoulders. No gross arm edema evident bilaterally. No pedal edema or calf tenderness bilaterally. IMPRESSION: Rahel Ralph is a 73 y.o. female with history of right breast DCIS. I reviewed her epic record and radiology. Clinically she is without sign of recurrence. She is having her mammogram and bone density tomorrow. She continues to eat healthy and stay hydrated. She is scheduled for her spine surgery next week. She remains on the endocrine therapy daily. PLAN: Return to office in 1 year. Chary Gamez MD Total time: 24 minutes in chart review, lab/radiology evaluation/interpretation, patient exam, patient counseling and care coordination. The [facility] Department of Radiation Oncology is an Accredited Facility of the [employer] ([employer]). This document was completed utilizing speech recognition software. Grammatical errors, random word insertions, pronoun errors, and incomplete sentences are an occasional consequence of this system due to software limitations, ambient noise, and hardware issues. Any formal questions or concerns about the content, text or information contained within the body of this dictation should be directly addressed to the provider for clarification. documented in this encounter [facility] 08-22-2024 Miscellaneous Notes Encounter addended by: Nadira Lindsey RN on: 08/22/2024 2:34 PM Actions taken: Charge Capture section accepted documented in this encounter [facility] 08-22-2024 Note Encounter addended b y: Nadira Lindsey RN on: 08/22/2024 2:34 PM Actions taken: Charge Capture section accepted [facility] 08-22-2024 Note Encounter addended b y: Nadira Lindsey RN on: 08/22/2024 2:34 PM Actions taken: Charge Capture section accepted [facility] 08-22-2024 Nurse Note Patient here today for a follow up, she presents alone. She denies any pain currently. Patient reports skin at the breast is without issue or concern. Patient reports a good appetite and decreased energy level. Patient states she is going to have neck surgery this coming Wednesday and reports some inactivity due to the condition. Patient also reports some stress related to upcoming surgery. Patient still follows with Dr. Villanueva, Patient reports she is getting mammogram and DEXA scan on 08.23.24. Patient is still taking Letrozole. [facility] 08-22-2024 Nurse Note Patient here today for a follow up, she presents alone. She denies any pain currently. Patient reports skin at the breast is without issue or concern. Patient reports a good appetite and decreased energy level. Patient states she is going to have neck surgery this coming Wednesday and reports some inactivity due to the condition. Patient also reports some stress related to upcoming surgery. Patient still follows with Dr. Villanueva, Patient reports she is getting mammogram and DEXA scan on 08.23.24. Patient is still taking Letrozole. documented in this encounter [facility] 08-20-2024 Note HNO ID: [id number] Author: ZARA KEY MD Service: ? Author Type: Physician Type: Progress Notes Filed: 08/20/2024 13:17 Note Text: This encounter was opened in error. [facility] 07-19-2024 History of Present illness Narrative Hematology/Oncology Follow up Visit Diagnosis/Treatment Summary: 1) right breast DCIS grade II with an encapsulated papillary carcinoma (without definite invasion) s/p right lumpectomy on 10/09/21 at [facility]. DCIS spanning 18mm. [place] nodes were omitted. Margins negative. pTis cN0. ER+ >95% - post lumpectomy radiation therapy completed 01/16/22 - AI for 5 years recommended. Arimidex started 01/20/22 but changed to Letrozole in March 2022, which she is tolerating better. Interval History: Rahel Ralph is a 73 y.o. female who comes in today for routine follow up. She has no new breast concerns today and is tolerating Letrozole well, however reports that she is having neck surgery performed at [facility] in the near future. She is due for her mammogram and DEXA scans soon. She has no other complaints today and denies any fatigue, fevers, chills, recent infections, bleeding, blood in stools, headaches, vision changes, chest pain, shortness of breath, nausea, vomiting, diarrhea, constipation, abdominal pain, bone pain, weight loss, weakness, numbness, or tingling or changes in coordination or gait. Review of Systems Constitutional: Negative for appetite change, chills, diaphoresis, fatigue, fever and unexpected weight change. HENT: Negative for dental problem, mouth sores, nosebleeds, sneezing, sore throat, tinnitus, trouble swallowing and voice change. Eyes: Negative for photophobia, pain and visual disturbance. Respiratory: Negative for cough, shortness of breath and wheezing. Cardiovascular: Negative for chest pain, palpitations and leg swelling. Gastrointestinal: Negative for abdominal distention, abdominal pain, blood in stool, constipation, diarrhea, nausea and vomiting. Endocrine: Negative for cold intolerance and heat intolerance. Genitourinary: Negative for difficulty urinating, frequency, hematuria and urgency. Musculoskeletal: Positive for arthralgias and neck pain. Negative for back pain, gait problem and myalgias. Skin: Negative for pallor and rash. Allergic/Immunologic: Negative for immunocompromised state. Neurological: Negative for dizziness, syncope, weakness, light-headedness, numbness and headaches. Hematological: Negative for adenopathy. Does not bruise/bleed easily. Psychiatric/Behavioral: Negative for confusion and sleep disturbance. The patient is not nervous/anxious. All other systems reviewed and are negative. 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 Family History Problem Relation Name Age of Onset Cancer Mother Lung cancer Other (03103) Father Heart failure Father Diabetes Father Liver cancer Father Bladder Cancer Brother Other ([id number]) Maternal Grandmother Diabetes Maternal Grandmother Diabetes Paternal Grandmother Social History Tobacco Use Smoking status: Former Current packs/day: 0.00 Types: Cigarettes Quit date: 09/06/2011 Years since quittin.8 Smokeless tobacco: Never Substance Use Topics Alcohol use: Yes Alcohol/week: 14.0 standard drinks of alcohol Types: 14 Shots of liquor per week Allergies Allergen Reactions Bactrim [Sulfamethoxazole-Trimethoprim] Rash Current Outpatient Medications Medication Sig Dispense Refill b complex vitamins capsule Take 1 capsule by mouth daily. cholecalciferol (Vitamin D-3) 25 MCG (1000 UT) capsule Take 1 capsule by mouth in the morning. cyclobenzaprine (Flexeril) 5 MG tablet Take 5 mg by mouth 3 times daily as needed. famotidine (Pepcid) 40 MG tablet Take 40 mg by mouth in the morning. letrozole (Femara) 2.5 MG tablet Take 1 tablet (2.5 mg total) by mouth daily. Take with or without food. 90 tablet 3 losartan (Cozaar) 100 MG tablet Take 100 mg by mouth in the morning. Lumigan 0.01 % ophthalmic solution instill 1 (ONE) DROP IN BOTH EYES EVERY evening metoprolol tartrate (Lopressor) 25 MG tablet Take 25 mg by mouth 2 times daily. Multiple Vitamin (Multi-Vitamin) tablet Take 1 tablet by mouth in the morning. Multiple Vitamins-Minerals (ICAPS AREDS FORMULA PO) twice a day. pimecrolimus (Elidel) 1 % cream as needed. Probiotic Product (PROBIOTIC BLEND PO) Take 1 capsule by mouth daily. RIBOFLAVIN PO Take 2 capsules by mouth daily. triamcinolone (Kenalog) 0.1 % ointment Apply topically twice a day. UNABLE TO FIND Take 2 tablets by mouth daily. Med Name: Collatrim No current facility-administered medications for this visit. Blood pressure (!) 142/91, pulse 85, temperature 36.9 C (98.4 F), temperature source Temporal, height 1.676 m (5' 6), weight 75.8 kg (167 lb), SpO2 97%. ECO Physical Exam Vitals and nursing note reviewed. Constitutional: General: She is not in acute distress. Appearance: Normal appearance. She is not ill-appearing. HENT: Head: Normocephalic and atraumatic. Nose: Nose normal. Mouth/Throat: Pharynx: Oropharynx is clear. No oropharyngeal exudate or posterior oropharyngeal erythema. Eyes: General: No scleral icterus. Extraocular Movements: Extraocular movements intact. Conjunctiva/sclera: Conjunctivae normal. Pupils: Pupils are equal, round, and reactive to light. Cardiovascular: Rate and Rhythm: Normal rate and regular rhythm. Heart sounds: Normal heart sounds. No murmur heard. Pulmonary: Effort: Pulmonary effort is normal. No respiratory distress. Breath sounds: Normal breath sounds. No wheezing. Abdominal: General: Abdomen is flat. Bowel sounds are normal. There is no distension. Palpations: Abdomen is soft. There is no mass. Tenderness: There is no abdominal tenderness. There is no guarding. Musculoskeletal: General: No swelling or tenderness. Normal range of motion. Cervical back: Normal range of motion and neck supple. Right lower leg: No edema. Left lower leg: No edema. Lymphadenopathy: Cervical: No cervical adenopathy. Skin: General: Skin is warm and dry. Findings: No bruising or rash. Neurological: General: No focal deficit present. Mental Status: She is alert and oriented to person, place, and time. Mental status is at baseline. Psychiatric: Mood and Affect: Mood normal. Thought Content: Thought content normal. Right breast: no masses noted Left breast: no masses noted No bilateral axillary or supraclavicular adenopathy is noted. No visits with results within 1 Month(s) from this visit. Latest known visit with results is: No results found for any previous visit. Imaging Results: Bilateral kita diag with bartolo 08/20/23 at [facility] IMPRESSION: BENIGN FINDING There is no mammographic evidence of malignancy. A 1 year screening mammogram is recommended. Lindsay victoria/claire:08/20/2023 11:22:38 - I have reviewed all pertinent laboratory, imaging, and pathology results with the patient and/or family members present. Assessment/Plan: Diagnosis Plan 1. Ductal carcinoma in situ (DCIS) of right breast Bilateral screening mammogram with tomosynthesis letrozole (Femara) 2.5 MG tablet 2. longterm current use of aromatase inhibitor DEXA bone density axial skeleton 1) Stage 0 right breast cancer - See details of presentation above - Today, we again reviewed the diagnosis, staging, natural history, prognosis, and treatment course to date for her right sided ER+ DCIS. NCCN guidelines were reviewed. Treatment intent is curative. - There is no evidence of disease recurrence on exam today. - Five years of aromatase inhibitor with Letrozole 2.5mg PO daily is recommended (started January 2022, tentative end date January 2027). Potential side effects and anticipated benefits of Letrozole were reviewed with the patient and she agreed to proceed. See refill provided today. - she will continue with annual mammograms. Due Aug 2024 at [facility]. See orders. - signs and symptoms of breast cancer recurrence were reviewed with the patient and she was instructed to call with any concerns. She was instructed on monthly self breast exams. 2) bone health - DEXA scan 03/07/20 at [facility] showed normal bone density - DEXA 03/10/22 at [facility] normal - see orders for next DEXA provided today - calcium and vitamin d supplements recommended All questions were answered to the satisfaction of the patient and/or family. Return to office in 1 year or sooner if worrisome signs/symptoms arise. Rex Villanueva DO Hematology/Medical Oncology documented in this encounter [facility] 07-04-2024 Telephone encounter Note Clearance scanned in from Dr. Brown placed in Dr. Valente colon to be reviewed. Ashley Rodriguez July 04, 2024 10:29 AM [facility] 07-04-2024 Miscellaneous Notes Clearance scanned in from Dr. Brown placed in Dr. Valente colon to be reviewed. Ashley Rodriguez July 04, 2024 10:29 AM documented in this encounter [facility] 07-04-2024 Telephone encounter Note Clearance scanned in from Dr. Lewis placed in Dr. joesph Rodriguez July 04, 2024 10:20 AM [facility] 07-04-2024 Miscellaneous Notes Clearance scanned in from Dr. Lewis placed in Dr. joesph Rodriguez July 04, 2024 10:20 AM documented in this encounter [facility] 07-04-2024 Telephone encounter Note Spoke with Rahel Da Silva January on July 04, 2024. Informed of results / instructions as stated above. Patient voiced understanding at this time. Patient requested clearance to her home health outreach coordinator based on testing. Keturah Delarosa LPN [facility] 07-04-2024 Miscellaneous Notes Spoke with Rahel Da Silva January on July 04, 2024. Informed of results / instructions as stated above. Patient voiced understanding at this time. Patient requested clearance to her home health outreach coordinator based on testing. Keturah Delarosa LPN Left message for Rahel Da Silva May to call [facility] for test results. [facility] phone number provided. Violetta Xavier LPN ----- Message from Luis A Victor MD sent at 07/03/2024 10:50 PM EDT ----- Normal EKG and nuclear portion of stress test documented in this encounter [facility] 07-04-2024 Telephone encounter Note Left message for Rahel Da Silva May to call [facility] for test results. [facility] phone number provided. Violetta Xavier LPN [facility] 07-04-2024 Telephone encounter Note ----- Message from Luis A Victor MD sent at 07/03/2024 10:50 PM EDT ----- Normal EKG and nuclear portion of stress test [facility] 07-03-2024 History of Present illness Narrative RADIOLOGY SERVICE PROGRESS NOTE SERVICE DATE: 07/03/2024 SERVICE TIME: 2:07 PM PATIENT IDENTITY VERIFICATION COMPLETED USING TWO (2) STANDARD IDENTIFIERS: Name and Date of confirmed by patient verbally and Name and Date of confirmed by identification band FALL SCREENING: Has the patient had 2 falls in the last year or 1 fall with injury or currently using an Ambulatory Assistive Device (Walker, Cane, Wheelchair, Crutches, etc.)? No PATIENT GENDER DATA: .female : No ALLERGIES: Reviewed and unchanged MEDICATIONS REVIEWED: Not applicable PATIENT RELEVANT IMPLANT DATA REVIEWED: Not Applicable PATIENT PRESENTS WITH AN IMPLANTABLE OR ATTACHED CLINICAL DIRECTOR: No CREATININE: Creatinine Date Value Ref Range Status 06/24/2024 0.94 0.58 - 0.96 mg/dL Final 12/22/2023 0.92 0.58 - 0.96 mg/dL Final 08/06/2023 0.86 0.58 - 0.96 mg/dL Final Estimated Glomerular Filtration Rate Date Value Ref Range Status 06/24/2024 64 >=60 mL/min/1.73m Final Comment: Estimated Glomerular Filtration Rate (eGFR) is calculated using the 2020 CKD-EPI creatinine equation. This equation utilizes serum creatinine, sex, and age as parameters. The creatinine assay has traceable calibration to isotope dilution-mass spectrometry. Refer to KDIGO guidelines for clinical interpretation. In patients with unstable renal function, e.g. those with acute kidney injury, the eGFR may not accurately reflect actual GFR. eGFR- Date Value Ref Range Status 10/04/2021 >60 Final P.O.C.T. RESULTS: N/A July 03, [address] PERFORMED: No IV SITE: Ambulatory: A peripheral IV was started in the Left antecubital site with a Angio cath: 22 gauge. POST EXAM PIV STATUS: Discontinued PROCEDURE TYPE: NM Stress: 9.2 mCi [id number] was administered IV for Rest Imaging at 12:59 by C. 28.8 mCi [id number] was administered IV for Stress Imaging at 13:54 by J. PATIENT DISCHARGED TO: Ambulatory patient, left [place] department area. A Diagnostic radioactive procedure has taken place, with no further precautions necessary other than routine body substance precautions. More information regarding radiation safety can be found using this link: [email or web address] [email or web address] SIGNATURE: SOLOMON Santacruz) PATIENT NAME: Rahel Da Silva January DATE: July 03, 2024 TIME: 2:07 PM PAGER/CONTACT #: documented in this encounter [facility] 07-03-2024 Miscellaneous Notes Normal EKG and nuclear portion of stress test documented in this encounter [facility] 07-03-2024 Note HNO ID: [id number] Author: VASQUEZ PRECIADO RT(R) Service: Nuclear Medicine Author Type: Technologist Type: Progress Notes Filed: 07/03/2024 14:08 Note Text: RADIOLOGY SERVICE PROGRESS NOTE SERVICE DATE: 07/03/2024 SERVICE TIME: 2:07 PM PATIENT IDENTITY VERIFICATION COMPLETED USING TWO (2) STANDARD IDENTIFIERS: Name and Date of confirmed by patient verbally and Name and Date of confirmed by identification band FALL SCREENING: Has the patient had 2 falls in the last year or 1 fall with injury or currently using an Ambulatory Assistive Device (Walker, Cane, Wheelchair, Crutches, etc.)? No PATIENT GENDER DATA: .female : No ALLERGIES: Reviewed and unchanged MEDICATIONS REVIEWED: Not applicable PATIENT RELEVANT IMPLANT DATA REVIEWED: Not Applicable PATIENT PRESENTS WITH AN IMPLANTABLE OR ATTACHED CLINICAL DIRECTOR: No CREATININE: Creatinine Date Value Ref Range Status 06/24/2024 0.94 0.58 - 0.96 mg/dL Final 12/22/2023 0.92 0.58 - 0.96 mg/dL Final 08/06/2023 0.86 0.58 - 0.96 mg/dL Final Estimated Glomerular Filtration Rate Date Value Ref Range Status 06/24/2024 64 >=60 mL/min/1.73m? Final Comment: Estimated Glomerular Filtration Rate (eGFR) is calculated using the 2020 CKD-EPI creatinine equation. This equation utilizes serum creatinine, sex, and age as parameters. The creatinine assay has traceable calibration to isotope dilution-mass spectrometry. Refer to KDIGO guidelines for clinical interpretation. In patients with unstable renal function, e.g. those with acute kidney injury, the eGFR may not accurately reflect actual GFR. eGFR- Date Value Ref Range Status 10/04/2021 >60 Final P.O.C.T. RESULTS: N/A July 03, [address] PERFORMED: No IV SITE: Ambulatory: A peripheral IV was started in the Left antecubital site with a Angio cath: 22 gauge. POST EXAM PIV STATUS: Discontinued PROCEDURE TYPE: NM Stress: 9.2 mCi [id number] was administered IV for Rest Imaging at 12:59 by [facility]. 28.8 mCi [id number] was administered IV for Stress Imaging at 13:54 by J. PATIENT DISCHARGED TO: Ambulatory patient, left [place] department area. A Diagnostic radioactive procedure has taken place, with no further precautions necessary other than routine body substance precautions. More information regarding radiation safety can be found using this link: [email or web address] [email or web address] 20Diagnostic%20Nuclear%20Medicine %20Procedures.pdf SIGNATURE: RT Neeta(R) PATIENT NAME: Rahel Da Silva January DATE: July 03, 2024 TIME: 2:07 PM PAGER/CONTACT #: [facility] 07-03-2024 Progress note Formatting of t his note might be different from the original. Normal EKG and nuclear portion of stress test [facility] 06-30-2024 Telephone encounter Note Left message regarding reminder and instructions for stress test on Wednesday. This included where to check in, length of test and no caffeine for 12 hours prior to test. [facility] 06-30-2024 Miscellaneous Notes Left message regarding reminder and instructions for stress test on Wednesday. This included where to check in, length of test and no caffeine for 12 hours prior to test. documented in this encounter [facility] 06-26-2024 Telephone encounter Note Spoke with Rahel Da Silva January on June 26, 2024. Informed of results / instructions as stated above. Patient voiced understanding at this time. Keturah Delarosa LPN [facility] 06-26-2024 Miscellaneous Notes Spoke with Rahel Da Silva January on June 26, 2024. Informed of results / instructions as stated above. Patient voiced understanding at this time. Keturah Delarosa LPN Voicemail msg left for patient to return call to [facility] to review test results. Office phone number provided. Eugenie North LPN ----- Message from Luis A Victor MD sent at 06/25/2024 6:09 PM EDT ----- LDL at goal. Diet and life style modifications. Cr looks ok documented in this encounter [facility] 06-26-2024 Telephone encounter Note Voicemail msg left for patient to return call to [facility] to review test results. Office phone number provided. Eugenie North LPN [facility] 06-26-2024 Telephone encounter Note ----- Message from Luis A Victor MD sent at 06/25/2024 6:09 PM EDT ----- LDL at goal. Diet and life style modifications. Cr looks ok [facility] 06-22-2024 Instructions Luis A Victor MD - 06/22/2024 11:25 AM EDT Heart Disease in Women Is heart disease a problem for women? Heart disease is the leading cause of of [place] women. More women from heart disease than from cancer. A heart attack can happen when there are problems with the blood vessels that bring blood to the heart (the coronary arteries). For example, fatty deposits called plaque may build up in the coronary arteries and make them narrower. The narrowing decreases blood flow to the heart. Plaque also increases the chance that blood clots may form and block a blood vessel, which can cause a heart attack or stroke. In the first year after a heart attack, women have an increased risk of . In the first 6 years after a heart attack, they also have a higher risk of a second heart attack. Women are at high risk often because they are older at the time of the heart attack and have other medical problems. Not everyone has the same symptoms. The most common symptoms of a heart attack include: Chest pain or pressure, squeezing, or fullness in the center of your chest that lasts more than a few minutes, or goes away and comes back (may feel like indigestion or heartburn) Pain or discomfort in one or both arms or shoulders, or in your back, neck, jaw, or stomach Trouble breathing Breaking out in a cold sweat for no known reason Along with these symptoms, you may also feel very tired, faint, or be sick to your stomach. Sometimes you can be having a heart attack and not know it. Many women have chest pain or pressure, but sometimes symptoms in women are different from men s symptoms. Or women may have additional symptoms, such as: Unexplained anxiety and nervousness Swelling of the ankles or lower legs Because they may not feel the typical pain in the left side of their chest, many women may ignore the symptoms of a heart attack. Call 911 for emergency help right away if you have these symptoms. Do not drive yourself to the hospital. Immediate emergency care improves your chances of survival and may help avoid damage to your heart. How can women lower their risk for heart disease? If you have high blood pressure, carefully follow your healthcare provider's instructions for keeping it under control. If you are a smoker, stop smoking. Try to keep a healthy weight. If you are overweight, talk to your provider about ways to lose weight. Eat a healthy diet that includes: ?Avoiding salty foods and not adding salt to food ?Increasing fiber, fruits, and vegetables ?Avoiding foods high in fat, cholesterol, and sugar Exercise according to your healthcare provider's instructions. Get enough rest and learn to use relaxation methods to help reduce stress. Treat and control medical conditions such as diabetes and high cholesterol. If you are taking hormone therapy, you and your healthcare provider should discuss the risks and benefits. Hormone therapy may increase the risk for heart disease or stroke. Talk with your provider about taking aspirin. Low-dose aspirin therapy reduces the risk of stroke for women. But it helps to lower a woman s risk of heart attack and other heart problems only if she is 65 or older. Make sure that your provider knows about any other medicines you are taking. If you decide you need to make changes in the way you live, you probably won't be able to turn your life around all at once. Try to develop healthy habits that incorporate your lifestyle goals. If you do, you will greatly decrease your chances for developing heart disease. You can get more information from: [place] [facility] [id number]-[id number]-[email or web address] ( )www.heart.org Developed by [employer]. Published by [employer]. Copyright 2014 [employer] and/or one of its subsidiaries. All rights reserved. documented in this encounter [facility] 06-22-2024 History of Present illness Narrative PRIMARY CARE PHYSICIAN: Fariba Truong MD [address] [place] [id number] REFERRING PHYSICIAN: Fariba Truong MD [address] [place] [id number] CHIEF COMPLAINT: Patient presents with: Follow Up HPI: Ms Ralph has a history of hypertension. She used to be a long time smoker, and quit smoking in 2014, but switched to electronic cigarettes around 2014. She mentioned that she has not had any nicotine in her electronic cigarettes since 09/25. She drinks about 4 drinks of vodka a day. She does not have a family history of pulmonary hypertension or sudden .She saw Dr Truong for a routine visit in 2018, and an echo was ordered to follow up on pulmonary hypertension. In the past, she was told that she had mild pulmonary hypertension. On her echo in 2016, there was no evidence of pulmonary hypertension, but the appearance of the right-sided chambers suggested possible underestimation of the right ventricular systolic pressures. The tricuspid annular excursion was normal at 2.3 cm. On her current echo in 2018, the tricuspid annular excursion was still normal at 2.5 cm. In 11/26, she developed issues with tachycardia, and hypertension. Her heart rates were in the 100's, and her blood pressures were in the 150's/100's. I added Lopressor 25 mg BID to her medical regime. Her echo in 03/28 revealed normal LV size, systolic function . His LVEF was 63 %. No significant valvular abnormalities were evident. He had normal RV size, systolic function. His RV systolic pressure was 24 mm Hg. She returns for a follow-up visit today. She is still vaping, but mentioned that she doesn't use nicotine in the e cigarettes. She is contemplating thoracic surgery ( laminectomy, spinal fusion ) by Dr Delbert Gibson at [place]. 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 Clinically, she denies feeling any chest pain, but does admit to exertional shortness of breath. She denies lightheadedness, dizziness, palpitations. She has not noticed any lower extremity edema, paroxysmal nocturnal dyspnea, orthopnea. 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 pressure is elevated Hypertension Osteoporosis Plaque psoriasis PAST SURGICAL HISTORY Procedure Laterality Date APPENDECTOMY BREAST LUMPECTOMY HX Right 10/09/2021 BUNIONECTOMY, LAPIDUS-TYPE Bilateral 1970 BX OF BREAST; INCISIONAL Right 09/23/2021 CATARACT EXTRACTION HX Right 11/07/2019 COLONOSCOPY FLX DX W/COLLJ SPEC WHEN PFRMD 2012 Colonoscopy COLONOSCOPY SCREENING 11/01/2020 DERM PATH BIOPSY PC 2017 chest TONSILLECTOMY PRIMARY/SECONDARY <AGE 12 7 Tonsillectomy TUBAL LIGATION, 1968 SOCIAL HISTORY Social History Tobacco Use Smoking status: Former Current packs/day: 0.00 Types: Cigarettes Start date: 09/06/1962 Quit date: 12/26/2013 Years since quittin.4 Smokeless tobacco: Never Tobacco comments: date: 1962; Stop date: 2013 e-cigarettes Vapes now (06/01/2019) Vaping Use Vaping status: current everyday user Substances: Flavoring Substance Use Topics Alcohol use: Yes Alcohol/week: 1.0 standard drink of alcohol Types: 1 Glasses of wine per week Comment: Social - Type: hard liquor; Has 5 drink/day Drug use: Never FAMILY HISTORY Problem Relation Age of Onset other (Lung CA) Mother Ischemic Heart Disease Father 60 other (DM) Father other (Gallbladder CA) Father other (Liver) Father other (M.I.) Father Cancer Brother bladder - orange enduced Diabetes Maternal Grandmother Coronary Artery Disease Maternal Grandmother other (no colon cancer) Maternal Grandmother other (Diabetes Mellitus) Maternal Grandmother other (DM) Paternal Grandmother ALLERGIES: ALLERGIES Allergen Reactions Sulfamethoxazole-Tr* Rash MEDICATIONS: metoprolol tartrate, short acting, (LOPRESSOR) 25 mg tablet take 1 tablet by mouth twice daily losartan (COZAAR) 100 mg tablet Take 1 tablet by mouth once daily. HYDROcodone-acetaminophen (NORCO) 5-325 mg per tablet Take 1 tablet by mouth every 6 hours as needed for pain. famotidine (PEPCID) 40 mg tablet Take 40 mg by mouth once daily. letrozole (FEMARA) 2.5 mg tablet Take 2.5 mg by mouth once daily. B2/vits A,C,E/lut/zeaxanth/min (ICAPS ORAL) Take by mouth. Cholecalciferol, Vitamin D3, 25 mcg (1,000 unit) cap Take 1 capsule by mouth once daily. Vitamin D3 L.acid/L.casei/B.bif/B.rudolph/FOS (PROBIOTIC BLEND ORAL) Take by mouth. multivitamin tablet Take 1 tablet by mouth once daily. MEDICATION, NON-DATABASE Take 2 tablets by mouth once daily. ambrotose AO LUMIGAN 0.01 % drop ophthalmic drops Use 1 Drop in both eyes daily at bedtime. vitamin b complex capsule Take 2 capsules by mouth once daily. esomeprazole magnesium 22.3 mg cpDR Take 1 capsule by mouth once daily. LECITHIN ORAL Take 2 capsules by mouth once daily. MILK THISTLE ORAL Take 2 capsules by mouth once daily. PHYSICAL EXAMINATION: BP 126/78 Pulse 78 Resp 18 Ht 5' 7 (1.70m) Wt 163 lb (73.9kg) SpO2 100% BMI 25.52 kg/(m^2). General: Well appearing, in no acute distress, speaking in complete sentences., Well appearing. Psych: Normal Affect Eyes: No subconjunctival hemorrhage Skin: No rash, bruising Oropharynx: Mucous membranes normal Neck: no jugular venous distention, no carotid bruits. Lymph: No cervical lymphadenopathy Lungs: Clear to auscultation bilaterally, no wheezing or rhonchi. Heart: S1, S2 normal, faint 1/6 pansystolic murmur at the lower left sternal border Extremities: No peripheral edema Neuro: Grossly nonfocal ASSESSMENT/PLAN: 1. Mild pulmonary hypertension (HCC) - ICD9: 416.8, ICD10: I27.20 (primary diagnosis) As described above, her last 2 echocardiograms in 2017 and 2019 have not revealed any significant pulmonary hypertension. Clinically, she does not have any symptoms of primary hypertension including dyspnea, symptoms of right heart failure. The physical exam did not support these findings either. I explained to her about pulmonary hypertension in detail, and mentioned that if she does have any primary hypertension, it is likely WHO class III secondary to chronic smoking. In the absence of symptoms, echocardiographic findings, I do not suggest proceeding with a right heart catheterization. Additionally, her echocardiograms since 2017 have not suggested any pulmonary hypertension. I doubt that this is a true diagnosis for her at this point. Her blood pressures were somewhat elevated. I did increase her losartan to 75 mg daily, as this would potentially prevent her from developing WHO class II pulmonary hypertension down the line. I did ask her to follow-up with her PCP on a regular basis. Echocardiograms may be performed every 2 to 3 years, and if there is a suggestion of elevated pulmonary pressures, I am happy to reevaluate her at that time. For now, she does not need a regular follow-up with cardiology, since she does not have pulmonary hypertension. I did strongly encourage her to give up electronic cigarettes completely, although she did not think that she would successfully quit completely. 2. Dyspnea on exertion - ICD 10: R06.0 Her 2D echocardiogram did not indicate any evidence of pulmonary hypertension. Her right ventricle has also been normal in size, systolic function. Given her history of smoking, and upcoming surgery, I scheduled her for a nuclear stress test. 3. Essential hypertension - ICD9: 401.9, ICD10: I10 - Good control. Continue losartan, metoprolol. Her LDL was at goal based on her lipid panel in 2020. She has regular lipid panel checks with her primary care provider. Continue the same. - Recommended regular aerobic exercise. - Recommend home blood pressure monitoring, to bring results in on next visit - Goal of BP <130/80 4. Alcohol abuse - ICD9: 305.00, ICD10: F10.10 Strongly counseled her to cut down on alcohol intake, and quit completely if possible 5. Electronic cigarette use - ICD9: 305.1, ICD10: Z78.9 - Cessation encouraged. She said that she has cut down smoking quite a bit, and wants to quit completely sometime the next year. She did mention that her boyfriend also wants to do the same. - Physiologic and physical aspects of tobacco addiction as well as strategies for quitting were discussed. - Counseling was given focusing on the harmful effects of this addiction especially given the patient's medical condition(s) which will be worsened because of the chemicals in tobacco. 6. Reed's esophagus with dysplasia - ICD9: 530.85, ICD10: K22.719 Management per her primary provider. 7. Tachycardia - ICD-10: R0.0 Her workup was not indicated atrial fibrillation/ventricular tachycardia. She mostly had sinus tachycardia. She has done well since the addition of metoprolol tartrate. Continue the same. Luis A Victor MD Greater than 50% of the time was spent in counseling/coordination of care. Total time 26 minutes I have confirmed and edited as necessary, the Past, Family, Social History and Review Of Systems, obtained by my office staff. Elements of history of present illness, assessment , and plan were copied from my last office note, but have been updated where appropriate; and all reflect current medical decision making from TODAY . Physical exam listed was also completed in entirety today and is unchanged from my last office note dated above, except where noted. The above note was partially created using a dictation recognition software. A reasonable attempt has been made to correct any errors. documented in this encounter [facility] 06-07-2024 Miscellaneous Notes Radiology Service Progress Note PATIENT NAME: Rahel Ralph DATE OF SERVICE: June 07, 2024 TIME: 4:07 PM PATIENT IDENTITY VERIFICATION COMPLETED USING TWO (2) IDENTIFIERS: Name and Date of confirmed by patient verbally. FALL SCREENING: Has the patient had 2 falls in the last year or 1 fall with injury or currently using an Ambulatory Assistive Device (Walker, Cane, Wheelchair, Crutches, etc.)? No PATIENT GENDER DATA: Female. status: : No status: NO. PATIENT RELEVANT IMPLANT DATA REVIEWED: Yes PATIENT PRESENTS WITH AN IMPLANTABLE OR ATTACHED CLINICAL DIRECTOR: No RADIOLOGY DEPARTMENT: MR; Exam(s) Completed: Spine: Cervical spine PERIPHERAL IV DATA: Not applicable SIGNED BY: Lana Martin/[facility] June 07, 2024 4:07 PM documented in this encounter [facility] 06-07-2024 Progress note Formatting of t his note might be different from the original. Radiology Service Progress Note PATIENT NAME: Rahel Ralph DATE OF SERVICE: June 07, 2024 TIME: 4:07 PM PATIENT IDENTITY VERIFICATION COMPLETED USING TWO (2) IDENTIFIERS: Name and Date of confirmed by patient verbally. FALL SCREENING: Has the patient had 2 falls in the last year or 1 fall with injury or currently using an Ambulatory Assistive Device (Walker, Cane, Wheelchair, Crutches, etc.)? No PATIENT GENDER DATA: Female. status: : No status: NO. PATIENT RELEVANT IMPLANT DATA REVIEWED: Yes PATIENT PRESENTS WITH AN IMPLANTABLE OR ATTACHED CLINICAL DIRECTOR: No RADIOLOGY DEPARTMENT: MR; Exam(s) Completed: Spine: Cervical spine PERIPHERAL IV DATA: Not applicable SIGNED BY: Lana Martin/[facility] June 07, 2024 4:07 PM [facility] 04-06-2024 Telephone encounter Note Patient's request for medication is as follows: Requested Prescriptions Pending Prescriptions Disp Refills metoprolol tartrate, short acting, (LOPRESSOR) 25 mg tablet [Pharmacy Med Name: metoprolol tartrate 25 mg tablet] 180 tablet 3 Sig: take 1 tablet by mouth twice daily Last seen 03/18/2023. Next visit 06/22/2024. Prescription(s) as above. Please process accordingly. Eugenie North LPN [facility] 04-06-2024 Miscellaneous Notes Patient's request for medication is as follows: Requested Prescriptions Pending Prescriptions Disp Refills metoprolol tartrate, short acting, (LOPRESSOR) 25 mg tablet [Pharmacy Med Name: metoprolol tartrate 25 mg tablet] 180 tablet 3 Sig: take 1 tablet by mouth twice daily Last seen 03/18/2023. Next visit 06/22/2024. Prescription(s) as above. Please process accordingly. Eugenie North LPN documented in this encounter [facility] 12-10-2023 Miscellaneous Notes Patient's request for medication is as follows: Requested Prescriptions Pending Prescriptions Disp Refills losartan (COZAAR) 100 mg tablet 90 tablet 3 Sig: Take 1 tablet by mouth once daily. Prescription(s) as above. Please process accordingly. Ira Mcneill RN documented in this encounter [facility] 09-03-2023 History of Present illness Narrative RADIATION ONCOLOGY FOLLOW UP PATIENT: Rahel Ralph DATE OF SERVICE: 09/03/2023 : 1950 AGE: 72 y.o. 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 STAGE: cTis N0 M0, 0; pTis(DCIS) NX M0, 0 HISTORY OF PRESENT ILLNESS: Ms. Ralph is a 72-year-old female who was noted to have an abnormal screening mammogram on 07/29/21. Biopsy was recommended. Biopsy on 09/25/21 noted at least DCIS, grade 2 with papillary architecture. They noted findings were concerning for an encapsulated papillary carcinoma or a papillary type of 005. It was ER positive at greater than 95%. On 10/09/21 at [facility], Ms. Ralph underwent a right breast lumpectomy with AILEEN meat trimmer. She presented for postoperative radiation which completed 01/16/2022. She started Arimidex on 01/20/2022. This was changed to letrozole in March 2022 due to side effects. INTERVAL SINCE RADIATION: 1 1/2 years ? 12/10/21 - 01/16/22: 50.40/50.40 Gy to the R Breast in 28 fractions of 1.80 Gy using the 3D/Daily IGRT technique with 6 &10 MV over 37 days. INTERVAL HISTORY: The patient returns for follow-up today. She is doing well. She is starting to semiretirement today noting that she will be able working 2 days a week. Appetite and energy level are good. No problems with the breast area. She is on the letrozole daily. No respiratory or cardiac complaints. No swelling in the extremities. She continues her follow-up with her surgeon and medical oncologist. She is following with her workforce management analyst. She is up-to-date with mammography. PAST MEDICAL HISTORY: Past Medical History: Diagnosis Date Reed esophagus Breast cancer (HCC) Discoid lupus Glaucoma Hypertension Macular degeneration PAST SURGICAL HISTORY: Past Surgical History: Procedure Laterality Date APPENDECTOMY N/A 1970 BREAST LUMPECTOMY Right BUNIONECTOMY Bilateral 09/23/2021 COLONOSCOPY 2012 INTRACAPSULAR CATARACT EXTRACTION Right 11/07/2019 TONSILLECTOMY (HISTORICAL) 1956 TUBAL LIGATION 1967 ALLERGIES: Allergies as of 09/03/2023 - Reviewed 09/03/2023 Allergen Reaction Noted Bactrim [sulfamethoxazole-trimethoprim] Rash 09/03/2023 MEDICATIONS: Current Outpatient Medications Medication Sig Dispense Refill b complex vitamins capsule Take 1 capsule by mouth daily. cholecalciferol (Vitamin D-3) 25 MCG (1000 UT) capsule Take 1 capsule by mouth in the morning. cyclobenzaprine (Flexeril) 5 MG tablet Take 5 mg by mouth 3 times daily as needed. famotidine (Pepcid) 40 MG tablet Take 40 mg by mouth in the morning. letrozole (Femara) 2.5 MG tablet Take 1 tablet (2.5 mg total) by mouth daily. Take with or without food. 90 tablet 3 losartan (Cozaar) 100 MG tablet Take 100 mg by mouth in the morning. Lumigan 0.01 % ophthalmic solution instill 1 (ONE) DROP IN BOTH EYES EVERY evening metoprolol tartrate (Lopressor) 25 MG tablet Take 25 mg by mouth 2 times daily. Multiple Vitamin (Multi-Vitamin) tablet Take 1 tablet by mouth in the morning. Multiple Vitamins-Minerals (ICAPS AREDS FORMULA PO) twice a day. pimecrolimus (Elidel) 1 % cream as needed. Probiotic Product (PROBIOTIC BLEND PO) Take 1 capsule by mouth daily. RIBOFLAVIN PO Take 2 capsules by mouth daily. triamcinolone (Kenalog) 0.1 % ointment Apply topically twice a day. UNABLE TO FIND Take 2 tablets by mouth daily. Med Name: Collatrim No current facility-administered medications for this encounter. REVIEW OF SYSTEMS: As above. Pain score 0. KPS: 100 SUMMARY OF SIGNIFICIANT X-RAY/LABORATORY FINDINGS: CT for planning on 11/27/2021 noted the surgical changes in the right breast measuring 5.3 x 3.9 cm. Arthritic changes noted in the spine region. Mammogram on 08/03/2022 noted treatment related changes. Annual follow-up recommended. Mammogram on 08/19/2023 noted treatment related changes. Annual follow-up recommended. Blood count on 08/06/2023 showed a normal white count of 7.08, hemoglobin of 12.4 and platelet count of 240,000. BMP on the same date showed an elevated glucose of 120, sodium decreased to 126, chloride decreased of 85. Repeat of the electrolytes on 08/14/2023 noted a sodium of 132 and a chloride of 93. PHYSICAL EXAM: BP (!) 140/84 Pulse 88 Temp 97.1 F (36.2 C) Resp 16 Wt 161 lb 9.6 oz (73.3 kg) BMI 26.08 kg/m /Pain Score: 0 - No pain /Fatigue Assessment: Able to perform daily activities GENERAL: Awake, alert, oriented x3, no anxiety, dressed appropriately, appears of stated age. Ambulates without assistance. Speech pattern fluent. NECK: Symmetric. NODES: No supraclavicular, infraclavicular, or axillary adenopathy bilaterally. BREAST: Asymmetric. Right breast with the postsurgery changes. The changes continue to subside over time. No suspicious mass in either breast. No nipple discharge. Mild hyperpigmented changes are noted in the treatment region. Otherwise the area is in very good condition. LUNGS: Clear to auscultation bilaterally. HEART: Regular in rhythm and rate, S1-S2 noted. ABDOMEN: Soft, nontender, no hepatosplenomegaly or suspicious mass. MUSCULOSKELETAL: No spine or posterior chest wall tenderness. Good range of motion in the shoulders. No gross arm edema evident bilaterally. No pedal edema or calf tenderness bilaterally. IMPRESSION: Rahel Ralph is a 72 y.o. female with history of right breast DCIS. Clinically she is doing well without sign of recurrence. She continues to be very active, eating healthy and staying hydrated. She is on the endocrine therapy regularly. She is up-to-date with mammography. PLAN: Return to office in 1 year. Chary Gamez MD [facility] Department of Radiation Oncology is an Accredited Facility of the [employer] ([employer]). Total time: 25 minutes in chart review, lab/radiology evaluation/interpretation, patient exam, patient counseling and care coordination. This document was completed utilizing speech recognition software. Grammatical errors, random word insertions, pronoun errors, and incomplete sentences are an occasional consequence of this system due to software limitations, ambient noise, and hardware issues. Any formal questions or concerns about the content, text or information contained within the body of this dictation should be directly addressed to the provider for clarification. documented in this encounter [facility] 09-03-2023 Nurse Note Pt here alone for follow up appoint with Dr Gamez Appetite and energy level WNL Denies pain in right breast Up to date with mammogram. She continues to take femara 2.5 mg daily. KM [facility] 09-03-2023 Nurse Note Pt here alone for follow up appoint with Dr Gamez Appetite and energy level WNL Denies pain in right breast Up to date with mammogram. She continues to take femara 2.5 mg daily. KM documented in this encounter [facility] 07-21-2023 History of Present illness Narrative Hematology/Oncology Follow up Visit Diagnosis/Treatment Summary: 1) right breast DCIS grade II with an encapsulated papillary carcinoma (without definite invasion) s/p right lumpectomy on 10/09/21 at [facility]. DCIS spanning 18mm. [place] nodes were omitted. Margins negative. pTis cN0. ER+ >95% - post lumpectomy radiation therapy completed 01/16/22 - AI for 5 years recommended. Arimidex started 01/20/22 but changed to Letrozole in March 2022, which she is tolerating better. Interval History: Rahel Ralph is a 72 y.o. female who comes in today for routine follow up. She has no new concerns today and feels at her baseline. She is tolerating Letrozole well and requests a refill on it today. She has a mammogram scheduled at [facility] on 08/06/23. She has no other complaints today and denies any fatigue, fevers, chills, recent infections, bleeding, blood in stools, headaches, vision changes, chest pain, shortness of breath, nausea, vomiting, diarrhea, constipation, abdominal pain, bone pain, weight loss, weakness, numbness, or tingling or changes in coordination or gait. Review of Systems Constitutional: Negative for appetite change, chills, diaphoresis, fatigue, fever and unexpected weight change. HENT: Negative for dental problem, mouth sores, nosebleeds, sneezing, sore throat, tinnitus, trouble swallowing and voice change. Eyes: Negative for photophobia, pain and visual disturbance. Respiratory: Negative for cough, shortness of breath and wheezing. Cardiovascular: Negative for chest pain, palpitations and leg swelling. Gastrointestinal: Negative for abdominal distention, abdominal pain, blood in stool, constipation, diarrhea, nausea and vomiting. Endocrine: Negative for cold intolerance and heat intolerance. Genitourinary: Negative for difficulty urinating, frequency, hematuria and urgency. Musculoskeletal: Negative for arthralgias, back pain, gait problem and myalgias. Skin: Negative for pallor and rash. Allergic/Immunologic: Negative for immunocompromised state. Neurological: Negative for dizziness, syncope, weakness, light-headedness, numbness and headaches. Hematological: Negative for adenopathy. Does not bruise/bleed easily. Psychiatric/Behavioral: Negative for confusion and sleep disturbance. The patient is not nervous/anxious. All other systems reviewed and are negative. 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 Family History Problem Relation Name Age of Onset Cancer Mother Lung cancer Other ([id number]) Father Heart failure Father Diabetes Father Liver cancer Father Bladder Cancer Brother Other ([id number]) Maternal Grandmother Diabetes Maternal Grandmother Diabetes Paternal Grandmother Social History Tobacco Use Smoking status: Former Packs/day: 1 Types: Cigarettes Quit date: 09/06/2011 Years since quittin.8 Smokeless tobacco: Never Substance Use Topics Alcohol use: Yes Alcohol/week: 14.0 standard drinks of alcohol Types: 14 Shots of liquor per week No Known Allergies Current Outpatient Medications Medication Sig Dispense Refill b complex vitamins capsule Take 1 capsule by mouth daily. cholecalciferol (Vitamin D-3) 25 MCG (1000 UT) capsule Take 1 capsule by mouth in the morning. cyclobenzaprine (Flexeril) 5 MG tablet Take 5 mg by mouth 3 times daily as needed. letrozole (Femara) 2.5 MG tablet Take 1 tablet (2.5 mg total) by mouth daily. Take with or without food. 90 tablet 3 losartan (Cozaar) 100 MG tablet Take 100 mg by mouth in the morning. Lumigan 0.01 % ophthalmic solution instill 1 (ONE) DROP IN BOTH EYES EVERY evening Multiple Vitamin (Multi-Vitamin) tablet Take 1 tablet by mouth in the morning. Multiple Vitamins-Minerals (ICAPS AREDS FORMULA PO) twice a day. pimecrolimus (Elidel) 1 % cream as needed. Probiotic Product (PROBIOTIC BLEND PO) Take 1 capsule by mouth daily. RIBOFLAVIN PO Take 2 capsules by mouth daily. triamcinolone (Kenalog) 0.1 % ointment Apply topically twice a day. UNABLE TO FIND Take 2 tablets by mouth daily. Med Name: Collatrim No current facility-administered medications for this visit. Blood pressure (!) 150/90, pulse 74, temperature 36.7 C (98.1 F), temperature source Temporal, height 1.676 m (5' 6), weight 74.8 kg (165 lb), SpO2 98%. ECO Physical Exam Vitals and nursing note reviewed. Constitutional: General: She is not in acute distress. Appearance: Normal appearance. She is not ill-appearing. HENT: Head: Normocephalic and atraumatic. Nose: Nose normal. Mouth/Throat: Pharynx: Oropharynx is clear. No oropharyngeal exudate or posterior oropharyngeal erythema. Eyes: General: No scleral icterus. Extraocular Movements: Extraocular movements intact. Conjunctiva/sclera: Conjunctivae normal. Pupils: Pupils are equal, round, and reactive to light. Cardiovascular: Rate and Rhythm: Normal rate and regular rhythm. Heart sounds: Normal heart sounds. No murmur heard. Pulmonary: Effort: Pulmonary effort is normal. No respiratory distress. Breath sounds: Normal breath sounds. No wheezing. Abdominal: General: Abdomen is flat. Bowel sounds are normal. There is no distension. Palpations: Abdomen is soft. There is no mass. Tenderness: There is no abdominal tenderness. There is no guarding. Musculoskeletal: General: No swelling or tenderness. Normal range of motion. Cervical back: Normal range of motion and neck supple. Right lower leg: No edema. Left lower leg: No edema. Lymphadenopathy: Cervical: No cervical adenopathy. Skin: General: Skin is warm and dry. Findings: No bruising or rash. Neurological: General: No focal deficit present. Mental Status: She is alert and oriented to person, place, and time. Mental status is at baseline. Psychiatric: Mood and Affect: Mood normal. Thought Content: Thought content normal. Right breast: no masses noted Left breast: no masses noted No bilateral axillary or supraclavicular adenopathy is noted. No visits with results within 1 Month(s) from this visit. Latest known visit with results is: No results found for any previous visit. Imaging Results: Bilateral kita diag with bartolo 08/03/23 at [facility] IMPRESSION: BENIGN FINDING There is no mammographic evidence of malignancy. A 1 year screening mammogram is recommended. Lindsay victoria/claire:08/03/2022 08:19:02 - I have reviewed all pertinent laboratory, imaging, and pathology results with the patient and/or family members present. Assessment/Plan: Diagnosis Plan 1. Ductal carcinoma in situ (DCIS) of right breast letrozole (Femara) 2.5 MG tablet 1) Stage 0 right breast cancer - See details of presentation above - Today, we again reviewed the diagnosis, staging, natural history, prognosis, and treatment course to date for her right sided ER+ DCIS. NCCN guidelines were reviewed. Treatment intent is curative. There is no evidence of disease recurrence on exam today. - Five years of aromatase inhibitor with Letrozole 2.5mg PO daily is recommended (started January 2022). Potential side effects and anticipated benefits of Letrozole were reviewed with the patient and she agreed to proceed. See orders - she will continue with annual mammograms. This is scheduled for 08/06/23 at [facility]. - signs and symptoms of breast cancer recurrence were reviewed with the patient and she was instructed to call with any concerns. She was instructed on monthly self breast exams. 2) bone health - DEXA scan 03/07/20 at [facility] showed normal bone density - DEXA 03/10/22 at [facility] normal - calcium and vitamin d supplements recommended All questions were answered to the satisfaction of the patient and/or family. Return to office in 1 year or sooner if worrisome signs/symptoms arise. Rex Villanueva DO Hematology/Medical Oncology documented in this encounter [facility] 05-27-2023 Note HNO ID: [id number] Author: Kristy Mcknight MD Service: ? Author Type: Physician Type: Progress Notes Filed: 05/28/2023 1:58 PM Note Text: PROGRESS NOTES PATIENT NAME: Rahel Ralph Assessment ASSESSMENT/PLAN: (D05.11) Ductal carcinoma in situ (DCIS) of right breast (primary encounter diagnosis) Fadia presents in follow-up of her right breast DCIS diagnosed in 2021. There is no evidence for recurrence. Her next mammogram will be due in July. She will follow-up with Dr. Villanueva for clinical exams. She can return to see me as needed. No orders found for this visit on 05/27/23. SUBJECTIVE CHIEF COMPLAINT: Patient presents with: Follow Up: Clinical Breast Exam INTERVAL HISTORY OF PRESENT ILLNESS: Fadia returns in follow-up of her right breast DCIS diagnosed in 2021. She is without complaint. She is tolerating letrozole. She presents for clinical breast exam. HISTORIES: PAST MEDICAL HISTORY Diagnosis Date DCIS (ductal carcinoma in situ) 09/23/2021 right breast Discoid lupus erythematosus Glaucoma meds for prevention. pressure is elevated Hypertension Osteoporosis Plaque psoriasis PAST SURGICAL HISTORY Procedure Laterality Date APPENDECTOMY BREAST LUMPECTOMY HX Right 10/09/2021 BUNIONECTOMY, LAPIDUS-TYPE Bilateral 1970 BX OF BREAST; INCISIONAL Right 09/23/2021 CATARACT EXTRACTION HX Right 11/07/2019 COLONOSCOPY FLX DX W/COLLJ SPEC WHEN PFRMD 2012 Colonoscopy COLONOSCOPY SCREENING 11/01/2020 DERM PATH BIOPSY PC 2017 chest TONSILLECTOMY PRIMARY/SECONDARY Tonsillectomy TUBAL LIGATION, 1968 ALLERGIES: Sulfamethoxazole-Trimethoprim MEDICATIONS: Current Outpatient Medications Medication Sig metoprolol tartrate, short acting, (LOPRESSOR) 25 mg tablet Take 1 tablet by mouth twice daily. famotidine (PEPCID) 40 mg tablet Take 40 mg by mouth once daily. losartan (COZAAR) 100 mg tablet Take 1 tablet by mouth once daily. triamcinolone acetonide (KENALOG) 0.1 % ointment Apply to affected area twice daily. APPLY TO AFFECTED AREA. letrozole (FEMARA) 2.5 mg tablet Take 2.5 mg by mouth once daily. B2/vits A,C,E/lut/zeaxanth/min (ICAPS ORAL) Take by mouth. Cholecalciferol, Vitamin D3, 25 mcg (1,000 unit) cap Take 1 capsule by mouth once daily. Vitamin D3 L.acid/L.casei/B.bif/B.rudolph/FOS (PROBIOTIC BLEND ORAL) Take by mouth. multivitamin tablet Take 1 tablet by mouth once daily. MEDICATION, NON-DATABASE Take 2 tablets by mouth once daily. ambrotose AO LUMIGAN 0.01 % drop ophthalmic drops Use 1 Drop in both eyes daily at bedtime. vitamin b complex capsule Take 2 capsules by mouth once daily. esomeprazole magnesium 22.3 mg cpDR Take 1 capsule by mouth once daily. LECITHIN ORAL Take 2 capsules by mouth once daily. MILK THISTLE ORAL Take 2 capsules by mouth once daily. Current Facility-Administered Medications Medication Dose Route Frequency perflutren lipid microspheres 1.3 mL in NaCl (PF) 0.9% 10 mL injection (DEFINITY) INTRAVENOUS DIRECTED PRN sodium chloride 0.9 % (flush) 10 mL (BD POSIFLUSH) 10 mL INTRAVENOUS DIRECTED PRN FAMILY HISTORY Problem Relation Age of Onset other (Lung CA) Mother Ischemic Heart Disease Father 60 other (DM) Father other (Gallbladder CA) Father other (Liver) Father other (M.I.) Father Cancer Brother bladder - orange enduced Diabetes Maternal Grandmother Coronary Artery Disease Maternal Grandmother other (no colon cancer) Maternal Grandmother other (Diabetes Mellitus) Maternal Grandmother other (DM) Paternal Grandmother Social History Tobacco Use Smoking status: Former Years: 50 Types: Cigarettes Start date: 09/06/1962 Quit date: 12/26/2013 Years since quittin.4 Smokeless tobacco: Never Tobacco comments: date: 1962; Stop date: 2013 e-cigarettes Vapes now (06/01/2019) Vaping Use Vaping Use: current everyday user Substances: Flavoring Substance Use Topics Alcohol use: Yes Alcohol/week: 1.0 standard drink of alcohol Types: 1 Glasses of wine per week Comment: Social - Type: hard liquor; Has 5 drink/day Drug use: No OBJECTIVE PHYSICAL EXAM: BP 148/90 Pulse 74 Ht 5' 6.5 (1.69m) Wt 160 lb 11.2 oz (72.9kg) SpO2 97% BMI 25.55 kg/(m2). General: Well developed, well-nourished, female in no distress HEENT: Normocephalic, atraumatic. Extraocular movements intact. Sclera are nonicteric. Breasts: No dominant masses, no discharge, no skin or nipple change, no palpable axillary adenopathy bilaterally. Postsurgical changes upper inner right breast. Heart: Regular rate and rhythm, no murmur Lungs: Clear to auscultation without wheezes Extremities: No edema Neurologic: Alert, oriented, and appropriate. Neurologic exam is symmetric and nonfocal. DATA: Diagnostic tests reviewed for today's visit: Mammogram 07/28 negative Kristy Mcknight MD [facility] 05-27-2023 History of Present illness Narrative PROGRESS NOTES PATIENT NAME: Rahel Ralph Assessment ASSESSMENT/PLAN: (D05.11) Ductal carcinoma in situ (DCIS) of right breast (primary encounter diagnosis) Fadia presents in follow-up of her right breast DCIS diagnosed in 2021. There is no evidence for recurrence. Her next mammogram will be due in July. She will follow-up with Dr. Villanueva for clinical exams. She can return to see me as needed. No orders found for this visit on 05/27/23. SUBJECTIVE CHIEF COMPLAINT: Patient presents with: Follow Up: Clinical Breast Exam INTERVAL HISTORY OF PRESENT ILLNESS: Fadia returns in follow-up of her right breast DCIS diagnosed in 2021. She is without complaint. She is tolerating letrozole. She presents for clinical breast exam. HISTORIES: PAST MEDICAL HISTORY Diagnosis Date DCIS (ductal carcinoma in situ) 09/23/2021 right breast Discoid lupus erythematosus Glaucoma meds for prevention. pressure is elevated Hypertension Osteoporosis Plaque psoriasis PAST SURGICAL HISTORY Procedure Laterality Date APPENDECTOMY BREAST LUMPECTOMY HX Right 10/09/2021 BUNIONECTOMY, LAPIDUS-TYPE Bilateral 1970 BX OF BREAST; INCISIONAL Right 09/23/2021 CATARACT EXTRACTION HX Right 11/07/2019 COLONOSCOPY FLX DX W/COLLJ SPEC WHEN PFRMD 2012 Colonoscopy COLONOSCOPY SCREENING 11/01/2020 DERM PATH BIOPSY PC 2017 chest TONSILLECTOMY PRIMARY/SECONDARY <AGE 12 1956 Tonsillectomy TUBAL LIGATION, 1967 ALLERGIES: Sulfamethoxazole-Trimethoprim MEDICATIONS: Current Outpatient Medications Medication Sig metoprolol tartrate, short acting, (LOPRESSOR) 25 mg tablet Take 1 tablet by mouth twice daily. famotidine (PEPCID) 40 mg tablet Take 40 mg by mouth once daily. losartan (COZAAR) 100 mg tablet Take 1 tablet by mouth once daily. triamcinolone acetonide (KENALOG) 0.1 % ointment Apply to affected area twice daily. APPLY TO AFFECTED AREA. letrozole (FEMARA) 2.5 mg tablet Take 2.5 mg by mouth once daily. B2/vits A,C,E/lut/zeaxanth/min (ICAPS ORAL) Take by mouth. Cholecalciferol, Vitamin D3, 25 mcg (1,000 unit) cap Take 1 capsule by mouth once daily. Vitamin D3 L.acid/L.casei/B.bif/B.rudolph/FOS (PROBIOTIC BLEND ORAL) Take by mouth. multivitamin tablet Take 1 tablet by mouth once daily. MEDICATION, NON-DATABASE Take 2 tablets by mouth once daily. ambrotose AO LUMIGAN 0.01 % drop ophthalmic drops Use 1 Drop in both eyes daily at bedtime. vitamin b complex capsule Take 2 capsules by mouth once daily. esomeprazole magnesium 22.3 mg cpDR Take 1 capsule by mouth once daily. LECITHIN ORAL Take 2 capsules by mouth once daily. MILK THISTLE ORAL Take 2 capsules by mouth once daily. Current Facility-Administered Medications Medication Dose Route Frequency perflutren lipid microspheres 1.3 mL in NaCl (PF) 0.9% 10 mL injection (DEFINITY) INTRAVENOUS DIRECTED PRN sodium chloride 0.9 % (flush) 10 mL (BD POSIFLUSH) 10 mL INTRAVENOUS DIRECTED PRN FAMILY HISTORY Problem Relation Age of Onset other (Lung CA) Mother Ischemic Heart Disease Father 60 other (DM) Father other (Gallbladder CA) Father other (Liver) Father other (M.I.) Father Cancer Brother bladder - orange enduced Diabetes Maternal Grandmother Coronary Artery Disease Maternal Grandmother other (no colon cancer) Maternal Grandmother other (Diabetes Mellitus) Maternal Grandmother other (DM) Paternal Grandmother Social History Tobacco Use Smoking status: Former Years: 50 Types: Cigarettes Start date: 09/06/1962 Quit date: 12/26/2013 Years since quittin.4 Smokeless tobacco: Never Tobacco comments: date: 1962; Stop date: 2013 e-cigarettes Vapes now (06/01/2019) Vaping Use Vaping Use: current everyday user Substances: Flavoring Substance Use Topics Alcohol use: Yes Alcohol/week: 1.0 standard drink of alcohol Types: 1 Glasses of wine per week Comment: Social - Type: hard liquor; Has 5 drink/day Drug use: No OBJECTIVE PHYSICAL EXAM: BP 148/90 Pulse 74 Ht 5' 6.5 (1.69m) Wt 160 lb 11.2 oz (72.9kg) SpO2 97% BMI 25.55 kg/(m^2). General: Well developed, well-nourished, female in no distress HEENT: Normocephalic, atraumatic. Extraocular movements intact. Sclera are nonicteric. Breasts: No dominant masses, no discharge, no skin or nipple change, no palpable axillary adenopathy bilaterally. Postsurgical changes upper inner right breast. Heart: Regular rate and rhythm, no murmur Lungs: Clear to auscultation without wheezes Extremities: No edema Neurologic: Alert, oriented, and appropriate. Neurologic exam is symmetric and nonfocal. DATA: Diagnostic tests reviewed for today's visit: Mammogram 07/28 negative Kristy Mcknight MD documented in this encounter [facility] 04-01-2023 Miscellaneous Notes Patient's request for medication is as follows: Requested Prescriptions Pending Prescriptions Disp Refills metoprolol tartrate, short acting, (LOPRESSOR) 25 mg tablet [Pharmacy Med Name: metoprolol tartrate 25 mg tablet] 180 tablet 3 Sig: Take 1 tablet by mouth twice daily. Last seen 03/18/2023. Prescription(s) as above. Please process accordingly. Violetta Xavier LPN documented in this encounter [facility] 03-25-2023 Miscellaneous Notes I spoke to and informed her of 's response to Echo results. Patient voiced understanding. Violetta Xavier LPN ----- Message from Luis A Victor MD sent at 03/24/2023 2:48 PM EDT ----- Normal LV size, systolic function . LVEF 63 %. No significant valvular abnormalities. Normal RV size, systolic function. documented in this encounter [facility] 03-18-2023 History of Past i llness Narrative Problem Noted Date Diagnosed Date Resolved Date Mild pulmonary hypertension 03/18/2023 08/11/2023 Tobacco use disorder 03/26/2016 020 documented as of this encounter (statuses as of 12/11/2023) [facility]07-13-[facility]23 History of Past illness Narrative* Problem Noted Date Diagnosed Date Resolved Date Mild pulmonary hypertension 03/18/2023 08/11/2023 Tobacco use disorder 03/26/2016 020 documented as of this encounter (statuses as of 12/13/2023) [facility]07-13-2023 Instructions* Patient Instructions* Luis A Victor MD - 03/18/2023 11:34 AM EDT Tachycardia (Fast Heartbeat) What is tachycardia? Tachycardia is a resting heart rate that stays above 100 beats per minute when you are resting. Thenormal adult heart rate ranges from about 50 to 100 beats per minute. What is the cause? An electrical signal in your heart starts each heartbeat, causing the heart muscle to squeeze (contract). Normally, this signal starts in the upper right chamber of the heart (the right atrium) at a place called the sinus node. The signal then follows pathways to the upper left atrium and to the lower chambers of the heart (the ventricles). Many different things can cause a fast resting heart rate. Some of the conditions that can cause your heart to beat faster are: Anemia High blood pressure Fever Stress Thyroid problems Problems with the heart can cause a fast heart rate. For example: Changes in the electrical signal that causes your heart to beat can make your heart beat faster. Muscles in the upper chambers of the heart may tend to quiver and send random signals to the lower chambers of the heart. The heartbeat may start in the lower chambers of the heart rather than the upper chamber. What are the symptoms? The main symptom is feeling your heart beating fast. Other symptoms may include: Lightheadedness or fainting Nausea Cold sweat Shortness of breath Chest pain Weakness Contact your healthcare provider if you have any of these symptoms in addition to a fast heartbeat. How is it diagnosed? Your healthcare provider will ask about your symptoms and medical history and examine you. Tests may include: Blood tests Chest X-rays An ECG (also called an EKG or electrocardiogram), which measures and records your heartbeat. You may have an ECG while you are resting or while you exercise on a treadmill. You may also be asked to wear a small portable ECG monitor for a few days or longer. An electrophysiology study, which uses tiny wires put into your heart through your veins to look atthe electrical paths in your heart How is it treated? The treatment depends on the type of tachycardia that you have. Treatment may include: Medicine to slow your heartbeat Ablation, which uses a small tube called a catheter to deliver electrical pulses to the inside of the heart. The electrical pulses make small scars that block abnormal electrical pathways. This helpsyou have a regular heart rhythm. An implantable cardiac defibrillator (ICD), which is a device that can shock the heart back to a regular rhythm. In cases of life-threatening heart rhythm problems, ICDs can provide an instant, life-saving electrical shock before medical help arrives. You may also receive treatment for any health problems you have that may be causing tachycardia. How can I take care of myself? If you have heart disease, high blood pressure, or another medical problem, follow your treatment plan. Be sure to take all medicines as prescribed by your provider. Try to have a heart-healthy lifestyle: Eat a healthy diet. Try to keep a healthy weight. If you are overweight, lose weight. Stay fit with the right kind of exercise for you. Learn ways to manage stress. If you smoke, try to quit. Talk to your healthcare provider about ways to quit smoking. If you want to drink alcohol, ask your healthcare provider how much is safe for you to drink. Try to get at least 7 to 9 hours of sleep each night. Ask your provider: How and when you will hear your test results How long it will take to recover What activities you should avoid and when you can return to your normal activities How to take care of yourself at home What symptoms or problems you should watch for and what to do if you have them Make sure you know when you should come back for a checkup. How can I help prevent tachycardia? There is no specific way to prevent tachycardia, but a healthy lifestyle can help prevent heart disease, which can cause tachycardia. Developed by [employer]. Published by [employer]. Copyright 2014 [employer] and/or one of its subsidiaries. All rights reserved. documented in this encounterLouis Stokes [facility]07-13-[facility]23 History of Present illness Narrative* Luis A Victro MD - 03/18/2023 11:14 AM EDT PRIMARY CARE PHYSICIAN: Fariba Truong MD [address] [place] [address] REFERRING PHYSICIAN: Fariba Truong MD [address] [place] [address] CHIEF COMPLAINT: Patient presents with: Yearly Exam: No issues HPI: Ms Ralph has a history of hypertension. She used to be a long time smoker, and quit smoking in 2014, but switched to electronic cigarettes around 2014. She mentioned that she has not had any nicotine in her electronic cigarettes since 09/25. She drinks about 4 drinks of vodka a day. She does not have a family history of pulmonary hypertension or sudden .She saw Dr Truong for a routine visit in 2019, and an echo was ordered to follow up on pulmonary hypertension. In the past, she was told thatmara had mild pulmonary hypertension. On her echo in 2016, there was no evidence of pulmonary hypertension, but the appearance of the right-sided chambers suggested possible underestimation of the right ventricular systolic pressures. The tricuspid annular excursion was normal at 2.3 cm. On her current echo in 2019, the tricuspid annular excursion was still normal at 2.5 cm. I ordered a repeat echo for her in 02/24, and the results revealed an LVEF of 63%, normal right ventricular size, systolic function, without significant valvular abnormalities. Her RV systolic pressure was calculated at 24 mm Hg.In 11/26, she developed issues with tachycardia, and hypertension. Her heart rates were in the 100's, and her blood pressures were in the 150's/100's. I added Lopressor 25 mg BID to her medical regime. She returns for a follow-up visit today. She is still vaping, but mentioned that she doesn't use itthat much. 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 Clinically, she denies feeling any chest pain, shortness of breath. She denies lightheadedness, dizziness, palpitations. She has not noticed any lower extremity edema, paroxysmal nocturnal dyspnea, orthopnea. I went over the results of her echocardiogram with her in detail, and explained to her that for 2 years in a row, her echocardiograms have not indicated any pulmonary hypertension. 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 pressure is elevated Hypertension Osteoporosis Plaque psoriasis PAST SURGICAL HISTORY Procedure Laterality Date APPENDECTOMY BREAST LUMPECTOMY HX Right 10/09/2021 BUNIONECTOMY, LAPIDUS-TYPE Bilateral 1970 BX OF BREAST; INCISIONAL Right 09/23/2021 CATARACT EXTRACTION HX Right 11/07/2019 COLONOSCOPY FLX DX W/COLLJ SPEC WHEN PFRMD 2012 Colonoscopy COLONOSCOPY SCREENING 11/01/2020 DERM PATH BIOPSY PC 2017 chest TONSILLECTOMY PRIMARY/SECONDARY <AGE 12 1957 Tonsillectomy TUBAL LIGATION, 1968 SOCIAL HISTORY Social History Tobacco Use Smoking status: Former Years: 50.00 Types: Cigarettes Start date: 09/06/1962 Quit date: 12/26/2013 Years since quittin.2 Smokeless tobacco: Never Tobacco comments: date: 1962; Stop date: 2013 e-cigarettes Vapes now (06/01/2019) Vaping Use Vaping Use: current everyday user Substances: Flavoring Substance Use Topics Alcohol use: Yes Alcohol/week: 1.0 standard drink of alcohol Types: 1 Glasses of wine per week Comment: Social - Type: hard liquor; Has 5 drink/day Drug use: No FAMILY HISTORY Problem Relation Age of Onset other (Lung CA) Mother Ischemic Heart Disease Father 60 other (DM) Father other (Gallbladder CA) Father other (Liver) Father other (M.I.) Father Cancer Brother bladder - orange enduced Diabetes Maternal Grandmother Coronary Artery Disease Maternal Grandmother other (no colon cancer) Maternal Grandmother other (Diabetes Mellitus) Maternal Grandmother other (DM) Paternal Grandmother ALLERGIES: ALLERGIES Allergen Reactions Sulfamethoxazole-Tr* Rash MEDICATIONS: losartan (COZAAR) 100 mg tablet Take 1 tablet by mouth once daily. metoprolol tartrate, short acting, (LOPRESSOR) 25 mg tablet Take 1 tablet by mouth twice daily. triamcinolone acetonide (KENALOG) 0.1 % ointment Apply to affected area twice daily. APPLY TO AFFECTED AREA. letrozole (FEMARA) 2.5 mg tablet Take 2.5 mg by mouth once daily. B2/vits A,C,E/lut/zeaxanth/min (ICAPS ORAL) Take by mouth. Cholecalciferol, Vitamin D3, 25 mcg (1,000 unit) cap Take 1 capsule by mouth once daily. Vitamin D3 L.acid/L.casei/B.bif/B.rudolph/FOS (PROBIOTIC BLEND ORAL) Take by mouth. multivitamin tablet Take 1 tablet by mouth once daily. MEDICATION, NON-DATABASE Take 2 tablets by mouth once daily. ambrotose AO LUMIGAN 0.01 % drop ophthalmic drops Use 1 Drop in both eyes daily at bedtime. vitamin b complex capsule Take 2 capsules by mouth once daily. LECITHIN ORAL Take 2 capsules by mouth once daily. MILK THISTLE ORAL Take 2 capsules by mouth once daily. famotidine (PEPCID) 40 mg tablet Take 40 mg by mouth once daily. esomeprazole magnesium 22.3 mg cpDR Take 1 capsule by mouth once daily. REVIEW OF SYSTEMS: GENERAL: Negative for:Weight loss and Weight gain HEENT: Negative for:Nosebleeds RESPIRATORY: Negative for:Shortness of breath GASTROINTESTINAL: Negative for:Blood in stool MUSCULOSKELETAL: Negtive for: Muscle or joint pain, stiffness, Joint swelling SKIN: No rash HEMATOLOGICAL/LYMPHATIC: Negative for: Easy bruising and Easy bleeding CARDIOVASCULAR: As stated in HPI. 10 system review negative except as stated in HPI PHYSICAL EXAMINATION: BP 134/75[Just took her metoprolol prior to office visit[ Pulse 77 Resp 12 Ht 5' 6.5 (1.69m) Wt 160 lb 12.8 oz (72.9kg) SpO2 96[room air]% BMI 25.57 kg/(m^2). General: Well appearing, in no acute distress, speaking in complete sentences., Well appearing. Psych: Normal Affect Eyes: No subconjunctival hemorrhage Skin: No rash, bruising Oropharynx: Mucous membranes normal Neck: no jugular venous distention, no carotid bruits. Lymph: No cervical lymphadenopathy Lungs: Clear to auscultation bilaterally, no wheezing or rhonchi. Heart: S1, S2 normal, faint 1/6 pansystolic murmur at the lower left sternal border Extremities: No peripheral edema Neuro: Grossly nonfocal ASSESSMENT/PLAN: 1. Mild pulmonary hypertension (HCC) - ICD9: 416.8, ICD10: I27.20 (primary diagnosis) As described above, her last 2 echocardiograms in 2017 and 2019 have not revealed any significant pulmonary hypertension. Clinically, she does not have any symptoms of primary hypertension including dyspnea, symptoms of right heart failure. The physical exam did not support these findings either. I explained to her about pulmonary hypertension in detail, and mentioned that if she does have any primary hypertension, it is likely WHO class III secondary to chronic smoking. In the absence of symptoms, echocardiographic findings, I do not suggest proceeding with a right heart catheterization. Additionally, for 2 years in a row, her echocardiograms have not suggested any pulmonary hypertension. I doubt that this is a true diagnosis for her at this point. Her blood pressures were somewhat elevated. I did increase her losartan to 75 mg daily, as this would potentially prevent her from developing WHO class II pulmonary hypertension down the line. I did ask her to follow-up with her PCP on a regular basis. Echocardiograms may be performed every 2 to 3 years, and if there is a suggestion of elevated pulmonary pressures, I am happy to reevaluateher at that time. For now, she does not need a regular follow-up with cardiology, since she does not have pulmonary hypertension. I did strongly encourage her to give up electronic cigarettes completely, although she did not think that she would successfully quit completely. 2. Nonrheumatic tricuspid valve regurgitation - ICD9: 424.2, ICD10: I36.1 As described above, this is likely secondary to chronic smoking with the right heart strain. Her latest echocardiogram in 2020 revealed only trivial tricuspid regurgitation. This is considered normalfor her age. Today, she had some questions if her tachycardia was related to her tricuspid regurgitation. I do not think that she has enough tricuspid regurgitation to explain her tachycardia. In anycase, I will repeat her echocardiogram. 3. Essential hypertension - ICD9: 401.9, ICD10: I10 - Slightly suboptimal control. I did increase her losartan from 50 mg daily to 75 mg daily, as thiscould also potentially prevent her from developing WHO class II pulmonary hypertension down the line. Her LDL was at goal based on her lipid panel in 2019. She has regular lipid panel checks with herprimary care provider. Continue the same. - Recommended regular aerobic exercise. - Recommend home blood pressure monitoring, to bring results in on next visit - Goal of BP <130/80 4. Alcohol abuse - ICD9: 305.00, ICD10: F10.10 Strongly counseled her to cut down on alcohol intake, and quit completely if possible 5. Electronic cigarette use - ICD9: 305.1, ICD10: Z78.9 - Cessation encouraged. She said that she has cut down smoking quite a bit, and wants to quit completely sometime the next year. She did mention that her boyfriend also wants to do the same. - Physiologic and physical aspects of tobacco addiction as well as strategies for quitting were discussed. - Counseling was given focusing on the harmful effects of this addiction especially given the patient's medical condition(s) which will be worsened because of the chemicals in tobacco. 6. Reed's esophagus with dysplasia - ICD9: 530.85, ICD10: K22.719 Management per her primary provider. 7. Tachycardia - ICD-10: R0.0 Check a thyroid panel. She has done well since the addition of metoprolol tartrate. Continue the same. Luis A Victor MD Greater than 50% of the time was spent in counseling/coordination of care. Total time 26 minutes I have confirmed and edited as necessary, the Past, Family, Social History and Review Of Systems, obtained by my office staff. Elements of history of present illness, assessment , and plan were copied from my last office note dated 08/14/2021, but have been updated where appropriate; and all reflectcurrent medical decision making from TODAY, 03/18/2023 . Physical exam listed was also completed in entirety today and is unchanged from my last office note dated above, except where noted. The above note was partially created using a dictation recognition software. A reasonable attempt has been made to correct any errors. documented in this encounterLouis Stokes [facility]03-[facility]-2023 Miscellaneous Notes* Telephone Encounter - Luis A Victor MD - 11/27/2022 10:40 AM EDT I have ordered Metoprolol 25 mg BID. documented in this encounterLouis Stokes [facility]03-20-2023 NoteHNO ID: [id number] Author: Kristy Mcknight MD Service: ? Author Type: Physician Type: Progress Notes Filed: 11/24/2022 12:41 PM Note Text: PROGRESS NOTES PATIENT NAME: Rahel Ralph Assessment ASSESSMENT/PLAN: (D05.11) Ductal carcinoma in situ (DCIS) of right breast (primary encounter diagnosis) (Z12.31) Screening mammogram for breast cancer Fadia returns in follow-up of her right breast DCIS diagnosed last year. There is no clinical or radiographic evidence for recurrence. She will obtain her next mammogram in July. I will see her in 6 months for a clinical breast exam. She will continue letrozole and follow-up with oncology as scheduled. Office Visit on 11/23/22 KITA SCREENING W BARTOLO SUBJECTIVE CHIEF COMPLAINT: Patient presents with: Follow Up: 6 mo breast exam INTERVAL HISTORY OF PRESENT ILLNESS: Fadia is a 71-year-old female who presents in follow-up of her right breast DCIS diagnosed in early 2021. She was treated with lumpectomy and radiation. She is currently on letrozole. She is without complaint today. HISTORIES: PAST MEDICAL HISTORY Diagnosis Date DCIS (ductal carcinoma in situ) 09/23/2021 right breast Discoid lupus erythematosus Glaucoma meds for prevention. pressure is elevated Hypertension Osteoporosis Plaque psoriasis PAST SURGICAL HISTORY Procedure Laterality Date APPENDECTOMY BREAST LUMPECTOMY HX Right 10/09/2021 BUNIONECTOMY, LAPIDUS-TYPE Bilateral 1970 BX OF BREAST; INCISIONAL Right 09/23/2021 CATARACT EXTRACTION HX Right 11/07/2019 COLONOSCOPY FLX DX W/COLLJ SPEC WHEN PFRMD 2011 Colonoscopy COLONOSCOPY SCREENING 11/01/2020 DERM PATH BIOPSY PC 2017 chest TONSILLECTOMY PRIMARY/SECONDARY Tonsillectomy TUBAL LIGATION, 1968 ALLERGIES: Patient has no known allergies. MEDICATIONS: Current Outpatient Medications Medication Sig triamcinolone acetonide (KENALOG) 0.1 % ointment Apply to affected area twice daily. APPLY TO AFFECTED AREA. losartan (COZAAR) 100 mg tablet Take 1 tablet by mouth once daily. letrozole (FEMARA) 2.5 mg tablet Take 2.5 mg by mouth once daily. B2/vits A,C,E/lut/zeaxanth/min (ICAPS ORAL) Take by mouth. Cholecalciferol, Vitamin D3, 25 mcg (1,000 unit) cap Take 1 capsule by mouth once daily. Vitamin D3 L.acid/L.casei/B.bif/B.rudolph/FOS (PROBIOTIC BLEND ORAL) Take by mouth. multivitamin tablet Take 1 tablet by mouth once daily. MEDICATION, NON-DATABASE Take 2 tablets by mouth once daily. ambrotose AO LUMIGAN 0.01 % drop ophthalmic drops Use 1 Drop in both eyes daily at bedtime. vitamin b complex capsule Take 2 capsules by mouth once daily. esomeprazole magnesium 22.3 mg cpDR Take 1 capsule by mouth once daily. LECITHIN ORAL Take 2 capsules by mouth once daily. MILK THISTLE ORAL Take 2 capsules by mouth once daily. No current facility-administered medications for this visit. FAMILY HISTORY Problem Relation Age of Onset other (Lung CA) Mother Ischemic Heart Disease Father 60 other (DM) Father other (Gallbladder CA) Father other (Liver) Father other (M.I.) Father Cancer Brother bladder - orange enduced Diabetes Maternal Grandmother Coronary Artery Disease Maternal Grandmother other (no colon cancer) Maternal Grandmother other (Diabetes Mellitus) Maternal Grandmother other (DM) Paternal Grandmother Social History Tobacco Use Smoking status: Former Years: 50.00 Types: Cigarettes Start date: 09/06/1962 Quit date: 12/26/2013 Years since quittin.9 Smokeless tobacco: Never Tobacco comments: date: 1962; Stop date: 2013 e-cigarettes Vapes now (06/01/2019) Vaping Use Vaping Use: current everyday user Substances: Flavoring Substance Use Topics Alcohol use: Yes Alcohol/week: 1.0 standard drink Types: 1 Glasses of wine per week Comment: Social - Type: hard liquor; Has 5 drink/day Drug use: No OBJECTIVE PHYSICAL EXAM: BP 164/100 Pulse 89 Ht 5' 6 (1.68m) Wt 160 lb (72.6kg) BMI 25.84 kg/(m2). General: Well developed, well-nourished, female in no distress HEENT: Normocephalic, atraumatic. Extraocular movements intact. Sclera are nonicteric. Breasts: Right upper inner quadrant incision well-healed, small palpable hematoma remaining. No palpable masses of concern. No axillary lymphadenopathy bilaterally. Heart: Regular rate and rhythm, no murmur Lungs: Clear to auscultation without wheezes Rectal: Not evaluated Extremities: No lymphedema Neurologic: Alert, oriented, and appropriate. Neurologic exam is symmetric and nonfocal. DATA: Diagnostic tests reviewed for today's visit: Mammogram 07/28 reviewed: IMPRESSION: BENIGN FINDING There is no mammographic evidence of malignancy. A 1 year screening mammogram is recommended. Kristy Mcknight, [facility]11-28-2022 History of Present illness Narrative* KENDALL Cote - 08/03/2022 8:00 AM EST Radiology Service Progress Note PATIENT NAME: Rahel Ralph DATE OF SERVICE: August 03, 2022 TIME: 8:07 AM PATIENT IDENTITY VERIFICATION COMPLETED USING TWO (2) IDENTIFIERS: Name and Date of confirmedby patient verbally. FALL SCREENING: Has the patient had 2 falls in the last year or 1 fall with injury or currently using an Ambulatory Assistive Device (Walker, Cane, Wheelchair, Crutches, etc.)? No PATIENT GENDER DATA: Female. status: : No status: NO. PATIENT RELEVANT IMPLANT DATA REVIEWED: Not Applicable RADIOLOGY DEPARTMENT: Mammography PERIPHERAL IV DATA: Not applicable SIGNED BY: KENDALL Cote August 03, 2022 8:07 AM documented in this encounterLouis Stokes [facility] Center11-14-2022 History of Present illness Narrative* Grant Vaca Jr., MD - 07/20/2022 10:51 AM EST Images from the original note were not included. Grant Vaca Jr., M.D. [facility] [address] [address] Date of Evaluation: 07/20/2022 Patient Name: Rahel Ralph : 1950 Chief Complaint: Patient presents with: Establish Care Constipation Nursing Intake: There are no exam notes on file for this visit. Subjective Ms. 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 She has hypertension well controlled with 100 mg losartan daily. She takes many herbal meds and supplements and is currently dealing with radiation therapy after cancer of the right breast. Review of Systems Constitutional: Negative for fever and weight loss. HENT: Negative for congestion, ear pain and nosebleeds. Eyes: Negative for blurred vision and double vision. Respiratory: Negative for cough and shortness of breath. Cardiovascular: Negative for chest pain and palpitations. Gastrointestinal: Negative for abdominal pain and heartburn. Genitourinary: Negative for dysuria and frequency. Musculoskeletal: Negative for back pain, joint pain and myalgias. Skin: Negative for itching and rash. Neurological: Negative for dizziness and focal weakness. Psychiatric/Behavioral: Negative for depression. The patient is not nervous/anxious. 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 pressure is elevated Hypertension Osteoporosis Plaque psoriasis PAST SURGICAL HISTORY Procedure Laterality Date APPENDECTOMY BREAST LUMPECTOMY HX Right 10/09/2021 BUNIONECTOMY, LAPIDUS-TYPE Bilateral 1970 BX OF BREAST; INCISIONAL Right 09/23/2021 CATARACT EXTRACTION HX Right 11/07/2019 COLONOSCOPY FLX DX W/COLLJ SPEC WHEN PFRMD 2012 Colonoscopy COLONOSCOPY SCREENING 11/01/2020 DERM PATH BIOPSY PC 2017 chest TONSILLECTOMY PRIMARY/SECONDARY <AGE 12 7 Tonsillectomy TUBAL LIGATION, 1968 FAMILY HISTORY Problem Relation Age of Onset other (Lung CA) Mother Ischemic Heart Disease Father 60 other (DM) Father other (Gallbladder CA) Father other (Liver) Father other (M.I.) Father Cancer Brother bladder - orange enduced Diabetes Maternal Grandmother Coronary Artery Disease Maternal Grandmother other (no colon cancer) Maternal Grandmother other (Diabetes Mellitus) Maternal Grandmother other (DM) Paternal Grandmother Social History Tobacco Use Smoking status: Former Years: 50.00 Types: Cigarettes Start date: 09/06/1962 Quit date: 12/26/2013 Years since quittin.5 Smokeless tobacco: Never Tobacco comments: date: 1962; Stop date: 2013 e-cigarettes Vapes now (06/01/2019) Vaping Use Vaping Use: current everyday user Substances: Flavoring Substance Use Topics Alcohol use: Yes Alcohol/week: 1.0 standard drink Types: 1 Glasses of wine per week Comment: Social - Type: hard liquor; Has 5 drink/day Drug use: No Current Meds triamcinolone acetonide (KENALOG) 0.1 % ointment Apply to affected area twice daily. APPLY TO AFFECTED AREA. letrozole (FEMARA) 2.5 mg tablet Take 2.5 mg by mouth once daily. vit A/vit C/vit E/zinc/copper (ICAPS AREDS ORAL) twice daily. B2/vits A,C,E/lut/zeaxanth/min (ICAPS ORAL) Take by mouth. Cholecalciferol, Vitamin D3, 25 mcg (1,000 unit) cap Take 1 capsule by mouth once daily. Vitamin D3 L.acid/L.casei/B.bif/B.rudolph/FOS (PROBIOTIC BLEND ORAL) Take by mouth. multivitamin tablet Take 1 tablet by mouth once daily. MEDICATION, NON-DATABASE Take 2 tablets by mouth once daily. ambrotose AO LUMIGAN 0.01 % drop ophthalmic drops Use 1 Drop in both eyes daily at bedtime. vitamin b complex capsule Take 2 capsules by mouth once daily. esomeprazole magnesium 22.3 mg cpDR Take 1 capsule by mouth once daily. LECITHIN ORAL Take 2 capsules by mouth once daily. MILK THISTLE ORAL Take 2 capsules by mouth once daily. losartan (COZAAR) 100 mg tablet Take 1 tablet by mouth once daily. ELIDEL 1 % cream (Patient not taking: No sig reported) I have confirmed and edited as necessary the chief complaint, medications, past medical, family andsocial histories obtained by others. Objective BP 138/80 Pulse 100 Ht 5' 6.5 (1.69m) Wt 155 lb (70.3kg) SpO2 98% BMI 24.65 kg/(m^2). Physical Exam Vitals and nursing note reviewed. HENT: Head: Normocephalic. Right Ear: External ear normal. Left Ear: External ear normal. Eyes: Pupils: Pupils are equal, round, and reactive to light. Cardiovascular: Rate and Rhythm: Normal rate and regular rhythm. Heart sounds: Normal heart sounds. Pulmonary: Effort: Pulmonary effort is normal. Breath sounds: Normal breath sounds. Abdominal: General: Bowel sounds are normal. Palpations: Abdomen is soft. There is no mass. Musculoskeletal: General: No tenderness. Normal range of motion. Cervical back: Normal range of motion and neck supple. Lymphadenopathy: Cervical: No cervical adenopathy. Skin: General: Skin is warm and dry. Neurological: Mental Status: She is alert and oriented to person, place, and time. Gait: Gait is intact. Deep Tendon Reflexes: Reflexes are normal and symmetric. Psychiatric: Mood and Affect: Mood and affect normal. ASSESSMENT/PLAN: 1. Screening for lipid disorders - ICD9: V77.91, ICD10: Z13.220 (primary diagnosis) - LIPID PANEL BASIC 2. Essential hypertension - ICD9: 401.9, ICD10: I10 - good control - Continue current medication(s) - Recommended regular aerobic exercise. - Recommend home blood pressure monitoring, to bring results in on next visit - Goal of BP <130/80 - LOSARTAN 100 MG TABLET - CBC - COMP METABOLIC PANEL Discussed with patient satisfactory check and course, continued use of losartan as above via mail order at her request and lab checkup in 3 months which is ordered today. Will MyChart follow-up thoseresults and recheck in office in 1 year. Grant Vaca Jr, MD Return in about 1 year (around 07/20/2023), or 40. The above diagnoses & plan of care have been created and agreed upon with the patient. This note was partially generated using [employer] voice recognition system, and there may be some incorrect words, spellings, and punctuation that were not noted in checking the note before saving. documented in this encounterLouis [facility] History of Present illness Narrative* Kristy Mcknight MD - 04/25/2022 11:27 AM EDT PROGRESS NOTES PATIENT NAME: Rahel Ralph Assessment ASSESSMENT/PLAN: (D05.11) Ductal carcinoma in situ (DCIS) of right breast (primary encounter diagnosis) (Z12.31) Screening mammogram for breast cancer Pat returns in f/u of right breast DCIS. There is no evidence for recurrence. She will obtain her next mammogram in July. Follow up with me in 6 months. Office Visit on 04/23/22 KITA SCREENING W BARTOLO *Canceled* [facility]AT letrozole (FEMARA) 2.5 mg tablet SUBJECTIVE CHIEF COMPLAINT: Patient presents with: Follow Up: Left Breast Lumpectomy 10/09/21 INTERVAL HISTORY OF PRESENT ILLNESS: Fadia is a 71 yo female with h/o right breast DCIS diagnosed earlier this year. She was treated with breast conservation. Doing well. Tolerating Femara. HISTORIES: PAST MEDICAL HISTORY Diagnosis Date DCIS (ductal carcinoma in situ) 09/23/2021 right breast Discoid lupus erythematosus Glaucoma meds for prevention. pressure is elevated Hypertension Osteoporosis Plaque psoriasis PAST SURGICAL HISTORY Procedure Laterality Date APPENDECTOMY BREAST LUMPECTOMY HX Right 10/09/2021 BUNIONECTOMY, LAPIDUS-TYPE Bilateral 1970 BX OF BREAST; INCISIONAL Right 09/23/2021 CATARACT EXTRACTION HX Right 11/07/2019 COLONOSCOPY FLX DX W/COLLJ SPEC WHEN PFRMD 2012 Colonoscopy COLONOSCOPY SCREENING 11/01/2020 DERM PATH BIOPSY PC 2017 chest TONSILLECTOMY PRIMARY/SECONDARY <AGE 12 1957 Tonsillectomy TUBAL LIGATION, 1968 ALLERGIES: Patient has no known allergies. MEDICATIONS: Current Outpatient Medications Medication Sig letrozole (FEMARA) 2.5 mg tablet Take 2.5 mg by mouth once daily. losartan (COZAAR) 100 mg tablet Take 1 tablet by mouth once daily. B2/vits A,C,E/lut/zeaxanth/min (ICAPS ORAL) Take by mouth. Cholecalciferol, Vitamin D3, 25 mcg (1,000 unit) cap Take 1 capsule by mouth once daily. Vitamin D3 L.acid/L.casei/B.bif/B.rudolph/FOS (PROBIOTIC BLEND ORAL) Take by mouth. multivitamin tablet Take 1 tablet by mouth once daily. MEDICATION, NON-DATABASE Take 2 tablets by mouth once daily. ambrotose AO LUMIGAN 0.01 % drop ophthalmic drops Use 1 Drop in both eyes daily at bedtime. vitamin b complex capsule Take 2 capsules by mouth once daily. esomeprazole magnesium 22.3 mg cpDR Take 1 capsule by mouth once daily. LECITHIN ORAL Take 2 capsules by mouth once daily. MILK THISTLE ORAL Take 2 capsules by mouth once daily. ELIDEL 1 % cream (Patient not taking: No sig reported) vit A/vit C/vit E/zinc/copper (ICAPS AREDS ORAL) twice daily. (Patient not taking: Reported on 04/23/2022) No current facility-administered medications for this visit. FAMILY HISTORY Problem Relation Age of Onset other (Lung CA) Mother Ischemic Heart Disease Father 60 other (DM) Father other (Gallbladder CA) Father other (Liver) Father other (M.I.) Father Cancer Brother bladder - orange enduced Diabetes Maternal Grandmother Coronary Artery Disease Maternal Grandmother other (no colon cancer) Maternal Grandmother other (Diabetes Mellitus) Maternal Grandmother other (DM) Paternal Grandmother Social History Tobacco Use Smoking status: Former Years: 50.00 Types: Cigarettes Start date: 09/06/1962 Quit date: 12/26/2013 Years since quittin.3 Smokeless tobacco: Never Tobacco comments: date: 1962; Stop date: 2013 e-cigarettes Vapes now (06/01/2019) Vaping Use Vaping Use: current everyday user Substances: Flavoring Substance Use Topics Alcohol use: Yes Alcohol/week: 1.0 standard drink Types: 1 Glasses of wine per week Comment: Social - Type: hard liquor; Has 5 drink/day Drug use: No Reviewed and agreed with Review of Systems completed by the clinical staff. OBJECTIVE PHYSICAL EXAM: BP 142/84 Pulse 92 Ht 5' 9 (1.75m) Wt 158 lb 3.2 oz (71.8kg) SpO2 97% BMI 23.35 kg/(m^2). General: Well developed, well-nourished, female in no distress HEENT: Normocephalic, atraumatic. Extraocular movements intact. Sclera are nonicteric. Neck: Supple, no masses, no adenopathy Breasts: old hematoma at lumpectomy site. No concerning masses. No axillary lymphadenopathy. Heart: Regular rate and rhythm, no murmur Lungs: Clear to auscultation without wheezes Extremities: No edema Neurologic: Alert, oriented, and appropriate. Neurologic exam is symmetric and nonfocal. DATA: Diagnostic tests reviewed for today's visit: none Kristy Mcknight MD * Allison Bueno - 04/23/2022 10:03 AM EDT GENERAL:No weight loss, No malaise, No fevers HEENT:Negative for frequent or significant headaches, No changes in hearing or vision, no nose bleeds or other nasal problems CARDIOVASCULAR: Negative for chest pain, Negative for leg swelling, Negative for palpitaions RESPIRATORY:Negative for cough, wheezing or shortness of breath. GASTROINTESTINAL: Negative for abdominal discomfort, Negative for blood in stools, Negative for black stools, and Negative for change in bowel habits GENITOURINARY: No history of dysuria, frequency or incontinence. ENDOCRINE: None MANAGER SHELL:Denies any concerns MANAGER SHELL: Age of first period: 12 Number of pregnancies: 1 Number of live births: 0 Your age at of first child: n/a Your age at start of menopause: 38 Taking hormone replacement: no Family History of Cancer: Breast: paternal Grandmother Are you : No Are you breast feeding: No Date of last menstrual period: 37 MUSCULOSKELETAL: Negative for joint pain or swelling, back pain or muscle pain. NEUROLOGIC:Negative for focal numbness or weakness, headaches and dizziness or syncope. HEMATOLOGIC/LYMPHATIC/IMMUNOLOGIC:Negative for prolonged bleeding, bruising easily or swollen nodes. documented in this encounterLouis [facility]07-[facility]-2022 History of Present illness Narrative* RT Nery(Radha) - 03/10/2022 10:00 AM EDT Radiology Service Progress Note PATIENT NAME: Rahel Ralph DATE OF SERVICE: March 10, 2022 TIME: 10:33 AM PATIENT IDENTITY VERIFICATION COMPLETED USING TWO (2) IDENTIFIERS: Name and Date of confirmedby patient verbally. FALL SCREENING: Has the patient had 2 falls in the last year or 1 fall with injury or currently using an Ambulatory Assistive Device (Walker, Cane, Wheelchair, Crutches, etc.)? No PATIENT GENDER DATA: Female. status: : No status: N/A PATIENT RELEVANT IMPLANT DATA REVIEWED: Not Applicable RADIOLOGY DEPARTMENT: Bone Density PERIPHERAL IV DATA: Not applicable SIGNED BY: RT Nery(R) March 10, 2022 10:33 AM documented in this encounterLouis Stokes [facility]05-18-2022 Miscellaneous Notes* Telephone Encounter - Heide Clinton - 01/21/2022 9:41 AM EDT Appointment for 06/19/2022 needs to be rescheduled. 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 STAGE: cTis N0 M0, 0; pTis(DCIS) NX M0, 0 HISTORY OF PRESENT ILLNESS: Ms. Ralph is a 70-year-old female who was noted to have an abnormal screening mammogram on 07/29/21. Biopsy was recommended. Biopsy on 09/25/21 noted at least DCIS, grade 2 with papillary architecture. They noted findings were concerning for an encapsulated papillary carcinoma or a papillary type of DCIS. It was ER positive at greater than 95%. On 10/09/21 at [facility], Ms. Ralph underwent a right breast lumpectomy with AILEEN meat trimmer. 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 The DCIS was less than 0.1 mm from the posterior margin and widely negative at the other margins. The specimen marked extended anterior superior margin was negative. The specimen marked extended posterior margin showed atypical ductal hyperplasia. The conventional DCIS was a papillary, micropapillary and cribriform architecture as well as a central focus of encapsulated papillary carcinoma measuring approximately 5 mm. She presents for postoperative radiation. Patient is scheduled to have endocrine therapy following radiation. INTERVAL HISTORY: Patient presents today to check on healing. She notes that the lump is still present but smaller. Skin over top of the area has not changed much. The area is tender. No new health issues otherwise. PAST MEDICAL HISTORY: Macular degeneration and glaucoma. Bilateral hearing loss. She has bilateral hearing aids. Alcohol use. Pulmonary nodules. Reed's esophagus, she notes that endoscopy 1 to 2 years ago did not show further evidence. Discoid lupus. She notes the last skin lesions were at least 10 years ago when she stopped using hair dye. Hypertension. Herniated disc in the lumbosacral region. PAST SURGICAL HISTORY: Left breast biopsy a few years ago that she notes was negative. Appendectomy 1969. Bilateral bunionectomy on 09/23/21. Colonoscopy in 2011. Right cataract removal on 11/07/19. Tonsillectomy in 1956. Tubal ligation 1967. Upper endoscopy 1 to 2 years ago. Right breast biopsy 09/23/21. Right breast lumpectomy on 10/09/21. ALLERGIES: No Known Drug Allergies MEDICATIONS: 1. B Complex - Capsule Oral Daily 2. losartan - 1 Tablet Oral Daily 3. Lumigan - Ophthalmic Every day before sleep 4. Multiple Vitamin - Tablet Oral Daily 5. multivitamin - PO 6. Nexium - Capsule Oral Daily 7. riboflavin (vitamin B2) (bulk) - Other/Miscellaneous Daily Medications Last Reconciled by Gail Waggoner RN on 11/19/2021 SUMMARY OF SIGNIFICIANT X-RAY/LABORATORY FINDINGS: Pathology slides have been reviewed at [facility]. DCIS of grade 1-2 of papillary, micropapillary and cribriform pattern identified. It spanned at least 1.8 cm. On the lumpectomy specimen it focally abutted the inked posterior margin. Further tissue was removed from the posterior margin region and only showed atypical ductal hyperplasia. They noted that the new margin is approximately 10 mm in thickness. REVIEW OF SYSTEMS: Pain: 1. - Between no and mild pain No change. As above. KPS: 90 - Able to carry on normal activity; minor s/s of disease PHYSICAL EXAMINATION: VITALS: Temperature 97.5 F (11/19/21), Pulse 102 (11/19/21), Respirations 18 (11/19/21), Blood Pressure 122/78 (11/19/21) Weight 162 pounds 11/19/21 (Change since 10/31/21: -4.6 pounds) GENERAL: Awake, alert, oriented x3, no anxiety, dressed appropriately, appears of stated age. Ambulates without assistance. Speech pattern fluent. NECK: Symmetric. NODES: No supraclavicular, infraclavicular, or right axillary adenopathy. BREAST: Asymmetric. Right breast has protrusion where the prior surgical changes are noted. The postsurgical lumpiness is mobile and minimally tender. Overall the breast is softer and smaller than on prior exam. There is no sign of infection. Ecchymosis noted over the surgical site. SKIN: At surgical site still has ecchymotic area. The skin is intact. Scar is well-healed. IMPRESSION: Ms. 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 The area has improved since last examined. She wishes to pursue the radiation treatment. Information on skin care and activity are being given. She is being set up for an appointment for the planning session. Pathology has been reviewed at [facility]. It is noted that the margins are negative with the least 1 [address]iscuss[address] with Dr. Mcknight. PLAN: Postoperative external radiation to the right breast with conventional fractionation due to history of lupus. Chary Gamez MD, FACRO Total time: 25 minutes in chart review, path review, patient exam, patient counseling and care coordination. Electronically signed by: Chary Gamez MD , T: 3:51 PM CC: Javier Ny MD, Rex Villanueva DO, Kristy Mcknight MD [facility] Department of Radiation Oncology is an Accredited Facility of the [employer] (A[employer]). This document was completed utilizing speech recognition software. Grammatical errors, random word insertions, pronoun errors, and incomplete sentences are an occasional consequence of this system due to software limitations, ambient noise, and hardware issues. Any formal questions or concerns about the content, text or information contained within the body of this dictation should be directly addressed to the provider for clarification. PATIENT: Rahel Ralph : 1950 cc: Kristy Mcknight MD [facility] Physicians [facility] [address] [facility] [address] Rex Villanueva DO [address] [facility] [address] Javier Ny MD [address] [facility] [address] documented in this [facility] Work Phone: [phone]) 260-353207-21-2016 History of Past illness Narrative* Problem Noted Date Resolved Date Tobacco use disorder 03/26/2016 06/04/2020 documented as of this encounter (statuses as of 01/21/2022) [address]21-2016 History of Past illness Narrative* Problem Noted Date Resolved Date Tobacco use disorder 03/26/2016 06/04/2020 documented as of this encounter (statuses as of 03/11/2022) [place] [address]-21-2016 History of Past illness Narrative* Problem Noted Date Resolved Date Tobacco use disorder 03/26/2016 06/04/2020 documented as of this encounter (statuses as of 04/25/2022) [address]21-2016 History of Past illness Narrative* Problem Noted Date Resolved Date Tobacco use disorder 03/26/2016 06/04/2020 documented as of this encounter (statuses as of 07/20/2022) [address]21-2016 History of Past illness Narrative* Problem Noted Date Resolved Date Tobacco use disorder 03/26/2016 06/04/2020 documented as of this encounter (statuses as of 07/25/2022) [address]21-2016 History of Past illness Narrative* Problem Noted Date Resolved Date Tobacco use disorder 03/26/2016 06/04/2020 documented as of this encounter (statuses as of 08/04/2022) [address]21-2016 History of Past illness Narrative* Problem Noted Date Resolved Date Tobacco use disorder 03/26/2016 06/04/2020 documented as of this encounter (statuses as of 11/23/2022) [address]21-2016 History of Past illness Narrative* Problem Noted Date Resolved Date Tobacco use disorder 03/26/2016 06/04/2020 documented as of this encounter (statuses as of 11/27/2022) [address]21-2016 History of Past illness Narrative* Problem Noted Date Resolved Date Tobacco use disorder 03/26/2016 06/04/2020 documented as of this encounter (statuses as of 12/11/2022) [address]21-2016 History of Past illness Narrative* Problem Noted Date Diagnosed Date Resolved Date Tobacco use disorder 03/26/2016 020 documented as of this encounter (statuses as of 03/18/2023) [address]21-2016 History of Past illness Narrative* Problem Noted Date Diagnosed Date Resolved Date Tobacco use disorder 03/26/2016 020 documented as of this encounter (statuses as of 03/25/2023) [address]21-2016 History of Past illness Narrative* Problem Noted Date Diagnosed Date Resolved Date Tobacco use disorder 03/26/2016 020 documented as of this encounter (statuses as of 03/26/2023) [address]21-2016 History of Past illness Narrative* Problem Noted Date Diagnosed Date Resolved Date Tobacco use disorder 03/26/2016 020 documented as of this encounter (statuses as of 04/03/2023) [address]21-2016 History of Past illness Narrative* Problem Noted Date Diagnosed Date Resolved Date Tobacco use disorder 03/26/2016 020 documented as of this encounter (statuses as of 05/29/2023) [facility] note* Diagnosis 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 Screening mammogram for breast cancer documented in this encounter [facility]* Diagnosis Screening for lipid disorders- Primary Essential hypertension Unspecified essential hypertension documented in this encounter [facility] note* Diagnosis Screening mammogram for breast cancer History of breast cancer Personal history of malignant neoplasm of breast documented in this encounter [facility] note* Diagnosis Onset Date Resolution Status Nasal sore acute Staph aureus infection acute [facility] Work Phone: Evaluation note* Diagnosis Mild pulmonary hypertension (HCC)- Primary Other chronic pulmonary heart diseases Tricuspid valve regurgitation, nonrheumatic Tricuspid valve disorders, specified as nonrheumatic Primary hypertension Unspecified essential hypertension Alcohol abuse Alcohol abuse, unspecified Electronic cigarette use Reed's esophagus with dysplasia Reed's esophagus Tachycardia Tachycardia, unspecified documented in this encounter [facility] note* Diagnosis 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 documented in this encounter [facility] note* Diagnosis 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 documented in this encounter [facility] note* Diagnosis 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 documented in this encounter [facility] note* Diagnosis Essential hypertension Unspecified essential hypertension documented in this encounter [facility] note* Diagnosis Ductal carcinoma in situ (DCIS) of right breast documented in this encounter [facility] note* Diagnosis Mild pulmonary hypertension (HCC)- Primary Other chronic pulmonary heart diseases Essential hypertension Unspecified essential hypertension Alcohol abuse Alcohol abuse, unspecified Electronic cigarette use Reed's esophagus with dysplasia Reed's esophagus Tachycardia Tachycardia, unspecified LOPEZ (dyspnea on exertion) Other dyspnea and respiratory abnormality documented in this encounter [facility] note* Diagnosis LOPEZ (dyspnea on exertion) Other dyspnea and respiratory abnormality documented in this encounter [facility] note* Diagnosis 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 documented in this encounter [facility] note* Diagnosis Pre-op evaluation- Primary Preoperative examination, unspecified Screening for depression Encounter for screening examination for other mental health and behavioral disorders Current every day vaping Primary hypertension Unspecified essential hypertension History of ductal carcinoma in situ (DCIS) of breast Glaucoma, unspecified glaucoma type, unspecified laterality Macular degeneration of right eye, unspecified type Alcohol abuse Alcohol abuse, unspecified documented in this encounter [facility] note* Diagnosis Current every day vaping Pre-op evaluation Preoperative examination, unspecified [facility] Essential hypertension Unspecified essential hypertension documented in this encounter [facility] for referral (narrative)* Diagnostic Procedure Only (Routine) - Pending Review Specialty Diagnoses / Procedures [facility] To [facility] Diagnoses Screening mammogram for breast cancer Procedures KITA DIAGNOST[facility] BILAT DIAGNOSTIC MAMMOGRAPHY COMPUTER-AIDED DETCJ BI Kristy Mcknight MD [address] [facility] [address] [place] [address] Br Imaging [address] [place] [address] Referral ID Status Reason Start Date Expiration Date Visits Requested Visits Authorized [id number] Pending Review Auto-Generat ed Referral 05/23/2023 1 1 [facility] for referral (narrative)* Outpatient Procedure (Routine) - Pending Review Specialty Diagnoses / Procedures [facility] Diagnoses Mild pulmonary hypertension (HCC) Tricuspid valve regurgitation, nonrheumatic Procedures ECHO ECHO TTHRC R-T 2D W/WOM-MODE COMPL SPEC&COLR D Luis A Victor MD [address] [place] [address] [facility] [address] [address] Referral ID Status Reason Start Date Expiration Date Visits Requested Visits Authorized [id number] Pending Review Auto-Generat ed Referral 03/18/2023 03/17/2024 1 1 [facility] for referral (narrative)* Diagnostic Procedure Only (Routine) - Authorized Specialty Diagnoses / Procedures [facility] Referred To Contact MOLECULAR & FUNCTIONAL IMAGING Diagnoses LOPEZ (dyspnea on exertion) Procedures NM CARDIAC PERF STRESS/PHARM MYOCARDIAL SPECT MULTIPLE STUDIES CV STRS TST XERS&/OR RX CONT ECG W/SI&R CV STRS TST XERS&/OR RX CONT ECG W/O I&R CV STRS TST XERS&/OR RX CONT ECG I&R ONLY Luis A Victor MD [address] [place] [address] Molecular & Functional Imaging [address] [place] [id number] Referral ID Status Reason Start Date Expiration Date Visits Requested Visits Authorized [id number] Authorized Auto-Generat ed Referral 09/05/2024 2 2 [facility] for referral (narrative)* Diagnostic Procedure Only (Routine) - Closed Specialty Diagnoses / Procedures Referred By Contac t Referred To Contact MOLECULAR & FUNCTIONAL IMAGING Diagnoses LOPEZ (dyspnea on exertion) Procedures NM CARDIAC PERF STRESS/PHARM MYOCARDIAL SPECT MULTIPLE STUDIES CV STRS TST XERS&/OR RX CONT ECG W/SI&R CV STRS TST XERS&/OR RX CONT ECG W/O I&R CV STRS TST XERS&/OR RX CONT ECG I&R ONLY Luis A Victor MD [address] [place] [address] Molecular & Functional Imaging [address] [place] [address] Referral ID Status Reason Start Date Expiration Date V isits Requested Visits Authorized [id number] Closed Auto-Generate d Referral 06/22/2024 09/05/2024 2 2 [facility] for visit Narrative* Diagnostic Procedure Only (Routine) - Closed Specialty Diagnoses / Procedures Referred By Contac t Referred To Contact [facility] Diagnoses Screening mammogram for breast cancer Procedures KITA DIAGNOSTIC BILAT DIAGNOSTIC MAMMOGRAPHY COMPUTER-AIDED DETCJ Kristy House MD [address] [address] [facility] [address] [place] [address] Referral ID Status Reason Start Date Expiration Date V isits Requested Visits Authorized [id number] Closed Auto-Generate d Referral 07/30/2022 09/05/2022 1 1 [facility] for visit Narrative* Outpatient Procedure (Routine) - Closed Specialty Diagnoses / Procedures Referred By Contac t Referred To Contact [facility] Diagnoses Mild pulmonary hypertension (HCC) Tricuspid valve regurgitation, nonrheumatic Procedures ECHO ECHO TTHRC R-T 2D W/WOM-MODE COMPL SPEC&COLR D Luis A Victor MD [address] [place] [address] Fax: [facility] [place] [address] [place] [address] Referral ID Status Reason Start Date Expiration Date V isits Requested Visits Authorized [id number] Closed Auto-Generate d Referral 03/22/2023 06/19/2023 1 1 [facility] for visit Narrative* Diagnostic Procedure Only (Routine) - Closed Specialty Diagnoses / Procedures Referred By Contac t Referred To Contact [facility] Diagnoses Ductal carcinoma in situ (DCIS) of right breast Procedures KITA NDL LOC W KITA GD RT PERQ DEVICE PLACEMENT BREAST LOC 1ST LES W/GDNCE Kristy Mcknight MD [address] [address] [facility] [address] [place] [address] Referral ID Status Reason Start Date Expiration Date V isits Requested Visits Authorized [id number] Closed Auto-Generate d Referral 10/02/2021 09/05/2022 1 1 [facility] for visit Narrative* Diagnostic Procedure Only (Routine) - Closed Specialty Diagnoses / Procedures [facility]AL [facility] Diagnoses LOPEZ (dyspnea on exertion) Procedures NM CARDIAC PERF STRESS/PHARM MYOCARDIAL SPECT MULTIPLE STUDIES CV STRS TST XERS&/OR RX CONT ECG W/SI&R CV STRS TST XERS&/OR RX CONT ECG W/O I&R CV STRS TST XERS&/OR RX CONT ECG I&R ONLY Luis A Victor MD [address] [place] [address] Fax: [facility] [address] [place] [address] Referral ID Status Reason Start Date Expiration Date V isits Requested Visits Authorized [id number] Closed Auto-Generate d Referral 06/22/2024 09/05/2024 2 2 [facility] Summary Purpose Family History No Family History Records Found Family Member Condition Father Mother Advance Directives No Advanced Directives Records FoundDocuments on File Type Date Recorded 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 Expl anation ACP-Advance Directive 11/27/2021 12:00 AM Documents on File Type Date Recorded 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 Expl anation Advance Directive(s) 10/09/2021 10:29 AM Advance Directive(s) 10/02/2021 11:15 AM Advance Directive(s) 10/02/2021 2:08 PM Advance Directive(s) 07/30/2021 2:26 PM Documents on File Type Date Recorded 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 Expl 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 Advance Directive(s) 10/02/2021 2:08 PM Documents on File Type Date Recorded 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 Expl 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 Advance Directive(s) 10/02/2021 2:08 PM Chief Complaint and Reason for Visit Chief Complaint Nose sore Reason for Visit Nasal sore Staph aureus infection Additional Source Comments INFORMATION SOURCE (unrecogn ized section and content) DATE CREATED AUTHOR 05/08/2020 [facility] DATE CREATED AUTHOR AUTHOR'S ORGANIZ ATION 07/18/2020 [facility] DATE CREATED AUTHOR AUTHOR'S ORGANIZ ATION 06/18/2021 [facility] DATE CREATED AUTHOR AUTHOR'S ORGANIZ ATION 02/20/2022 [facility] DATE CREATED AUTHOR AUTHOR'S ORGANIZ ATION 05/29/2023 [facility] DATE CREATED AUTHOR AUTHOR'S ORGANIZ ATION 05/20/2024 [facility] DATE CREATED AUTHOR AUTHOR'S ORGANIZ ATION 07/04/2024 [facility] DATE CREATED AUTHOR AUTHOR'S ORGANIZ ATION 08/26/2024 [facility] DATE CREATED AUTHOR AUTHOR'S ORGANIZ ATION 07/18/2025 [facility] Care Teams (unrecognized sec tion and content) Dog Boarder Relationship Specialty Start Date End Date Javier Ny [address] [facility] [address] [place] [address] PCP - General Internal Medicine 10/29/21 Dog Boarder Relationship Specialty Start Date End Date Javier Ny [address] [place] [address] PCP - General Internal Medicine 10/29/21 Dog Boarder Relationship Specialty Start Date End Date Javier Ny [address] [place] [address] PCP - General Internal Medicine 10/29/21 Dog Boarder Relationship Specialty Start Date End Date Javier Ny [address] [place] [address] PCP - General Internal Medicine 10/29/21 Dog Boarder Relationship Specialty Start Date End Date Javier Ny MD [address] [place] [address] PCP - General Internal Medicine 06/14/20 Dog Boarder Relationship Specialty Start Date End Date Javier Ny MD [address] [place] [address] PCP - General Internal Medicine 06/14/20 Dog Boarder Relationship Specialty Start Date End Date Javier Ny MD [address] [place] [address] PCP - General Internal Medicine 06/14/20 Dog Boarder Relationship Specialty Start Date End Date Grant Vaca Jr., MD [address] [place] [address] PCP - General Family Medicine 07/20/22 Dog Boarder Relationship Specialty Start Date End Date Grant Vaca Jr., MD [address] [place] [address] PCP - General Family Medicine 07/20/22 Dog Boarder Relationship Specialty Start Date End Date Grant Vaca Jr., MD [address] [place] [address] PCP - General Family Medicine 07/20/22 Dog Boarder Relationship Specialty Start Date End Date Grant Vaca Jr., MD [address] [place] [address] PCP - General Family Medicine 07/20/22 Dog Boarder Relationship Specialty Start Date End Date Grant Vaca Jr., MD [address] [place] [address] PCP - General Family Medicine 07/20/22 Dog Boarder Relationship Specialty Start Date End Date Grant Vaca Jr., MD [address] [place] [address] PCP - General Family Medicine 07/20/22 Team Status: Inactive Member Role Status Dates Kerwin Tejada CYBERATHLETE, CYBERATHLETE-C Attending Provider Active Dog Boarder Relationship Specialty Start Date End Date Grant Vaca Jr., MD [address] [place] [address] PCP - General Family Medicine 07/20/22 Dog Boarder Relationship Specialty Start Date End Date Grant Vaca Jr., MD [address] [place] [address] PCP - General Family Medicine 07/20/22 Dog Boarder Relationship Specialty Start Date End Date Grant Vaca Jr., MD [address] [place] [address] PCP - General Family Medicine 07/20/22 Dog Boarder Relationship Specialty Start Date End Date Grant Vaca Jr., MD [address] [place] [address] PCP - General Family Medicine 07/20/22 Dog Boarder Relationship Specialty Start Date End Date Javier Ny [address] [place] [address] PCP - General 10/29/21 Rex Villanueva DO [address] [place] [address] Consulting Physician Hematology and Oncology 10/29/21 Chary Gamez MD [address] [place] [address] Consulting Physician Radiation Oncology 10/31/21 Kristy Mcknight MD 0 [facility] [address] [place] [address] General Surgery 10/09/21 Dog Boarder Relationship Specialty Start Date End Date Javier Ny [address] [place] [address] PCP - General 10/29/21 Rex Villanueva DO [address] [place] [address] Consulting Physician Hematology and Oncology 10/29/21 Chary Gamez MD [address] [place] [address] Consulting Physician Radiation Oncology 10/31/21 Kristy Mcknight MD [address] [facility] [address] [place] [address] General Surgery 10/09/21 Dog Boarder Relationship Specialty Start Date End Date Grant Vaca Jr., MD [address] [place] [address] PCP - General Family Medicine 07/20/22 Dog Boarder Relationship Specialty Start Date End Date Grant Vaca Jr., MD [address] [place] [address] PCP - General Family Medicine 07/20/22 Dog Boarder Relationship Specialty Start Date End Date Grant Vaca Jr., MD [address] [place] [address] PCP - General Family Medicine 07/20/22 Dog Boarder Relationship Specialty Start Date End Date Grant Vaca Jr., MD [address] [place] [address] PCP - General Family Medicine 07/20/22 Dog Boarder Relationship Specialty Start Date End Date Grant Vaca Jr., MD [address] [place] [address] PCP - General Family Medicine 07/20/22 Dog Boarder Relationship Specialty Start Date End Date Javier Ny MD [address] [place] [address] PCP - General Internal Medicine 06/14/20 07/19/22 Dog Boarder Relationship Specialty Start Date End Date Grant Vaca Jr., MD [address] [place] [address] PCP - General Family Medicine 07/20/22 Dog Boarder Relationship Specialty Start Date End Date Grant Vaca Jr., MD [address] [place] [address] PCP - General Family Medicine 07/20/22 Dog Boarder Relationship Specialty Start Date End Date Grant Vaca Jr., MD [address] [place] [address] PCP - General Family Medicine 07/20/22 Dog Boarder Relationship Specialty Start Date End Date Grant Vaca Jr., MD [address] [place] [address] PCP - General Family Medicine 07/20/22 Dog Boarder Relationship Specialty Start Date End Date Grant Vaca Jr., MD [address] [place] [address] PCP - General Family Medicine 07/20/22 Dog Boarder Relationship Specialty Start Date End Date Grant Vaca Jr., MD [address] [place] [address] PCP - General Family Medicine 07/20/22 Dog Boarder Relationship Specialty Start Date End Date Javier Ny [address] [place] [address] PCP - General 10/29/21 Rex Villanueva DO [address] [place] [address] Consulting Physician Hematology and Oncology 10/29/21 Chary Gamez MD [address] [place] [address] Consulting Physician Radiation Oncology 10/31/21 Kristy Mcknight MD [address] [facility] [address] [place] [address] General Surgery 10/09/21 Dog Boarder Relationship Specialty Start Date End Date Javier Ny [address] [place] [address] PCP - General 10/29/21 Rex Villanueva DO [address] [facility] [address] [place] [address] Consulting Physician Hematology and Oncology 10/29/21 Chary Gamez MD [address] [facility] [address] [place] [address] Consulting Physician Radiation Oncology 10/31/21 Kristy Mcknight MD [address] [place] [address] [address] [place] [address] General Surgery 10/09/21 Dog Boarder Relationship Specialty Start Date End Date Zara Key MD [address] [place] [address] PCP - General Internal Medicine 08/25/24 Dog Boarder Relationship Specialty Start Date End Date Zara Key MD [address] [place] [address] PCP - General Internal Medicine 08/25/24 Dog Boarder Relationship Specialty Start Date End Date Zara Key MD [address] [place] [address] PCP - General Internal Medicine 08/25/24 Dog Boarder Relationship Specialty Start Date End Date Zara Key MD [address] [place] [address] PCP - General Internal Medicine 08/25/24 Dog Boarder Relationship Specialty Start Date End Date Zara Key MD [address] [place] [address] PCP - General Internal Medicine 08/25/24 Source Comments (unrecognize d section and content) In the event this informatio n is protected by the Federal Confidentiality of Alcohol and Drug Abuse Patient Records regulations: The Federal rules restrict any use of the information to criminally investigate or prosecute any alcohol or drug abuse patient.[facility] the event this information is protected by the Federal Confidentiality of Alcohol and Drug Abuse Patient Records regulations: The Federal rules restrict any use of the information to criminally investigate or prosecute any alcohol or drug abuse patient.[facility] Center[facility] the event this information is protected by the Federal Confidentiality of Alcohol and Drug Abuse Patient Records regulations: The Federal rules restrict any use of the information to criminally investigate or prosecute any alcohol or drug abuse patient.[facility] Center[facility] the event this information is protected by the Federal Confidentiality of Alcohol and Drug Abuse Patient Records regulations: The Federal rules restrict any use of the information to criminally investigate or prosecute any alcohol or drug abuse patient.[facility] Center[facility] the event this information is protected by the Federal Confidentiality of Alcohol and Drug Abuse Patient Records regulations: The Federal rules restrict any use of the information to criminally investigate or prosecute any alcohol or drug abuse patient.[facility] Center[facility] the event this information is protected by the Federal Confidentiality of Alcohol and Drug Abuse Patient Records regulations: The Federal rules restrict any use of the information to criminally investigate or prosecute any alcohol or drug abuse patient.[facility] CenterIn the event this information is protected by the Federal Confidentiality of Alcohol and Drug Abuse Patient Records regulations: The Federal rules restrict any use of the information to criminally investigate or prosecute any alcohol or drug abuse patient.[facility] CenterIn the event this information is protected by the Federal Confidentiality of Alcohol and Drug Abuse Patient Records regulations: The Federal rules restrict any use of the information to criminally investigate or prosecute any alcohol or drug abuse patient.[facility] CenterIn the event this information is protected by the Federal Confidentiality of Alcohol and Drug Abuse Patient Records regulations: The Federal rules restrict any use of the information to criminally investigate or prosecute any alcohol or drug abuse patient.[facility] Center[facility] the event this information is protected by the Federal Confidentiality of Alcohol and Drug Abuse Patient Records regulations: The Federal rules restrict any use of the information to criminally investigate or prosecute any alcohol or drug abuse patient.[facility] CenterIn the event this information is protected by the Federal Confidentiality of Alcohol and Drug Abuse Patient Records regulations: The Federal rules restrict any use of the information to criminally investigate or prosecute any alcohol or drug abuse patient.[facility] CenterIn the event this information is protected by the Federal Confidentiality of Alcohol and Drug Abuse Patient Records regulations: The Federal rules restrict any use of the information to criminally investigate or prosecute any alcohol or drug abuse patient.[facility] CenterIn the event this information is protected by the Federal Confidentiality of Alcohol and Drug Abuse Patient Records regulations: The Federal rules restrict any use of the information to criminally investigate or prosecute any alcohol or drug abuse patient.[facility] CenterIn the event this information is protected by the Federal Confidentiality of Alcohol and Drug Abuse Patient Records regulations: The Federal rules restrict any use of the information to criminally investigate or prosecute any alcohol or drug abuse patient.[facility] CenterIn the event this information is protected by the Federal Confidentiality of Alcohol and Drug Abuse Patient Records regulations: The Federal rules restrict any use of the information to criminally investigate or prosecute any alcohol or drug abuse patient.[facility] CenterIn the event this information is protected by the Federal Confidentiality of Alcohol and Drug Abuse Patient Records regulations: The Federal rules restrict any use of the information to criminally investigate or prosecute any alcohol or drug abuse patient.[facility] CenterIn the event this information is protected by the Federal Confidentiality of Alcohol and Drug Abuse Patient Records regulations: The Federal rules restrict any use of the information to criminally investigate or prosecute any alcohol or drug abuse patient.[facility] CenterIn the event this information is protected by the Federal Confidentiality of Alcohol and Drug Abuse Patient Records regulations: The Federal rules restrict any use of the information to criminally investigate or prosecute any alcohol or drug abuse patient.[facility] the event this information is protected by the Federal Confidentiality of Alcohol and Drug Abuse Patient Records regulations: The Federal rules restrict any use of the information to criminally investigate or prosecute any alcohol or drug abuse patient.[facility] CenterIn the event this information is protected by the Federal Confidentiality of Alcohol and Drug Abuse Patient Records regulations: The Federal rules restrict any use of the information to criminally investigate or prosecute any alcohol or drug abuse patient.[facility] CenterIn the event this information is protected by the Federal Confidentiality of Alcohol and Drug Abuse Patient Records regulations: The Federal rules restrict any use of the information to criminally investigate or prosecute any alcohol or drug abuse patient.[facility] CenterIn the event this information is protected by the Federal Confidentiality of Alcohol and Drug Abuse Patient Records regulations: The Federal rules restrict any use of the information to criminally investigate or prosecute any alcohol or drug abuse patient.[facility] CenterIn the event this information is protected by the Federal Confidentiality of Alcohol and Drug Abuse Patient Records regulations: The Federal rules restrict any use of the information to criminally investigate or prosecute any alcohol or drug abuse patient.[facility] CenterIn the event this information is protected by the Federal Confidentiality of Alcohol and Drug Abuse Patient Records regulations: The Federal rules restrict any use of the information to criminally investigate or prosecute any alcohol or drug abuse patient.[facility] CenterIn the event this information is protected by the Federal Confidentiality of Alcohol and Drug Abuse Patient Records regulations: The Federal rules restrict any use of the information to criminally investigate or prosecute any alcohol or drug abuse patient.[facility] CenterIn the event this information is protected by the Federal Confidentiality of Alcohol and Drug Abuse Patient Records regulations: The Federal rules restrict any use of the information to criminally investigate or prosecute any alcohol or drug abuse patient.[facility] CenterIn the event this information is protected by the Federal Confidentiality of Alcohol and Drug Abuse Patient Records regulations: The Federal rules restrict any use of the information to criminally investigate or prosecute any alcohol or drug abuse patient.[facility] CenterIn the event this information is protected by the Federal Confidentiality of Alcohol and Drug Abuse Patient Records regulations: The Federal rules restrict any use of the information to criminally investigate or prosecute any alcohol or drug abuse patient.[facility] CenterIn the event this information is protected by the Federal Confidentiality of Alcohol and Drug Abuse Patient Records regulations: The Federal rules restrict any use of the information to criminally investigate or prosecute any alcohol or drug abuse patient.[facility] CenterIn the event this information is protected by the Federal Confidentiality of Alcohol and Drug Abuse Patient Records regulations: The Federal rules restrict any use of the information to criminally investigate or prosecute any alcohol or drug abuse patient.[facility] CenterIn the event this information is protected by the Federal Confidentiality of Alcohol and Drug Abuse Patient Records regulations: The Federal rules restrict any use of the information to criminally investigate or prosecute any alcohol or drug abuse patient.[facility] CenterIn the event this information is protected by the Federal Confidentiality of Alcohol and Drug Abuse Patient Records regulations: The Federal rules restrict any use of the information to criminally investigate or prosecute any alcohol or drug abuse patient.[facility] CenterIn the event this information is protected by the Federal Confidentiality of Alcohol and Drug Abuse Patient Records regulations: The Federal rules restrict any use of the information to criminally investigate or prosecute any alcohol or drug abuse patient.[facility] CenterIn the event this information is protected by the Federal Confidentiality of Alcohol and Drug Abuse Patient Records regulations: The Federal rules restrict any use of the information to criminally investigate or prosecute any alcohol or drug abuse patient.[facility] CenterIn the event this information is protected by the Federal Confidentiality of Alcohol and Drug Abuse Patient Records regulations: The Federal rules restrict any use of the information to criminally investigate or prosecute any alcohol or drug abuse patient.[facility] CenterIn the event this information is protected by the Federal Confidentiality of Alcohol and Drug Abuse Patient Records regulations: The Federal rules restrict any use of the information to criminally investigate or prosecute any alcohol or drug abuse patient.[facility] CenterIn the event this information is protected by the Federal Confidentiality of Alcohol and Drug Abuse Patient Records regulations: The Federal rules restrict any use of the information to criminally investigate or prosecute any alcohol or drug abuse patient.[facility] CenterIn the event this information is protected by the Federal Confidentiality of Alcohol and Drug Abuse Patient Records regulations: The Federal rules restrict any use of the information to criminally investigate or prosecute any alcohol or drug abuse patient.[facility] CenterIn the event this information is protected by the Federal Confidentiality of Alcohol and Drug Abuse Patient Records regulations: The Federal rules restrict any use of the information to criminally investigate or prosecute any alcohol or drug abuse patient.[facility] Reason for Visit (unrecogniz ed section and content) Reason Comments Appointment Letter Mailed Reason Comments Follow Up Left Breast Lumpecto my 10/09/21 Reason Comments Establish Care Constipation Reason Comments Yearly Exam No issues Reason Comments Results Reason Comments Refill Request Reason Comments Follow Up Clinical Breast Exam Reason Comments Breast Cancer Reason Comments Follow-up Follow up Reason Comments Follow Up Reason Comments Reminder Call Reason Comments Cardiac Clearance Reason Comments Breast Cancer Patient thinks she's due for a Bone Density exam. States that she will be getting neck surgery within the coming weeks. Sees Surgeon tomorrow regarding this. Needs medication refill. Reason Comments Follow-up Reason Comments Establish Care Reason Comments Patient Question Reason Onset Date Comments Refill Request 12/12/2024 Goals (unrecognized section and content) Goals may be documented in a n alternate section No Information Available FOR RECORDS PERTAINING TO PATIENTS WHO ARE OR HAVE BEEN ENROLLED IN A CHEMICAL DEPENDENCY/SUBSTANCEABUSE PROGRAM, SOME INFORMATION MAY BE OMITTED. This clinical summary was aggregated from multiple sources. Caution should be exercised in using it in the provision of clinical care. This summary normalizes information from multiple sources, and as a consequence, information in this document may materially change the coding, format and clinical context of patient data. In addition, data may be omitted in some cases. CLINICAL DECISIONS SHOULD BE BASED ON THE PRIMARY CLINICAL RECORDS. [facility] provides no warranty or guarantee of the accuracy or completeness of information in this document.
[2025-08-28 00:08] LABS: AST(SGOT) 47 U/L (<=31); Alanine Aminotransfer ALT/SGPT 29 U/L (<=34); Albumin, Serum 4.6 g/dL (3.4-4.8); Alkaline Phosphatase 131 U/L (35-104); Anion Gap 14 (7-18); BUN 11 mg/dL (4-19); BUN/Creat Ratio 12.1 RATIO (10-20); Calcium,Total 10.3 mg/dL (7.6-11.0); Carbon Dioxide 26.6 mmol/L (20.0-29.0); Chloride 92 mmol/L (96-106); Cholesterol 203 mg/dL (<=200); Globulin 3.0 g/dL (2.2-4.2); Glucose 114 mg/dL (70-99); Hematocrit 32.9 % (37-47); Hemoglobin 11.8 g/dL (12.0-15.0); Immature Granulocytes Count 0.010 X10^3/uL (0.0-0.0); Low Density Lipoprotein Calc. 70 mg/dL; Mean Corp Hgb Conc 35.9 g/dL (32-36); Mean Corpuscular Volume 99.7 fL (81-99); Mean Platelet Vol. 11.2 fl (6.2-12.0); NRBC Flagged by Analyzer 0 % (0-5); Platelet Count 173 K/mm3 (150-450); Potassium 4.8 mmol/L (3.5-5.1); RBC Distribution Width CV 13.2 % (11.6-14.6); RBC Distribution Width SD 47.9 fl (35.1-43.9); Red Blood Count 3.30 M/mm3 (4.2-5.4); Triglycerides 48 mg/dL; Very Low Density Lipoprotein 10 mg/dL (5-40); White Blood Count 4.1 K/mm3 (4.4-11.0); cholesterol:hdl ratio screen 1.64
== END | disposition home or self-care (01) ==
PROVIDERS: PCP Nurse Practitioner; Referring Provider Nurse Practitioner; Visit Provider Nurse Practitioner
DX: I10 Essential (primary) hypertension (principal); E78.00 Pure hypercholesterolemia, unspecified
CPT/HCPCS: 80053; 80061; 85025